=== PATIENT | male | born 1955 | race Caucasian/White ===

== ENCOUNTER 2022-03-13 14:56 | Outpatient (CLI) | payer OTHER, SELFPAY ==
[2022-03-13 19:38] LABS: Hematocrit 42.6 % (42.0-52.0); Hemoglobin 14.5 g/dL (14.0-18.0); Mean Corpuscular Hemoglobin 30.3 pg (26-34); Mean Corpuscular Volume 88.9 fl (80-100); Mean Platelet Volume 9.3 fl (7.4-10.4); Platelet Count Result 281 k/mm3 (150-375); Red Blood Count 4.79 M/mm3 (4.6-6.20); Red Cell Distribution Width 13.8 % (11.5-14.5); White Blood Count 11.8 K/mm3 (4.5-10.0)
[2022-03-13 20:07] LABS: Creatinine Urine 74.6 mg/dL
[2022-03-13 20:09] LABS: Alanine Aminotransferase 18 U/L (6-50); Albumin Level 4.7 g/dL (3.5-5.1); Alkaline Phosphatase 91 U/L (38-126); Anion Gap 12 mmol/L (8-16); Aspartate Amino Transferase 25 U/L (17-59); Bilirubin,Total 1.3 mg/dL (0.2-1.3); Blood Urea Nitrogen 19 mg/dL (9-20); Calcium 9.4 mg/dL (8.4-10.2); Carbon Dioxide 22 mmol/L (22-30); Chloride 103 mmol/L (98-107); Cholesterol 118 mg/dL (0-200); Estimated Glomerular Filt Rate > 60; Glucose 101 mg/dL (65-110); HDL Direct 38 mg/dL; Potassium 4.3 mmol/L (3.4-5.0); Sodium 137 mmol/L (137-145); Triglycerides 209 mg/dL (<150)
[2022-03-13 20:12] LABS: MALB Creatinine Ratio 195.6 mg/g (0-30); Microalbumin Urine Random 145.9 mg/L (0-16.7)
[2022-03-13 20:17] LABS: Hemoglobin A1C 7.1 % (<5.7)
[2022-03-13 20:20] LABS: LDL Cholesterol Direct 39 mg/dL
[2022-03-13 20:40] LABS: Prostate Specific Antigen 1.5 ng/mL (< OR = 4.0)
== END 2022-03-13 14:57 | disposition home or self-care (01) ==
PROVIDERS: PCP Family Medicine; Visit Provider Family Medicine
DX: Z12.5 Encounter for screening for malignant neoplasm of prostate (principal); E11.9 Type 2 diabetes mellitus without complications; I25.10 Atherosclerotic heart disease of native coronary artery without angina pectoris; E03.9 Hypothyroidism, unspecified; Z00.00 Encounter for general adult medical examination without abnormal findings
CPT/HCPCS: 36415; 80053; 80061; 82043; 83036; 84153; 84439; 84443; 85027; G0103

== ENCOUNTER 2022-04-22 12:21 | Outpatient (CLI) | payer OTHER, SELFPAY ==
[2022-04-22 20:30] LABS: Thyroid Stimulating Hormone 0.347 uIU/mL (0.465-4.680)
== END 2022-04-22 12:22 | disposition home or self-care (01) ==
PROVIDERS: PCP Family Medicine; Visit Provider Family Medicine
DX: E03.9 Hypothyroidism, unspecified (principal)
CPT/HCPCS: 36415; 84439; 84443; 84481

== ENCOUNTER 2022-05-07 12:32 | Outpatient (CLI) | payer OTHER, SELFPAY ==
[2022-05-07 20:20] LABS: Thyroid Stimulating Hormone 0.409 uIU/mL (0.465-4.680)
[2022-05-07 21:38] LABS: Free T4 Free Thyroxine 2.04 ng/mL (0.78-2.19)
[2022-05-11 05:13] LABS: Triiodothyronine T3 Free 2.9 pg/mL (2.3-4.2)
== END 2022-05-07 12:33 | disposition home or self-care (01) ==
PROVIDERS: PCP Family Medicine; Visit Provider Family Medicine
DX: E03.9 Hypothyroidism, unspecified (principal)
CPT/HCPCS: 36415; 84439; 84443; 84481

== ENCOUNTER 2022-06-25 12:36 | Outpatient (CLI) | payer OTHER, SELFPAY ==
[2022-06-25 19:04] LABS: Thyroid Stimulating Hormone 0.454 uIU/mL (0.465-4.680)
== END 2022-06-25 12:37 | disposition home or self-care (01) ==
PROVIDERS: PCP Family Medicine; Visit Provider Family Medicine
DX: E03.9 Hypothyroidism, unspecified (principal)
CPT/HCPCS: 36415; 84443

== ENCOUNTER 2022-06-26 14:39 | Outpatient (CLI) | payer OTHER, SELFPAY ==
[2022-06-26 19:29] LABS: Alanine Aminotransferase 26 U/L (6-50); Albumin Level 4.6 g/dL (3.5-5.1); Alkaline Phosphatase 87 U/L (38-126); Anion Gap 12 mmol/L (8-16); Aspartate Amino Transferase 90 U/L (17-59); Bilirubin,Total 1.2 mg/dL (0.2-1.3); Blood Urea Nitrogen 13 mg/dL (9-20); Calcium 9.5 mg/dL (8.4-10.2); Carbon Dioxide 25 mmol/L (22-30); Chloride 102 mmol/L (98-107); Estimated Glomerular Filt Rate > 60; Glucose 134 mg/dL (65-110); Magnesium 2.2 mg/dL (1.6-2.3); Potassium 4.4 mmol/L (3.4-5.0); Sodium 139 mmol/L (137-145)
[2022-06-26 19:31] LABS: Hemoglobin A1C 6.9 % (<5.7)
[2022-06-26 19:55] LABS: Hemoglobin 14.4 g/dL (14.0-18.0); Mean Corpuscular HGB Conc 33.5 g/dl (32-36); Mean Corpuscular Hemoglobin 29.9 pg (26-34); Mean Corpuscular Volume 89.4 fl (80-100); Mean Platelet Volume 9.6 fl (7.4-10.4); Platelet Count Result 262 k/mm3 (150-375); Red Blood Count 4.81 M/mm3 (4.6-6.20); White Blood Count 10.7 K/mm3 (4.5-10.0)
[2022-06-26 20:04] LABS: Iron 60 ug/dL (49-181)
[2022-06-26 20:20] LABS: Percent Iron Saturation 18 % (20-50)
[2022-06-26 20:37] LABS: Creatinine Urine 47.1 mg/dL
[2022-06-26 20:44] LABS: MALB Creatinine Ratio 29.7 mg/g (0-30)
== END 2022-06-26 14:40 | disposition home or self-care (01) ==
PROVIDERS: PCP Family Medicine; Visit Provider Family Medicine
DX: R25.2 Cramp and spasm (principal); I25.10 Atherosclerotic heart disease of native coronary artery without angina pectoris; F41.9 Anxiety disorder, unspecified; E03.9 Hypothyroidism, unspecified; G25.81 Restless legs syndrome; E11.9 Type 2 diabetes mellitus without complications
CPT/HCPCS: 36415; 80053; 82043; 83036; 83540; 83550; 83735; 85027

== ENCOUNTER 2022-08-27 16:10 | Outpatient (CLI) | payer OTHER, SELFPAY ==
--- NOTE | ~2022-08-27 | XR_ITS ---
XR lumbar spine 2-3V DATE: 08/27/2022 16:21 INDICATION: Chronic low back pain TECHNIQUE: AP, lateral, coned lateral lumbosacral views COMPARISON: None FINDINGS: There is minimal dextroscoliosis of the lumbar spine. There is grade 1 anterolisthesis at L5-S1. Prominent degenerative changes are noted at the apophyseal joints. There is severe degenerative disc disease throughout the lumbar and lumbosacral spine. Included lower thoracic and lumbar pedicles are intact. No fracture or bone destruction is detected. The sacral iliac joints are unremarkable. IMPRESSION: Minimal dextro scoliosis Severe degenerative disc disease throughout the lumbar and lumbosacral spine Grade 1 anterolisthesis at L5-S1 Reviewed, dictated and finalized at location B. UCTOR PULLMAN
== END 2022-08-27 16:11 | disposition home or self-care (01) ==
LOC: ANHBWCIMG 16:11
PROVIDERS: PCP Family Medicine; Visit Provider Family Medicine
DX: M51.36 Other intervertebral disc degeneration, lumbar region (principal)
CPT/HCPCS: 72100

== ENCOUNTER 2022-10-16 15:12 | Outpatient (CLI) | payer OTHER, SELFPAY ==
[2022-10-16 22:53] LABS: Free T4 Free Thyroxine 1.46 ng/mL (0.78-2.19)
[2022-10-20 14:24] LABS: Triiodothyronine T3 Free 2.6 pg/mL (2.3-4.2)
== END 2022-10-16 15:13 | disposition home or self-care (01) ==
LOC: ANHBWCLAB 15:13
PROVIDERS: PCP Family Medicine; Visit Provider Family Medicine
DX: E11.9 Type 2 diabetes mellitus without complications (principal); E03.9 Hypothyroidism, unspecified
CPT/HCPCS: 36415; 84439; 84443; 84481

== ENCOUNTER 2022-11-03 13:17 | Outpatient (CLI) | payer OTHER, SELFPAY ==
[2022-11-03 20:36] LABS: Alanine Aminotransferase 24 U/L (6-50); Albumin Level 4.2 g/dL (3.5-5.1); Alkaline Phosphatase 66 U/L (38-126); Anion Gap 7 mmol/L (8-16); Aspartate Amino Transferase 61 U/L (17-59); Bilirubin,Total 1.1 mg/dL (0.2-1.3); Blood Urea Nitrogen 12 mg/dL (9-20); Calcium 8.8 mg/dL (8.4-10.2); Carbon Dioxide 28 mmol/L (22-30); Chloride 106 mmol/L (98-107); Estimated Glomerular Filt Rate > 60; Glucose 145 mg/dL (65-110); Potassium 4.2 mmol/L (3.4-5.0); Sodium 141 mmol/L (137-145)
[2022-11-03 21:06] LABS: Hemoglobin A1C 6.7 % (<5.7)
[2022-11-03 21:16] LABS: Hepatitis B Surface Antigen Negative (Negative)
[2022-11-03 21:19] LABS: MALB Creatinine Ratio 41.3 mg/g (0-30); Microalbumin Urine Random 6.6 mg/L (0-16.7)
[2022-11-03 21:22] LABS: HAV RESULT Negative (Negative); Hepatitis B Core IgM Result Negative (Negative)
[2022-11-03 21:34] LABS: Hepatitis C Virus Antibody Negative (Negative)
[2022-11-06 22:16] LABS: Triiodothyronine T3 Free 2.9 pg/mL (2.3-4.2)
== END 2022-11-03 13:18 | disposition home or self-care (01) ==
PROVIDERS: PCP Family Medicine; Visit Provider Family Medicine
DX: E03.9 Hypothyroidism, unspecified (principal); R74.01 Elevation of levels of liver transaminase levels; E11.9 Type 2 diabetes mellitus without complications; I10 Essential (primary) hypertension; R25.2 Cramp and spasm
CPT/HCPCS: 36415; 80053; 80074; 82043; 82248; 83036; 84481

== ENCOUNTER 2022-11-19 09:12 | Outpatient (CLI) | payer OTHER, SELFPAY ==
--- NOTE | ~2022-11-19 | US_ITS ---
Limited Abdominal Sonogram: Real-time sonographic imaging of the right upper quadrant was performed. Clinical History: Abnormal serum enzymes Findings: The liver appears mildly heterogeneous, with no evidence of mass lesion or bile duct dilat ation. Main portal vein demonstrates normal direction of flow. The gallbladder is well distended, and appears normal with no evidence of gallstone or wall thickening. The common bile duct measures 5 mm. The visualized pancreas, aorta, and IVC are unremarkable. Impression: Possible fatty infiltration of the liver. Reviewed, dictated and finalized at location M. R BRAKEMAN Impression: Possible fatty infiltration of the liver.
== END 2022-11-19 09:13 | disposition home or self-care (01) ==
LOC: ANHIMG 09:17
PROVIDERS: PCP Family Medicine; Visit Provider Family Medicine
DX: R74.8 Abnormal levels of other serum enzymes (principal)
CPT/HCPCS: 76705

== ENCOUNTER 2022-11-24 10:09 | Outpatient (CLI) | payer OTHER, SELFPAY ==
--- NOTE | ~2022-11-24 | XR_ITS ---
AP and lateral views of the right tibia/fibula Clinical History: Osteoarthritis Findings: No acute fracture or dislocation is seen. Osseous alignment is anatomic. Joint spaces are p reserved. Osteochondroma of the proximal fibular neck noted. Soft tissues are unremarkable. Impression: Osteochondroma of the proximal fibular neck. Reviewed, dictated and finalized at location M. ENFORCEMENT OFFICER Impression: Osteochondroma of the proximal fibular neck.
--- NOTE | ~2022-11-24 | XR_ITS ---
Right Knee Technique: AP, lateral, and sunrise views were obtained. Clinical History: Osteoarthritis Findings: No fracture or dislocation is seen. Osteochondroma of the proximal fibular neck noted. Osse ous alignment is anatomic. Joint spaces are preserved. There is minimal spurring at the joint lines a nd patella. Soft tissues are unremarkable. No joint effusion is seen. Impression: Osteochondroma of the proximal fibular neck. Minimal degenerative spurring, as above. Reviewed, dictated and finalized at location M. K OUT CLERK Impression: Osteochondroma of the proximal fibular neck. Minimal degenerative spurring, as above.
== END 2022-11-24 10:10 | disposition home or self-care (01) ==
LOC: ANHBWCIMG 10:10
PROVIDERS: PCP Family Medicine; Visit Provider Family Medicine
DX: D16.21 Benign neoplasm of long bones of right lower limb (principal); M17.9 Osteoarthritis of knee, unspecified; M25.561 Pain in right knee; R60.0 Localized edema
CPT/HCPCS: 73564; 73590

== ENCOUNTER 2022-12-25 14:30 | Outpatient (CLI) | payer OTHER, SELFPAY ==
[2022-12-25 19:52] LABS: Anion Gap 5 mmol/L (8-16); Blood Urea Nitrogen 21 mg/dL (9-20); Calcium 9.4 mg/dL (8.4-10.2); Carbon Dioxide 33 mmol/L (22-30); Chloride 101 mmol/L (98-107); Estimated Glomerular Filt Rate > 60; Glucose 142 mg/dL (65-110); Potassium 4.4 mmol/L (3.4-5.0); Sodium 139 mmol/L (137-145)
== END 2022-12-25 14:31 | disposition home or self-care (01) ==
PROVIDERS: PCP Family Medicine; Visit Provider Internal Medicine Cardiovascular Disease
DX: I25.119 Atherosclerotic heart disease of native coronary artery with unspecified angina pectoris (principal)
CPT/HCPCS: 36415; 80048

== ENCOUNTER 2023-02-05 10:12 | Outpatient (CLI) | payer OTHER, SELFPAY ==
[2023-02-05 19:09] LABS: Anion Gap 6 mmol/L (8-16); Blood Urea Nitrogen 13 mg/dL (9-20); Calcium 9.7 mg/dL (8.4-10.2); Carbon Dioxide 35 mmol/L (22-30); Chloride 95 mmol/L (98-107); Estimated Glomerular Filt Rate > 60; Glucose 131 mg/dL (65-110); Potassium 3.4 mmol/L (3.4-5.0); Sodium 136 mmol/L (137-145)
[2023-02-13 14:16] LABS: Testosterone Free 8.7 pg/mL (35.0-155.0); Testosterone Total 84 ng/dL (250-1100)
== END 2023-02-05 10:13 | disposition home or self-care (01) ==
PROVIDERS: PCP Family Medicine; Visit Provider Internal Medicine Cardiovascular Disease
DX: N52.9 Male erectile dysfunction, unspecified (principal); R53.83 Other fatigue; R68.82 Decreased libido; R49.0 Dysphonia; I10 Essential (primary) hypertension
CPT/HCPCS: 36415; 80048; 84402; 84403; 84443

== ENCOUNTER 2023-04-08 10:30 | Outpatient (CLI) | payer OTHER, SELFPAY ==
[2023-04-08 19:30] LABS: Anion Gap 7 mmol/L (8-16); Blood Urea Nitrogen 9 mg/dL (9-20); Carbon Dioxide 24 mmol/L (22-30); Chloride 106 mmol/L (98-107); Estimated Glomerular Filt Rate > 60; Glucose 123 mg/dL (65-110); Magnesium 1.8 mg/dL (1.6-2.3); Potassium 4.3 mmol/L (3.4-5.0); Sodium 137 mmol/L (137-145)
[2023-04-08 19:43] LABS: Hemoglobin A1C 5.7 % (<5.7)
[2023-04-12 14:24] LABS: Testosterone Free 147.1 pg/mL (35.0-155.0); Testosterone Total 881 ng/dL (250-1100)
== END 2023-04-08 10:31 | disposition home or self-care (01) ==
LOC: ANHBWCLAB 10:31
PROVIDERS: PCP Nurse Practitioner Adult Health; Visit Provider Family Medicine
DX: E03.9 Hypothyroidism, unspecified (principal); E11.9 Type 2 diabetes mellitus without complications; E29.1 Testicular hypofunction; E66.9 Obesity, unspecified; F41.9 Anxiety disorder, unspecified; I10 Essential (primary) hypertension; I25.10 Atherosclerotic heart disease of native coronary artery without angina pectoris; N40.0 Benign prostatic hyperplasia without lower urinary tract symptoms; N52.9 Male erectile dysfunction, unspecified; R68.82 Decreased libido
CPT/HCPCS: 36415; 80048; 83036; 83735; 84402; 84403

== ENCOUNTER 2023-04-15 09:56 | Outpatient (CLI) | payer OTHER, SELFPAY ==
--- NOTE | ~2023-04-15 | XR_ITS ---
EXAMINATION: XR sinus min 3V DATE: 04/15/2023 10:14 INDICATION: Acute sinusitis, unspecified. TECHNIQUE: 5 views of the paranasal sinuses were obtained. COMPARISON: None. FINDINGS: Bone alignment is normal. No fracture. There is partial opacification of the frontal, maxil nomi, and ethmoid sinuses. The sphenoid sinuses are not well evaluated. IMPRESSION: 1. Partial opacification of the paranasal sinuses. Reviewed, dictated and finalized at location A.
== END 2023-04-15 09:57 | disposition home or self-care (01) ==
PROVIDERS: PCP Family Medicine; Visit Provider Nurse Practitioner Adult Health
DX: J01.90 Acute sinusitis, unspecified (principal)
CPT/HCPCS: 70220

== ENCOUNTER 2023-06-22 11:02 | Outpatient (CLI) | payer OTHER, SELFPAY ==
[2023-06-22 20:30] LABS: Prostate Specific Antigen 5.4 ng/mL (< OR = 4.0)
[2023-06-22 20:36] LABS: Hemoglobin 15.5 g/dL (14.0-18.0); Mean Corpuscular HGB Conc 31.6 g/dl (32-36); Mean Corpuscular Hemoglobin 29.4 pg (26-34); Mean Corpuscular Volume 92.8 fl (80-100); Mean Platelet Volume 9.8 fl (7.4-10.4); Platelet Count Result 307 k/mm3 (150-375); Red Blood Count 5.28 M/mm3 (4.6-6.20); Red Cell Distribution Width 17.1 % (11.5-14.5); White Blood Count 8.1 K/mm3 (4.5-10.0)
[2023-06-26 12:49] LABS: Testosterone Free 85.8 pg/mL (35.0-155.0); Testosterone Total 692 ng/dL (250-1100)
== END 2023-06-22 11:03 | disposition home or self-care (01) ==
PROVIDERS: PCP Family Medicine; Visit Provider Family Medicine
DX: E29.1 Testicular hypofunction (principal); I25.10 Atherosclerotic heart disease of native coronary artery without angina pectoris; E11.9 Type 2 diabetes mellitus without complications; Z12.5 Encounter for screening for malignant neoplasm of prostate
CPT/HCPCS: 36415; 84153; 84402; 84403; 85027; G0103

== ENCOUNTER 2023-06-29 13:51 | Outpatient (CLI) | payer OTHER, SELFPAY ==
--- NOTE | ~2023-06-29 | XR_ITS ---
EXAMINATION: XR hip LT min 2V DATE: 06/29/2023 14:01 INDICATION: Left hip pain. TECHNIQUE: 2 views of left hip were obtained. COMPARISON: None. FINDINGS: Bone alignment is normal. No fracture. There is mild left hip osteoarthritis. IMPRESSION: 1. Mild left hip osteoarthritis. Reviewed, dictated and finalized at location E.
== END 2023-06-29 13:52 | disposition home or self-care (01) ==
PROVIDERS: PCP Nurse Practitioner Adult Health; Visit Provider Nurse Practitioner Adult Health
DX: M16.12 Unilateral primary osteoarthritis, left hip (principal)
CPT/HCPCS: 73502

== ENCOUNTER 2023-07-09 11:43 | Outpatient (CLI) | payer OTHER, SELFPAY ==
[2023-07-09 19:15] LABS: Alanine Aminotransferase 16 U/L (6-50); Alkaline Phosphatase 49 U/L (38-126); Anion Gap 5 mmol/L (8-16); Aspartate Amino Transferase 101 U/L (17-59); Bilirubin,Total 1.1 mg/dL (0.2-1.3); Blood Urea Nitrogen 15 mg/dL (9-20); Calcium 8.6 mg/dL (8.4-10.2); Carbon Dioxide 26 mmol/L (22-30); Chloride 106 mmol/L (98-107); Cholesterol 123 mg/dL (0-200); Estimated Glomerular Filt Rate > 60; Glucose 107 mg/dL (65-110); HDL Direct 26 mg/dL; Potassium 3.8 mmol/L (3.4-5.0); Sodium 137 mmol/L (137-145); Triglycerides 155 mg/dL (<150)
[2023-07-09 19:24] LABS: NT Pro B Type Natriuretic Pept 204 pg/mL (19.9-100)
[2023-07-09 19:29] LABS: LDL Cholesterol Direct 59 mg/dL
[2023-07-09 20:23] LABS: Hemoglobin A1C 5.1 % (<5.7)
== END 2023-07-09 11:44 | disposition home or self-care (01) ==
PROVIDERS: PCP Nurse Practitioner Adult Health; Visit Provider Internal Medicine Cardiovascular Disease
DX: E78.2 Mixed hyperlipidemia (principal); I25.10 Atherosclerotic heart disease of native coronary artery without angina pectoris; E11.9 Type 2 diabetes mellitus without complications; I25.5 Ischemic cardiomyopathy; R06.2 Wheezing
CPT/HCPCS: 36415; 80048; 80061; 80076; 83036; 83880; 84443

== ENCOUNTER 2024-01-25 09:14 | Outpatient (CLI) | payer OTHER, SELFPAY ==
[2024-01-25 19:21] LABS: Prothrombin Time 13.3 Seconds (11.1-14.7)
[2024-01-25 19:22] LABS: Basophils Percent Auto 0.5 % (0.2-1.2); Eosinophils Absolute Auto 0.4 K/mm3 (0-0.3); Eosinophils Percent Auto 4.4 % (0-4.4); Hematocrit 43.8 % (42.0-52.0); Hemoglobin 14.3 g/dL (14.0-18.0); Immature Granulocyte Absolute 0.03 K/mm3 (0.00-0.031); Immature Granulocyte Percent A 0.4 % (0-0.5); Lymphocytes Absolute Auto 1.91 K/mm3 (0.9-3.2); Lymphocytes Percent Auto 22.6 % (18.3-44.2); Mean Corpuscular HGB Conc 32.6 g/dl (32-36); Mean Corpuscular Hemoglobin 30.9 pg (26-34); Mean Corpuscular Volume 94.6 fl (80-100); Mean Platelet Volume 9.7 fl (7.4-10.4); Monocytes Absolute Auto 0.9 K/mm3 (0.1-0.6); Monocytes Percent Auto 11.1 % (2.6-8.5); Neutrophils Absolute Auto 5.2 K/mm3 (1.3-6.7); Platelet Count Result 253 k/mm3 (150-375); Red Blood Count 4.63 M/mm3 (4.6-6.20); Red Cell Distribution Width 14.7 % (11.5-14.5); White Blood Count 8.5 K/mm3 (4.5-10.0)
[2024-01-25 19:51] LABS: Free T4 Free Thyroxine 1.65 ng/mL (0.78-2.19)
[2024-01-25 22:00] LABS: Alanine Aminotransferase 34 U/L (6-50); Albumin Level 4.5 g/dL (3.5-5.1); Alkaline Phosphatase 51 U/L (38-126); Anion Gap 8 mmol/L (4-12); Aspartate Amino Transferase 106 U/L (17-59); Bilirubin,Total 1.4 mg/dL (0.2-1.3); Blood Urea Nitrogen 21 mg/dL (9-20); Calcium 9.8 mg/dL (8.4-10.2); Carbon Dioxide 26 mmol/L (22-30); Chloride 106 mmol/L (98-107); Cholesterol 119 mg/dL (0-200); Estimated Glomerular Filt Rate > 60; Glucose 120 mg/dL (65-110); HDL Direct 42 mg/dL; Magnesium 2.4 mg/dL (1.6-2.3); Potassium 4.2 mmol/L (3.4-5.0); Sodium 140 mmol/L (137-145); Triglycerides 138 mg/dL (<150)
[2024-01-25 22:30] LABS: LDL Cholesterol Direct 47 mg/dL
[2024-01-25 22:31] LABS: Prostate Specific Antigen 1.5 ng/mL (< OR = 4.0)
[2024-01-25 23:06] LABS: Hemoglobin A1C 5.8 % (<5.7)
[2024-01-26 08:20] LABS: NT Pro B Type Natriuretic Pept 120 pg/mL (19.9-100)
[2024-01-29 10:13] LABS: Testosterone Free 45.9 pg/mL (35.0-155.0); Testosterone Total 499 ng/dL (250-1100)
== END 2024-01-25 09:15 | disposition home or self-care (01) ==
PROVIDERS: PCP Nurse Practitioner Adult Health; Visit Provider Internal Medicine Cardiovascular Disease
DX: Z12.5 Encounter for screening for malignant neoplasm of prostate (principal); R97.20 Elevated prostate specific antigen [PSA]; E03.9 Hypothyroidism, unspecified; I25.10 Atherosclerotic heart disease of native coronary artery without angina pectoris; I10 Essential (primary) hypertension; E11.9 Type 2 diabetes mellitus without complications; E29.1 Testicular hypofunction; Z13.9 Encounter for screening, unspecified; R60.0 Localized edema
CPT/HCPCS: 36415; 80053; 80061; 83036; 83735; 83880; 84153; 84402; 84403; 84439; 84443; 85025; 85610; G0103

== ENCOUNTER 2024-05-04 09:42 | Outpatient (CLI) | payer OTHER, SELFPAY ==
--- NOTE | ~2024-05-04 | CT_ITS ---
EXAMINATION: CT sinus wo con DATE: 05/04/2024 09:52 INDICATION: Chronic sinusitis TECHNIQUE: Computed tomography (CT) of the paranasal sinuses was performed without intravenous contra st. The dose-length product was 451.82 mGy-cm. Automated exposure control and iterative reconstructio n technique were employed. COMPARISON: None FINDINGS: There is mucosal thickening of the maxillary, ethmoid, sphenoid and frontal sinuses. There is rightward nasal septal deviation. Ostiomeatal units are occluded by soft tissue. Small mastoid eff usions. IMPRESSION: 1. Moderate pansinusitis. Reviewed, dictated and finalized at location B. IMPRESSION: 1. Moderate pansinusitis.
== END 2024-05-04 09:43 ==
LOC: GOSHIMG 09:43
PROVIDERS: PCP Nurse Practitioner Adult Health; Visit Provider Otolaryngology
DX: J32.4 Chronic pansinusitis (principal)
CPT/HCPCS: 70486

== ENCOUNTER 2024-06-16 12:09 | Outpatient (CLI) | payer OTHER, SELFPAY ==
--- NOTE | 2024-06-16 12:19 | ECG_ITS ---
Test Date: 2024-06-16 12:45:00 Measurements Intervals [place] Rate: 70 P: 44 NM: 222 QRS: 18 QRSD: 111 T: -11 QT: 381 QTc: 413 Interpretive Statements SINUS RHYTHM WITH FIRST DEGREE AV BLOCK WITH OCCASIONAL VENTRICULAR PREMATURE COMPLEXES INTRAVENTRICULAR CONDUCTION DELAY POOR R WAVE PROGRESSION BORDERLINE T WAVE ABNORMALITY- INFERIOR LEADS BASELINE ARTIFACT- I, II, III, AVR, AVL, AVF, V1-V6 BORDERLINE ECG No previous ECG available for comparison Electronically Signed On 06-16-2024 12:47:15 CDT by Raymundo Santamaria D.O.
[2024-06-16 13:20] LABS: Anion Gap 8 mmol/L (4-12); Blood Urea Nitrogen 20 mg/dL (9-20); Calcium 9.4 mg/dL (8.4-10.2); Carbon Dioxide 30 mmol/L (22-30); Chloride 98 mmol/L (98-107); Estimated Glomerular Filt Rate > 60; Glucose 111 mg/dL (65-110); Potassium 4.3 mmol/L (3.4-5.0); Sodium 136 mmol/L (137-145)
== END 2024-06-16 12:10 | disposition home or self-care (01) ==
PROVIDERS: Anesthesiology; PCP Nurse Practitioner Adult Health; Visit Provider Otolaryngology
DX: Z01.818 Encounter for other preprocedural examination (principal); E11.9 Type 2 diabetes mellitus without complications; I10 Essential (primary) hypertension
CPT/HCPCS: 36415; 80048; 93005

== ENCOUNTER 2024-06-20 00:56 | Day surgery (SDC) | payer OTHER, SELFPAY ==
[2024-06-14 09:39] VITALS: BMI 24.4
--- NOTE | 2024-06-14 11:16 | PC.NURSE ---
Report to the Outpatient Waiting Room, entrance under the green pavilion located off [facility], at time _7:30AM_ on date __. Planned Procedure Time: __9:30AM .? Time changes happen often and if your time is changed the preop area will call you the afternoon before. - You and your visitor will be asked to self-screen and do not enter if you have any COVID symptoms. Please call surgeon if you need to reschedule. - A mask is optional within the hospital at this time. Patients may have clear liquids (water, carbonated beverages, clear teas, apple juice) until 3 hours prior to surgery with a maximum of 20 ounces. - No food from midnight until time of surgery and no smoking. Take only the following medications with a SIP of water on the morning of surgery: __CARVEDILOL, LEVOTHYROXINE. MAY TAKE LORAZEPAM NEEDED. DO NOT STOP ANY OF YOUR OTHER PRESCRIPTION MEDICATIONS PRIOR TO SURGERY EXCEPT THE FOLLOWING Medications to discontinue per physician ___HOLD PLAVIX 5 DAYS PRE-OP PER DR ROLAND(PER PATIENT)- LAST DOSE-06/14/24. HOLD ALL VITAMINS/SUPPLEMENTS 3 DAYS PRE-OP PER ANESTHESIA- LAST DOSE 06/16/24__ Please no make-up, nail danish, hairspray, perfume, deodorant, or body powder the day of surgery.? No jewelry (including any body piercings) or valuables the day of surgery, leave them at home.? Please take a shower or bath the night before, or the morning of, surgery with an antibacterial soap.? Wear comfortable, loose fitting clothing.? - Jewelry must be removed prior to entering the operating room.? Rings and piercings that are not removed may be cut off. - The hospital will not accept responsibility for valuables.? - Please leave all valuables, including medications, at home the day of surgery. If you are going home after surgery, a licensed bobcat driver/labor must drive you home.? - NO public transportation without another adult if you receive anesthesia. - We recommend that an adult stay with you for 24 hours following discharge. - We also recommend that you do not drive, make important decision, drink alcoholic beverages, or take any drugs that were not prescribed by your health care provider for at least 24 hours after your discharge time. Follow any additional instructions given to you from your surgeon. Telephone instructions given to ___PATIENT'S (JIMMIE) and asked if any additional questions and then verbalized understanding. Patient advised to call surgeon office or pre surgery nurse liaison [phone] if any additional questions.
[2024-06-20] VITALS (12 sets, daily range): BP systolic 108–194; BP diastolic 65–86; PULSE 71–85; RESP 14–22; TEMP 36.1–36.2; O2SAT 99–100; BMI 25.9
--- NOTE | 2024-06-20 07:01 | WPDHPUPDATE1 ---
History and Physical Update Update Date/Time: 06/20/24 07:01 History and Physical has been reviewed, including an updated exam of the patient. There are NO changes in the patient's condition. Risks, benefits, and alternatives have been discussed and questions answered. Patient agrees to proceed with procedure.
[2024-06-20] MEDS: LACTATED RINGERS 1,000 ML 30 ML IV CONT (08:00)
[2024-06-20] MEDS: OXYMETAZOLINE HCL 0.05% NAS 15 ML BTL (*BKC) 1 SPRAY NASAL (08:20)
[2024-06-20] MEDS: ACETAMINOPHEN 500 MG TABLET 1000 MG PO (08:20)
[2024-06-20 08:23] LABS: Glucose Point of Care 113 mg/dl (65-105)
--- NOTE | 2024-06-20 08:28 | WPDANESEPPF ---
Anes - Initial Pre Proc Eval Procedure: Operation Date: 06/20/24 09:30 Proposed Procedures p Fusion Guided Bilateral Frontal Sinusotomy, Bilateral Ethmoidectomy, Bilateral Sphenoidotomy, Bilateral Maxillary Antrostomy, Bilateral Turbinate Reduction - Jose Gilbert MD s Septoplasty - Jose Gilbert MD Date/Time: 06/20/24 08:28 Surgeon: Jose Gilbert MD Pre Op Diagnosis: chronic sinusitis, deviated septum Patient Data Age: 69 Gender: M Height: 1.75 m Weight: 75 kg Allergies Allergy/AdvReac Type Severity Reaction Status Date / Time losartan Allergy swollen Verified 06/14/24 09:30 Tongue lisinopril AdvReac Unknown Confusion Verified 06/14/24 09:30 Home Medications Medication Instructions Recorded Confirmed Type clopidogrel 75 mg tablet 75 mg PO DAILY 02/24/22 06/14/24 History spironolactone 25 mg tablet 12.5 mg PO DAILY 02/24/22 06/14/24 History syringe with needle, safety 1 mL #14 ea 02/23/23 04/20/24 Rx 23 gauge x 1 mupirocin 2 % topical ointment See Rx Instructions .Route 10/19/23 06/14/24 Rx .COMPLEX #22 grams pantoprazole 20 mg tablet,delayed See Rx Instructions .Route 12/08/23 06/14/24 Rx release .COMPLEX #90 tabs metformin 1,000 mg tablet See Rx Instructions .Route 01/12/24 06/14/24 Rx .COMPLEX #180 tabs tirzepatide 12.5 mg/0.5 mL See Rx Instructions .Route 02/18/24 06/14/24 Rx subcutaneous pen injector .COMPLEX #4 mL ([place]) tamsulosin 0.4 mg capsule 0.4 mg PO DAILY #90 caps 03/09/24 06/14/24 Rx rosuvastatin 40 mg tablet 40 mg PO DAILY #90 tabs 03/16/24 06/14/24 Rx solifenacin 5 mg tablet 5 mg PO DAILY 03/31/24 06/14/24 History levothyroxine 100 mcg capsule 100 mcg PO DAILY #90 caps 04/18/24 06/14/24 Rx triamcinolone acetonide 0.1 % 1 applic topical BID #80 grams 04/20/24 06/14/24 Rx topical cream trazodone 150 mg tablet See Rx Instructions .Route 05/10/24 06/14/24 Rx .COMPLEX #90 tabs hydrocodone 7.5 mg-acetaminophen 1 tablet PO QHS PRN pain #20 tabs 06/06/24 06/14/24 Rx 325 mg tablet carvedilol 6.25 mg tablet 6.25 mg PO BID 06/14/24 06/14/24 History furosemide 20 mg tablet 20 mg PO QAM PRN Edema 06/14/24 06/14/24 History lorazepam 0.5 mg tablet 0.5 mg PO DAILY PRN anxiety #30 06/14/24 Rx tabs magnesium oxide 400 mg PO DAILY 06/14/24 06/14/24 History metolazone 2.5 mg tablet 2.5 mg PO QAM 06/14/24 06/14/24 History multivitamin 1 tablet PO DAILY 06/14/24 06/14/24 History sildenafil 100 mg tablet See Rx Instructions .Route 06/14/24 06/14/24 History .COMPLEX PRN Sexual Activity ropinirole 0.25 mg tablet See Rx Instructions .Route 06/17/24 Rx .COMPLEX #180 tabs Laboratory Tests 06/20/24 08:18 POC Capillary Glucose 113 H mg/dl (65-105) Patient hx anesthesia problems: none Family hx anesthesia problems: none Results Review: All pre-operative results and documents have been reviewed as part of the pre-operative evaluation. [facility] Family History Family History Father Cancer Mother Asthma Diabetes mellitus Depression Heart disease Grandparent Diabetes mellitus Social History Social History Smoking status: Never smoker Alcohol intake: never Substance use: never Substance use type: does not use Lack of Transportation: No Lack of Food: Never True Current Housing: I Have Housing Concerned About Future Housing: No Difficulty Paying Gas/Electric Bills: No Difficulty Paying for Meds: No Currently Unemployed: No Education: High School Diploma/GED Difficulty w/ Childcare or Family Care: No Living arrangements: with family Additional living arrangements comments: Gender identity (if verbalized by the patient): Male Spiritual care concerns: No Agree to blood products: Yes Anes - Eval Final PreProcedure Day of Procedure 06/20/24 08:28 Patient weight: normal He
--- NOTE | 2024-06-20 08:52 | W.PM.PROC2 ---
Procedure Note - Detailed Date of Procedure 06/20/24 Pre-op Diagnosis chronic sinusitis, deviated septum Post-op Diagnosis Same Procedure Performed Bilateral frontal sinusotomy, total ethmoidectomy, sphenoidotomy, maxillary antrostomy, turbinoplasty, septoplasty, image guided Surgeon Jose Gilbert MD Anesthesia General Indications Chronic sinusitis, deviated nasal septum Findings Significant septal bleeding, was not able to fully control with cautery, resolved after cantor splints placed. Bilateral nasopore placed Description of Procedure On the date of procedure the patient was met in the preoperative area and risk and benefits of the procedure reviewed with the patient as documented in the H&P and they elected to proceed with surgery. Patient was brought back to the operating room by the anesthesia team and underwent general endotracheal anesthesia. Once an adequate plane of anesthesia was obtained a timeout was performed to assure the patient identification the patient here to be performed were correct. They were.The patient was then prepped and draped in the normal fashion for endoscopic sinus surgery. The diffusion image guidance system was calibrated and used for the entire case. Afrin-soaked pledgets were placed in the nasal cavities bilaterally. The entire case was performed under endoscopic visualization. Nasal endoscopy was performed at the beginning of the case. 1% lidocaine with 1:100,000 epinephrine was then injected into the root of the middle turbinate and lateral nasal wall. The right side was narrowed due to septal deviation.? Thus, septoplasty was required.? A left hemitransfixion incision was made in the left caudal septum and a mucoperichondrial flap was elevated in the usual fashion. The flap was elevated under endoscopic visualization and the remainder of the case was performed with endoscopic assistance. Using a D-knife, an incision was made through the cartilaginous septum with care to preserve the appropriate caudal and dorsal ?L-strut? of cartilage. The cartilage was then disarticulated from the bony-cartilaginous junction and the deviated cartilage was removed. Further deviated bone and cartilage was removed from the maxillary crest and posterior bony septum with care to avoid injury to the mucoperichondrial flap using a combination of dissection and Pat forceps. Once this was completed, the hemitransfixion incision was closed using simple interrupted 4-0 chromic suture. A quilting stitch to reapproximate the mucoperichondrial flaps was then placed using 4-0 plain gut suture on a Hoang needle. There was moderate bleeding during septoplasty, seemed to calm down after suturing. Attention was then directed towards the right side. The middle turbinate was medialized and the osteomeatal complex was identified with a justice probe. Using a 90 degree backbiter, the uncinate process was reflected anteriorly and removed using a combination of sharp and powered dissection. The maxillary antrostomy was then created and widened by identifying the natural ostia and opening the sinus with straight christiano-cut forceps, backbiter, and microdebrider. Continuing with the microdebrider, the anterior ethmoid bulla was opened. Careful dissection was carried out posteriorly, through the basal lamella and posterior ethmoid cells until the sphenoid rostrum was identified. A Alma suction bluntly identified the sphenoid os and the opening was widened with microdebrider and mushroom punch to 5mm. Using an image guided curved suction as well as J-curette, the posterior most ethmoid cell was identified and the ethmoids were bluntly fractured and dissected from posterior to anterior along the base of the skull. The remaining bone fragments were removed with appropriate curved instruments and microdebrider.? Lastly, image guided frontal suction and sinus seeker were used to identify the frontal sinus and enter it.? Next, the left maxillary antrostomy, ethmoidect
[2024-06-20] MEDS: ceFAZolin 2 GM/D5W 50 ML 2 GM/50 ML BAG IVPB (09:18)
[2024-06-20] MEDS: LIDO 1%/EPINEPHRINE 1:100,000 20 ML VIAL 10 ML INFILTRATE (09:42)
[2024-06-20] MEDS: MUPIROCIN 2% OINT 22 GM TUBE 1 APPLIC TOPICAL (10:24)
[2024-06-20] MEDS: fentaNYL CITRATE INJ (*CRX) 100 MCG/2 ML VIAL 25 MCG IV PUSH ×8 (11:24→12:29)
[2024-06-20] MEDS: diazePAM INJ (*CRX) 10 MG/2 ML SYRINGE 2.5 MG IV PUSH ×2 (11:48→12:13)
[2024-06-20 12:03] LABS: Glucose Point of Care 192 mg/dl (65-105)
--- NOTE | 2024-06-20 12:08 | SUR.PHASEI ---
Colleen SPOKE WITH CÜR REP GAINES, WHO RAN A REPORT ON DOMINIK'S ICD AND SAID ALL WAS GOOD.
[2024-06-20] MEDS: oxyCODONE HCL (*CRX) 5 MG TAB IR PO (13:30)
[2024-06-20] MEDS: diphenhydrAMINE HCl INJ 50 MG/ML VIAL 25 MG IV PUSH (14:01)
== END 2024-06-20 14:54 | disposition home or self-care (01) ==
PROVIDERS: PCP Nurse Practitioner Adult Health; Visit Provider Otolaryngology
PROC: (CPT 31253; principal; 2024-06-20 09:30)
PROC: (CPT 30520; 2024-06-20 09:30)
DX: J32.9 Chronic sinusitis, unspecified (principal); J34.2 Deviated nasal septum; E11.9 Type 2 diabetes mellitus without complications; E07.9 Disorder of thyroid, unspecified; I51.9 Heart disease, unspecified; I25.2 Old myocardial infarction; Z79.891 Long term (current) use of opiate analgesic; Z79.02 Long term (current) use of antithrombotics/antiplatelets; Z79.84 Long term (current) use of oral hypoglycemic drugs; Z79.85 Long-term (current) use of injectable non-insulin antidiabetic drugs; Z98.890 Other specified postprocedural states; Z95.5 Presence of coronary angioplasty implant and graft; Z80.9 Family history of malignant neoplasm, unspecified; Z82.49 Family history of ischemic heart disease and other diseases of the circulatory system
CPT/HCPCS: 31253; 31256; 30140; 30520; 31287; 61782; 36415; 80048; 82948; 93005; A9270; J0690; J1100; J1200; J2250; J2405; J2704; J3010; J3360; J7030; J7120

== ENCOUNTER 2024-06-30 14:17 | Outpatient (CLI) | payer OTHER, SELFPAY ==
[2024-06-30 18:40] LABS: Hematocrit 40.3 % (42.0-52.0); Hemoglobin 14.2 g/dL (14.0-18.0); Mean Corpuscular HGB Conc 35.2 g/dl (32-36); Mean Platelet Volume 9.3 fl (7.4-10.4); Platelet Count Result 405 k/mm3 (150-375); Red Blood Count 4.74 M/mm3 (4.6-6.20); Red Cell Distribution Width 12.7 % (11.5-14.5); White Blood Count 18.8 K/mm3 (4.5-10.0)
[2024-06-30 19:06] LABS: Alanine Aminotransferase 25 U/L (6-50); Albumin Level 4.7 g/dL (3.5-5.1); Alkaline Phosphatase 97 U/L (38-126); Anion Gap 17 mmol/L (4-12); Aspartate Amino Transferase 94 U/L (17-59); Bilirubin,Total 1.9 mg/dL (0.2-1.3); Blood Urea Nitrogen 19 mg/dL (9-20); Calcium 9.6 mg/dL (8.4-10.2); Carbon Dioxide 30 mmol/L (22-30); Chloride 77 mmol/L (98-107); Cholesterol 93 mg/dL (0-200); Estimated Glomerular Filt Rate > 60; Glucose 123 mg/dL (65-110); HDL Direct 42 mg/dL; Potassium 3.2 mmol/L (3.4-5.0); Sodium 124 mmol/L (137-145); Triglycerides 188 mg/dL (<150)
[2024-06-30 19:39] LABS: LDL Cholesterol Direct < 30 mg/dL
[2024-06-30 20:13] LABS: Creatinine Urine 117.9 mg/dL
[2024-06-30 20:55] LABS: MALB Creatinine Ratio 186.4 mg/g (0-30); Microalbumin Urine Random 219.8 mg/L (0-16.7)
[2024-06-30 21:11] LABS: Hemoglobin A1C 6.4 % (<5.7)
== END 2024-06-30 14:18 | disposition home or self-care (01) ==
PROVIDERS: PCP Nurse Practitioner Adult Health; Visit Provider Nurse Practitioner Adult Health
DX: E11.9 Type 2 diabetes mellitus without complications (principal); I10 Essential (primary) hypertension
CPT/HCPCS: 36415; 80053; 80061; 82043; 82565; 83036; 85027

== ENCOUNTER 2024-07-05 10:24 | Outpatient (CLI) | payer OTHER, SELFPAY ==
[2024-07-05 19:47] LABS: Anion Gap 11 mmol/L (4-12); Blood Urea Nitrogen 11 mg/dL (9-20); Calcium 9.8 mg/dL (8.4-10.2); Carbon Dioxide 30 mmol/L (22-30); Chloride 91 mmol/L (98-107); Estimated Glomerular Filt Rate > 60; Glucose 201 mg/dL (65-110); Potassium 3.1 mmol/L (3.4-5.0); Sodium 132 mmol/L (137-145)
== END 2024-07-05 10:25 | disposition home or self-care (01) ==
PROVIDERS: PCP Nurse Practitioner Adult Health; Visit Provider Nurse Practitioner Adult Health
DX: E87.6 Hypokalemia (principal)
CPT/HCPCS: 36415; 80048

== ENCOUNTER 2024-07-13 12:44 | Outpatient (CLI) | payer OTHER, SELFPAY ==
[2024-07-13 19:37] LABS: Potassium 4.7 mmol/L (3.4-5.0)
== END 2024-07-13 12:45 | disposition home or self-care (01) ==
PROVIDERS: PCP Nurse Practitioner Adult Health; Visit Provider Nurse Practitioner Adult Health
DX: E87.6 Hypokalemia (principal)
CPT/HCPCS: 36415; 84132

== ENCOUNTER 2024-11-16 14:54 | Emergency (ER) | payer OTHER, SELFPAY ==
[2024-11-16 14:55] VITALS: BP 150/95; PULSE 99; RESP 24; TEMP 36.4; O2SAT 98
--- NOTE | 2024-11-16 15:04 | ED_ITS ---
HPI - Anxiety General Chief Complaint: Anxiety Stated Complaint: Anxiety Time Seen by Provider: 11/16/24 14:55 Source: patient, RN notes reviewed and old records reviewed Mode of arrival: ambulatory Limitations: no limitations History of Present Illness HPI narrative: 69-year-old male presents to [facility] accompanied by with complaints of acute anxiety reaction. states this started around 11:00 a.m. this morning and he took 2 Buspirone at 1130 and didn't feel any relief of his anxiety. They did go to physician's office and was told they were not able to be seen there today there was no appointments available. They then went to [facility] emergency room and left there because they had to wait for treatment and showed up to express care stating acute panic attack. Patient reports that his feet are sweating he feels dizzy and he feel hot all over. reports that patient has had panic attacks in the past. Patient had open heart surgery in the past has AICD and is diabetic, patient refuses to allow EKG to be done. Discussed with and patient need to go to ED for further evaluation and treatment and are agreeable to go to [facility] and want to go by ambulance. Call placed to ED at [facility] with report given and [facility] ambulance responded to clinic at 1530. They evaluated patient and placed quality assurance monitor on patient and did EKG and discussed with patient and family that even if he goes by ambulance doesn't mean he will go right in for treatment which had already been told by this provider. Patient and then declined transfer by ambulance and staff w as told they would go to ED per private car. Patient left facility with per wheelchair at 1555. complaint: anxiety and other (panic attack, acute anxiety reaction.) Onset (ago): hour(s) (at 1100) Symptoms: other (feels hot all over feels dizzy.) Severity: moderate History of similar episodes: Yes Associated symptoms: other (feels hot all over feels dizzy, anxious) Related Data Home Medications ?Medication ?Instructions ?Recorded ?Confirmed ?Last Taken ?Type clopidogrel 75 mg tablet 75 mg PO DAILY 02/24/22 10/26/24 06/14/24 History spironolactone 25 mg tablet 12.5 mg PO DAILY 02/24/22 10/26/24 Unknown History solifenacin 5 mg tablet 5 mg PO DAILY 03/31/24 10/26/24 Unknown History carvedilol 6.25 mg tablet 6.25 mg PO BID 06/14/24 10/26/24 Unknown History furosemide 20 mg tablet 20 mg PO QAM PRN Edema 06/14/24 10/26/24 Unknown History magnesium oxide 400 mg PO DAILY 06/14/24 10/26/24 06/16/24 History multivitamin 1 tablet PO DAILY 06/14/24 10/26/24 06/16/24 History finasteride 5 mg tablet 5 mg PO DAILY 06/30/24 10/26/24 Unknown History Allergies Allergy/AdvReac Type Severity Reaction Status Date / Time losartan Allergy swollen Verified 11/16/24 15:17 Tongue lisinopril AdvReac Unknown Confusion Verified 11/16/24 15:17 Review of Systems Review of Systems: CONSTITUTIONAL: Denies fever, chills, or sweats. EYES: Denies visual changes, redness, or discharge. ENT: Denies rhinorrhea, congestion, sore throat, or otalgia. CARDIOVASCULAR: Denies chest pain, palpitations, or edema. RESPIRATORY: Denies cough or dyspnea. GASTROINTESTINAL: Denies abdominal pain, nausea, vomiting, or diarrhea. GENITOURINARY: Denies dysuria or hematuria. SKIN: Denies rash or itching. MUSCULOSKELETAL: Denies back pain, joint pain, or myalgia. NEUROLOGIC: Denies headache, numbness, or weakness. PSYCHIATRIC: Reports history of anxiety and depression.past panic attacks All systems reviewed & are unremarkable except as noted in HPI and below PMFSH Past Medical History Medical History Forgetfulness Paroxysmal A-fib Myocardial infarction History of placement of internal cardiac defibrillator Elevated cholesterol CAD (coronary artery disease) Type 2 diabetes mellitus Hypothyroidism Hypertension Acute anxiety Surgical History Surgical History H/O vasectomy H/O sinus surgery Total knee replacement status History of heart artery stent History of open heart surgery Family History Family History Father Cancer Mother Asthma Diabetes mellitus Depression Heart disease Grandparent Diabetes mellitus Social History Social History Smoking status: Never smoker Alcohol intake: never Substance use: never Substance use type: does not use Lack of Transportation: No Lack of Food: Never True Current Housing: I Have Housing Concerned About Future Housing: No Difficulty Paying Gas/Electric Bills: No Difficulty Paying for Meds: No Currently Unemployed: No Education: High School Diploma/GED Difficulty w/ Childcare or Family Care: No Living arrangements: with family Additional living arrangements comments: Gender identity (if verbalized by the patient): Male Spiritual care concerns: No Agree to blood products: Yes Comments At time of signature, agree with nursing past medical, surgical, social and family history. There is no relevant family history pertinent to the presenting complaint Exam Narrative: GENERAL: Chronic illappearing, well-nourished, acute painc attack episode HEAD: Normocephalic, atraumatic. EYES: PERRLA and EOMI. ENT: Nares clear, no rhinorrhea or epistaxis. Mucous membranes moist. NECK: Supple. no lymphadenopathy CHEST: Clear to auscultation. No respiratory distress. mild tachypnea, no retractions, SAO2 98% on room air HEART: Regular rate and rhythm. No murmur heard. Normal peripheral pulses. ABDOMEN: Soft, nontender, nondistended, normal active bowel sounds. EXTREMITIES: Normal range of motion. No edema. SKIN: Warm, dry, no rash. NEURO: No focal deficits. Alert and oriented x3.admits to some forgetfulness, reports feelings of dizziness acute anxiety with feeling of being hot all over taking shirt off and socks Course Course Emergency Course: Patient is aware of diagnosis, understands and agrees to treatment plan.? Anticipatory guidance given.? Patient agrees to follow-up as directed and is aware of reasons to seek care at the emergency department and is agreeable for transfer for further evaluation. Portions of this record may have been created with voice recognition software Level of Care: Express Care Visit Vital Signs Vital signs: Vital Signs Temperature 36.4 C 11/16/24 14:55 Pulse Rate 99 11/16/24 14:55 Respiratory Rate 24 H 11/16/24 14:55 Blood Pressure 150/95 H 11/16/24 14:55 Pulse Oximetry 98 11/16/24 14:55 Oxygen Delivery Room Air 11/16/24 14:55 Temperature 36.4 C 11/16/24 14:55 Pulse Rate 99 11/16/24 14:55 Respiratory Rate 24 H 11/16/24 14:55 Blood Pressure 150/95 H 11/16/24 14:55 Pulse Oximetry 98 11/16/24 14:55 Oxygen Delivery Room Air 11/16/24 14:55 Reviewed Transfer Transfered to: [facility]: ALS (ambulance came to transport then family declined stating would go by private car) Transfer rationale: Acute anxiety attack needs further evaluation, labs for evaluation of electrolytes, anti anxiety medication. Accepting physician: Adalid Transfer comments: wanted to transfer by ambulance then refused transport after talking with ambulance staff and then stated would go by private car MDM - Anxiety MDM Narrative Medical decision making narrative: 1520 Call placed to ED at [facility] and report of patient current condition. VS, PMH reviewed with Fadumo RANODLPH with Dr Cordoba accepting for transfer. Differential Diagnosis Differential diagnosis: Likely hyperventilation, panic disorder, acute anxiety and other (medication reaction, electrolyte imbalance) Medical Records Attestation: I reviewed the patient's medical records. Lab Data Attestation: I reviewed the patient's lab results. Lab results narrative: Influenza A negative, Influenza B negative, COVID antigen negative Labs: Lab Results 11/16/24 Range/Units 15:23 POC Influenza A Ag Negative (Negative) POC Influenza B Ag Negative (Negative) POC SARS CoV-2 Ag Negative (Negative) reviewed Critical Care Time Critical Care Time Critical Care Time: No Discharge Plan Discharge Clinical Impression: Acute anxiety, Panic disorder Patient Disposition: Acute Care Hospital Condition: Stable Patient Language: Cambodian Prescriptions: No Action clopidogrel 75 mg tablet 75 mg PO DAILY spironolactone 25 mg tablet 12.5 mg PO DAILY Patient Comments: QAM naloxone [Narcan] 4 mg/actuation spray,non-aerosol 1 spray intranasal Q2-3M PRN (Reason: opioid overdose) Qty: 2 0RF Rx Instructions: spray 1 dose into ONE nostril; alternate nostrils w each dose until help arrives (DME) syringe with needle, safety 1 mL 23 gauge x 1 syringe See Rx Instructions .Route Qty: 14 0RF Rx Instructions: As directed finasteride 5 mg tablet 5 mg PO DAILY solifenacin 5 mg tablet 5 mg PO DAILY carvedilol 6.25 mg tablet 6.25 mg PO BID furosemide 20 mg tablet 20 mg PO QAM PRN (Reason: Edema) multivitamin Tablet 1 tablet PO DAILY magnesium oxide 400 mg magnesium Capsule 400 mg PO DAILY mupirocin 2 % ointment See Rx Instructions .ROUTE .COMPLEX Qty: 22 3RF Dose Instruction: APPLY 4-6 TIMES DAILY FOR TWO WEEKS, THEN 1-2 TIMES PER DAY FOREVER Patient Comments: TO NOSE Rx Instructions: APPLY 4-6 TIMES DAILY FOR TWO WEEKS, THEN 1-2 TIMES PER DAY FOREVER pantoprazole 20 mg tablet,delayed release (DR/EC) See Rx Instructions .ROUTE .COMPLEX Qty: 90 3RF Dose Instruction: TAKE 1 TABLET BY MOUTH IN THE MORNING Rx Instructions: TAKE 1 TABLET BY MOUTH IN THE MORNING metformin 1,000 mg tablet See Rx Instructions .ROUTE .COMPLEX Qty: 180 3RF Dose Instruction: Take 1 tablet by mouth twice daily Rx Instructions: Take 1 tablet by mouth twice daily rosuvastatin 40 mg tablet 40 mg PO DAILY Qty: 90 3RF levothyroxine 100 mcg capsule 100 mcg PO DAILY Qty: 90 1RF Patient Comments: QAM magnesium citrate Solution 300 ml PO DAILY PRN (Reason: constipation) Qty: 296 0RF tamsulosin 0.4 mg capsule See Rx Instructions .ROUTE .COMPLEX Qty: 90 3RF Dose Instruction: Take 1 capsule by mouth once daily Rx Instructions: Take 1 capsule by mouth once daily ropinirole 0.25 mg tablet See Rx Instructions .ROUTE .COMPLEX Qty: 180 0RF Dose Instruction: Take 1 tablet by mouth twice daily Rx Instructions: Take 1 tablet by mouth twice daily Ozempic 0.25 mg or 0.5 mg (2 mg/3 mL) pen injector 0.5 mg subcut WEEKLY Qty: 3 3RF potassium chloride 10 mEq tablet,ER particles/crystals See Rx Instructions .ROUTE .COMPLEX Qty: 30 0RF Dose Instruction: Take 1 tablet by mouth once daily Rx Instructions: Take 1 tablet by mouth once daily buspirone 10 mg tablet 10 mg PO BID Qty: 60 1RF hydrocodone-acetaminophen 7.5-325 mg tablet 1 tablet PO QHS PRN (Reason: pain) Qty: 30 0RF trazodone 150 mg tablet See Rx Instructions .ROUTE .COMPLEX Qty: 90 3RF Dose Instruction: TAKE 1 TABLET BY MOUTH AT BEDTIME NEEDED FOR SLEEP Rx Instructions: TAKE 1 TABLET BY MOUTH AT BEDTIME NEEDED FOR SLEEP Follow-up/Referrals: UNKNOWN,DOCTOR [Primary Care Provider] - Time of Disposition: 15:55 Quality [place] Coma Scale Eyes: Open Verbal: Oriented and Alert Motor: Follows Commands Raciel Coma Total Score: 15
[2024-11-16 15:25] LABS: EDCOVIDSCREEN Negative (Negative); EDINFLUASCREEN Negative (Negative); EDINFLUBSCREEN Negative (Negative)
--- NOTE | 2024-11-16 15:30 | PC.NURSE ---
[facility] HERE FOR TRANSPORT
--- OUTSIDE RECORDS SUMMARY | 2024-11-16 15:35 | XMS_ITS | Encounter Summary ---
Author Organization [facility] Address [address] [place] [address] Phone Care Team Providers Care Assembler Ping Pong Table Name Role Phone Akhil Taylor MD Primary Care Provider [phone] Reason for Visit * Reason Comments Medication Refill Encounter Details Date Type Department Care Team (Late st Contact Info) Description 09/03/2022 Refill [facility] - Primary Care - [address] [place] [address] Candie Johns APRN, ZACHARY [address] [place] [address] Medication Refill Social History Tobacco Use Types Packs/Day Years Used Date Smoking Tobacco: Never Smokeless Tobacco: Never Alcohol Use Standard Drinks/Week Comments No 0 (1 standard drink = 0.6 oz pur e alcohol) PHQ-2 Answer Date Recorded Total Score - Questions 1-9 0 05/13 Education Answer Date Recorded What is the highest level of school you have completed or the highest degree you have received? 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 Not on file Not on file Not on file documented as of this encounter Miscellaneous Notes * Telephone Encounter - Sissy García RN - 09/03/2022 10:25 AM CST metFORMIN (GLUCOPHAGE) 1000 MG Tablet 180 Tablet 0 08/28/2022 [employer] documented in this encounter Plan of Treatment Not on file documented as of this encounter Visit Diagnoses Not on filedocumented in this encounter Additional Health Concerns Assessment Noted Time PHQ-9 Depression Total Score: 0 06/07/20 21 1:00 PM CDT documented as of this encounter Care Teams Assembler Ping Pong Table Relationship Specialty Start Date End Date Akhil Taylor MD [address] [place] [address] PCP - General Family Medicine 08/28/22 documented as of this encounter
--- OUTSIDE RECORDS SUMMARY | 2024-11-16 15:35 | XMS_ITS | Encounter Summary ---
Author Organization [facility] Address [address] [place] [address] Phone Care Team Providers Care Informatica Mdm Developer Name Role Phone Candie Johns APRN, CNP Primary Care P rovider Akhil Taylor MD Primary Care Provider [phone] Reason for Visit * Reason Comments Medication Refill Encounter Details Date Type Department Care Team (Late st Contact Info) Description 11/30/2020 Refill [facility] - Primary Care - [address] [place] [address] Candie Johns APRN, CNP [address] [place] [address] Medication Refill Social History Tobacco Use Types Packs/Day Years Used Date Smoking Tobacco: Never Smokeless Tobacco: Never Alcohol Use Standard Drinks/Week Comments No 0 (1 standard drink = 0.6 oz pur e alcohol) PHQ-2 Answer Date Recorded Total Score - Questions 1-9 0 02/2020 Education Answer Date Recorded What is the [...] file Not on file Not on file COVID-19 Exposure Response Date Recorded In the last month, have you been in contact with someone who was confirmed or suspected to have Coronavirus / COVID-19? 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 documented as of this encounter Plan of Treatment Not on file documented as of this encounter Visit Diagnoses Not on filedocumented in this encounter Additional Health Concerns Assessment Noted Time PHQ-9 Depression Total Score: 0 05/16/20 20 1:00 PM CDT documented as of this encounter Care Teams Informatica Mdm Developer Relationship Specialty Start Date End Date Candie Johns APRN, PUNCH PRESS FEEDER [address] [place] [address] PCP - General Advanced Practice Nurse 05/16/2008/27 Akhil Taylor MD [address] [place] [address] PCP - General Family Medicine 08/28/22 documented as of this encounter
--- OUTSIDE RECORDS SUMMARY | 2024-11-16 15:35 | XMS_ITS | Encounter Summary ---
Author Organization [facility] Address [address] [place] [address] Phone Care Team Providers Care Enterprise Applications Manager Name Role Phone Akhil Taylor MD Primary Care Provider [phone] Reason for Visit * Reason Comments Medication Refill Encounter Details Date Type Department Care Team (Late st Contact Info) Description 10/20/2022 Refill [facility] - Primary Care - [address] [place] [address] Candie Johns APRN, ZACHARY [address] [place] [address] Medication Refill Social History Tobacco [...] encounter Miscellaneous Notes * Telephone Encounter - Anila Griffith, RN - 10/20/2022 10:46 AM CST Patient no longer under provider/office care. LBENZENE CONVERTER HELPER documented in this encounter Plan of Treatment Not on file documented as of this encounter Visit Diagnoses Diagnosis Pure hypercholesterolemia Hyperlipidemia associated with type 2 diabetes mellitus (HCC) documented in this encounter Additional Health Concerns Assessment Noted Time PHQ-9 Depression Total Score: 0 06/07/20 21 1:00 PM CDT documented as of this encounter Care Teams Enterprise Applications Manager Relationship Specialty Start Date End Date Akhil Taylor MD [address] [place] [address] PCP - General Family Medicine 08/28/22 documented as of this encounter
--- OUTSIDE RECORDS SUMMARY | 2024-11-16 15:35 | XMS_ITS | Encounter Summary ---
Author Organization [facility] Address [address] [place] [address] Phone Care Team Providers Care Solid Waste Technician Name Role Phone Akhil Taylor MD Primary Care Provider [phone] Reason for Visit * Reason Comments Medication Refill Encounter Details Date Type Department Care Team (Late st Contact Info) Description 09/03/2022 Refill [facility] - Primary Care - [address] [place] [address] Candie Johns APRN, ZACHARY [address] [place] [address] Medication Refill Social History Tobacco [...] Encounter - Sissy García RN - 09/03/2022 12:57 PM CST Pt should contact pcp first. ZINE DESIGNER documented in this encounter Plan of Treatment Not on file documented as of this encounter Visit Diagnoses Not on filedocumented in this encounter Additional Health Concerns Assessment Noted Time PHQ-9 Depression Total Score: 0 06/07/20 21 1:00 PM CDT documented as of this encounter Care Teams Solid Waste Technician Relationship Specialty Start Date End Date Akhil Taylro MD [address] [place] [address] PCP - General Family Medicine 08/28/22 documented as of this encounter
--- OUTSIDE RECORDS SUMMARY | 2024-11-16 15:35 | XMS_ITS | Encounter Summary ---
Author Organization [facility] Address [address] [place] [address] Phone Care Team Providers Care Knock Out Hand Name Role Phone Candie Johns APRN, CNP Primary Care P rovider Akhil Taylor MD Primary Care Provider [phone] Reason for Visit * Reason Comments Medication Refill Encounter Details Date Type Department Care Team (Late st Contact Info) Description 11/24/2020 Refill [facility] - Primary Care - [address] [place] [address] Candie Johns APRN, CNP [address] [place] [address] Medication Refill Social History Tobacco [...] encounter Miscellaneous Notes * Telephone Encounter - Candie Johns APN, CNP - 11/26/2020 12:11 PM CST duplicate ERING MACHINE OPERATOR * Telephone Encounter - Nasreen Mello RN - 11/26/2020 11:58 AM TEMPERING MACHINE OPERATOR Medication failed the protocol, provider to review and approve the medication order if appropriate. Requested Prescriptions Pending Prescriptions Disp Refills busPIRone (BUSPAR) 10 MG Tablet [Pharmacy Med Name: busPIRone HCl 10 MG Oral Tablet] 180 Tablet 0 Sig: Take 1 tablet by mouth twice daily Not Delegated - Psychiatry: Anxiolytics/Hypnotics Failed - 11/24/2020 9:41 AM Failed - Valid encounter within last 6 months Past Office Visits Recent Outpatient Visits 6 months ago Essential hypertension [facility] Candie Johns APN, CNP 2 years ago Anxiety [facility] Alicea MD 2 years ago Essential hypertension [facility] R[facility] Alicea MD 2 years ago Bronchitis [facility] Alice[facility] MD 2 years ago Essential hypertension [facility] Alicea MD Upcoming Appointments Future Appointments In 4 days Candie Johns APN, CNP [facility] - Recent and Past Visits Recent Visits Date Type Provider Dept 05/16/20 Office Visit Candie Johns APN, CNP [facility] Showing recent visits within past 460 days with a meds authorizing provider and meeting all other requirements Future Appointments Date Type Provider Dept 11/30/20 Appointment Candie Johns APN, CNP [facility] Showing future appointments within next 90 days with a meds authorizing provider and meeting all other requirements Failed - This refill cannot be delegated ERING MACHINE OPERATOR documented in this encounter Plan of Treatment Not on file documented as of this encounter Visit Diagnoses Not on filedocumented in this encounter Additional Health Concerns Assessment Noted Time PHQ-9 Depression Total Score: 0 05/16/20 20 1:00 PM CDT documented as of this encounter Care Teams Knock Out Hand Relationship Specialty Start Date End Date Candie Johns APRN, SOCIAL SCIENCES INSTRUCTOR [address] [place] [address] PCP - General Advanced Practice Nurse 05/16/2008/27 Akhil Taylor MD [address] [place] [address] PCP - General Family Medicine 08/28/22 documented as of this encounter
--- OUTSIDE RECORDS SUMMARY | 2024-11-16 15:35 | XMS_ITS | Encounter Summary ---
Author Organization [facility] Address [address] [place] [address] Phone Care Team Providers Care Hardware Technician Name Role Phone Akhil Taylor MD Primary Care Provider [phone] Reason for Visit * Reason Comments Medication Refill Encounter Details Date Type Department Care Team (Late st Contact Info) Description 10/25/2022 Refill [facility] - Primary Care - [address] [place] [address] Candie Johns APRN, ZACHARY [address] [place] [address] Medication Refill Social History Tobacco [...] on file documented as of this encounter Plan of Treatment Not on file documented as of this encounter Visit Diagnoses Diagnosis Pure hypercholesterolemia Hyperlipidemia associated with type 2 diabetes mellitus (HCC) documented in this encounter Additional Health Concerns Assessment Noted Time PHQ-9 Depression Total Score: 0 06/07/20 21 1:00 PM CDT documented as of this encounter Care Teams Hardware Technician Relationship Specialty Start Date End Date Akhil Taylor MD [address] [place] [address] PCP - General Family Medicine 08/28/22 documented as of this encounter
--- OUTSIDE RECORDS SUMMARY | 2024-11-16 15:35 | XMS_ITS | Continuity of Care Document ---
Author Organization [facility] Address [address] [place] [address] Phone Care Team Providers Care Cross Tie Tram Loader Name Role Phone Teodoro Kirk MD Unavailable [...] Providers Copied on Encounter [facility], [address], [facility], tel:[phone] [facility] No Information [address]. [address] [place], [id number] . tel: [phone] [facility], [address] [facility] [address] [place] [address], [facility], tel:[phone] [facility] No Information [address] Valerio. [address] [place], [place], [id number] . tel: [phone] OFFICE/OUTPA TIENT VISIT EST [facility], [address] [facility] [address] [place] [address], [facility], tel:[phone] [facility] (degenerative joint disease), lumbarLow back painAcquired spondylolisthesis [address]. [address], [place], [place], [id number] . tel: [phone] Referring Provider: Clinton Parsons, [address] [facility] [address], [place], [address] . tel:[phone] [facility], [address] [facility] [address], [place], [address], tel:[phone] [facility] Thoracic or lumbosacral neuritis or radiculitis [address] Te[address]. [address], [place], [place], [id number] . tel: [phone] Family History Family Member Type Diagnosis Age At Onset No Information Payers Payer name Insurance type Covered libertarian ID Authoriza tion(s) No Information Social History [...]
--- OUTSIDE RECORDS SUMMARY | 2024-11-16 15:35 | XMS_ITS | Encounter Summary ---
Author Organization [facility] Address [address] [place] [address] Phone Care Team Providers Care Nuclear Physician Name Role Phone Candie Johns APRN, CNP Primary Care P rovider Akhil Taylor MD Primary Care Provider [phone] Reason for Visit * Reason Comments Medication Refill Encounter Details Date Type Department Care Team (Late st Contact Info) Description 11/22/2020 Refill [facility] - Primary Care - [address] [place] [address] Candie Johns APRN, CNP [address] [place] [address] Medication Refill Social History Tobacco [...] Encounter - Candie Johns APN, CNP - 11/22/2020 3:15 PM CST duplicate MING MACHINE OPERATOR * Telephone Encounter - Nasreen Mello RN - 11/22/2020 3:01 PM STEAMING MACHINE OPERATOR Medication failed the protocol, provider to review and approve the medication order if appropriate. Requested Prescriptions Pending Prescriptions Disp Refills busPIRone (BUSPAR) 10 MG Tablet [Pharmacy Med Name: busPIRone HCl 10 MG Oral Tablet] 180 Tablet 0 Sig: Take 1 tablet by mouth twice daily Not Delegated - Psychiatry: Anxiolytics/Hypnotics Failed - 11/22/2020 2:59 PM Failed - Valid encounter within last 6 months Past Office Visits Recent Outpatient Visits 6 months ago Essential hypertension [facility] Candie Johns APN, CNP 2 years ago Anxiety [facility] - Rl Alicea MD 2 years ago Essential hypertension [facility] Rl Alicea MD 2 years ago Bronchitis [facility] - Rl Alicea MD 2 years ago Essential hypertension [facility] Rl Alicea MD Upcoming Appointments Future Appointments In 1 week Candie Johns APN, CNP [facility] - Recent and Past Visits Recent Visits Date Type Provider Dept 05/16/20 Office Visit Candie Johns APN, CNP [facility] Showing recent visits within past 460 days with a meds authorizing provider and meeting all other requirements Future Appointments Date Type Provider Dept 11/30/20 Appointment Candie Johns APN, CNP [facility] Showing future appointments within next 90 days with a meds authorizing provider and meeting all other requirements Failed - This refill cannot be delegated MING MACHINE OPERATOR documented in this encounter Plan of Treatment Not on file documented as of this encounter Visit Diagnoses Not on filedocumented in this encounter Additional Health Concerns Assessment Noted Time PHQ-9 Depression Total Score: 0 05/16/20 20 1:00 PM CDT documented as of this encounter Care Teams Nuclear Physician Relationship Specialty Start Date End Date Candie Johns APRN, GLUE BONE CRUSHER [address] [place] [address] PCP - General Advanced Practice Nurse 05/16/2008/27 Akhil Taylor MD [address] [place] [address] PCP - General Family Medicine 08/28/22 documented as of this encounter
--- OUTSIDE RECORDS SUMMARY | 2024-11-16 15:35 | XMS_ITS | Encounter Summary ---
Author Organization [facility] Address [address] [place] [address] Phone Care Team Providers Care Instrument Person Name Role Phone Akhil Taylor MD Primary Care Provider [phone] Reason for Visit * Reason Comments Medication Refill Encounter Details Date Type Department Care Team (Late st Contact Info) Description 01/01/2023 Refill [facility] - Primary Care - [address] [place] [address] Candie Johns APRN, ZACHARY [address] [place] [address] Medication Refill Social History Tobacco [...] encounter Miscellaneous Notes * Telephone Encounter - Nasreen Mello RN - 01/01/2023 10:24 AM CDT Patient no longer has a PCP in this office. documented in this encounter Plan of Treatment Not on file documented as of this encounter Visit Diagnoses Not on filedocumented in this encounter Additional Health Concerns Assessment Noted Time PHQ-9 Depression Total Score: 0 06/07/20 21 1:00 PM CDT documented as of this encounter Care Teams Instrument Person Relationship Specialty Start Date End Date Akhil Taylor MD [address] [place] [address] PCP - General Family Medicine 08/28/22 documented as of this encounter
--- OUTSIDE RECORDS SUMMARY | 2024-11-16 15:36 | XMS_ITS | Encounter Summary ---
Author Organization [facility] Address [address] [place] [address] Phone Care Team Providers Care Mens Locker Room Attendant Name Role Phone Candie Johns APRN, CNP Primary Care P rovider Akhil Taylor MD Primary Care Provider [phone] Reason for Visit * Reason Comments Medication Refill Encounter Details Date Type Department Care Team (Late st Contact Info) Description 03/31/2021 Refill [facility] - Primary Care - [address] [place] [address] Candie Johns APRN, CNP [address] [place] [address] Medication Refill Social History Tobacco [...] documented as of this encounter Care Teams Mens Locker Room Attendant Relationship Specialty Start Date End Date Candie Johns APRN, TOBACCO EDUCATOR [address] [place] [address] PCP - General Advanced Practice Nurse 05/16/2008/27 Akhil Taylor MD [address] [place] [address] PCP - General Family Medicine 08/28/22 documented as of this encounter
--- OUTSIDE RECORDS SUMMARY | 2024-11-16 15:36 | XMS_ITS | Encounter Summary ---
Author Organization [facility] Address [address] [place] [address] Phone Care Team Providers Care Municipal [address] Magistrate Name Role Phone Candie Johns APRN, CNP Primary Care P rovider Akhil Taylor MD Primary Care Provider [phone] Reason for Visit * Reason Comments Medication Refill Encounter Details Date Type Department Care Team (Late st Contact Info) Description 01/19/2021 Refill [facility] - Primary Care - [address] [place] [address] Candie Johns APRN, CNP [address] [place] [address] Medication Refill Social History Tobacco [...] Telephone Encounter - Sissy García RN - 01/21/2021 9:48 AM CDT Medication failed the protocol, provider to review and approve the medication order if appropriate. Requested Prescriptions Pending Prescriptions Disp Refills busPIRone (BUSPAR) 10 MG Tablet [Pharmacy Med Name: busPIRone HCl 10 MG Oral Tablet] 180 Tablet 0 Sig: Take 1 tablet by mouth twice daily Not Delegated - Psychiatry: Anxiolytics/Hypnotics Failed - 01/21/2021 8:54 AM Failed - This refill cannot be delegated Passed - Valid encounter within last 6 months Past Office Visits Recent Outpatient Visits 1 month ago Acquired hypothyroidism [facility] Candie Johns APN, CNP 8 months ago Essential hypertension [facility] Candie Johns APN, CNP 2 years ago Anxiety [facility] Rl Alicea MD 2 years ago Essential hypertension [facility] Rl Alicea MD 2 years ago Bronchitis [facility] Rl Shetty MD Upcoming Appointments Future Appointments In 4 months Candie Johns APN SPIRAL BINDER [facility] - Recent and Past Visits Recent Visits Date Type Provider Dept 11/30/20 Office Visit Candie Johns APN, CNP [facility] 05/16/20 Office Visit Candie Johns APN, CNP [facility] Showing recent visits within past 460 days with a meds authorizing provider and meeting all other requirements Future Appointments No visits were found meeting these conditions. Showing future appointments within next 90 days with a meds authorizing provider and meeting all other requirements documented in this encounter Plan of Treatment Not on file documented as of this encounter Visit Diagnoses Diagnosis Anxiety and depression Dysthymic disorder documented in this encounter Additional Health Concerns Assessment Noted Time PHQ-9 Depression Total Score: 0 05/16/20 20 1:00 PM CDT documented as of this encounter Care Teams [address] Magistrate Relationship Specialty Start Date End Date Candie Johns APRN, ZACHARY [address] [place] [address] PCP - General Advanced Practice Nurse 05/16/2008/27 Akhil Taylor MD [address] [place] [address] [place] [address] PCP - General Family Medicine 08/28/22 documented as of this encounter
--- OUTSIDE RECORDS SUMMARY | 2024-11-16 15:36 | XMS_ITS | Encounter Summary ---
Author Organization [facility] Address [address] [place] [address] Phone Care Team Providers Care Collision Repairer Name Role Phone Akhil Taylor MD Primary Care Provider [phone] Reason for Visit * Reason Comments Medication Refill Encounter Details Date Type Department Care Team (Late st Contact Info) Description 10/28/2024 Refill [facility] [address] [place] [id number] Mundo Agosto, SAP ARCHITECT, FIREBRICK LAYER HELPER [address] [place] [address] Medication Refill Social History Tobacco Use Types [...] documented as of this encounter Care Teams Collision Repairer Relationship Specialty Start Date End Date Akhil Taylor MD [address] [place] [address] PCP - General Family Medicine 08/28/22 documented as of this encounter
--- OUTSIDE RECORDS SUMMARY | 2024-11-16 15:36 | XMS_ITS | Encounter Summary ---
Author Organization [facility] Address [address] [place] [address] Phone Care Team Providers Care Veterans Employment Representative Name Role Phone Candie Johns APRN, CNP Primary Care P rovider Akhil Taylor MD Primary Care Provider [phone] Reason for Visit * Reason Comments Medication Refill Encounter Details Date Type Department Care Team (Late st Contact Info) Description 05/08/2021 Refill [facility] - Primary Care - [address] [place] [address] Candie Johns APRN, CNP [address] [place] [address] Medication Refill Social History Tobacco [...] as of this encounter Visit Diagnoses Diagnosis Type 2 diabetes mellitus without complication, without long-term current use of insulin (HCC) documented in this encounter Additional Health Concerns Assessment Noted Time PHQ-9 Depression Total Score: 0 05/16/20 20 1:00 PM CDT documented as of this encounter Care Teams Veterans Employment Representative Relationship Specialty Start Date End Date Candie Johns, BIOMASS PRODUCTION MANAGER, C ENGINEER [address] [place] [address] PCP - General Advanced Practice Nurse 05/16/2008/27 Akhil Taylor MD [address] [place] [address] PCP - General Family Medicine 08/28/22 documented as of this encounter
--- OUTSIDE RECORDS SUMMARY | 2024-11-16 15:36 | XMS_ITS | Encounter Summary ---
Author Organization [facility] Address [address] [place] [address] Phone Care Team Providers Care Stem Maker Name Role Phone Candie Johns APRN, CNP Primary Care P rovider Akhil Taylor MD Primary Care Provider [phone] Reason for Visit * Reason Comments Medication Refill Encounter Details Date Type Department Care Team (Late st Contact Info) Description 03/08/2022 Refill 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 [address] PCP - General Advanced Practice Nurse 05/16/2008/27 Akhil Taylor MD [address] [place] [address] PCP - General Family Medicine 08/28/22 documented as of this encounter
--- OUTSIDE RECORDS SUMMARY | 2024-11-16 15:36 | XMS_ITS | Referral Summary ---
Author Organization [facility] [address] Address [address] [place] [address] Phone Care Team Providers Care Pearl Glue Drier Name Role Phone Gil Dow MD Unavailable [phone] Kerri Zuniga NP Primary Care Provider [phone] Encounters Date Type Department Care Team Description 11/16/2024 3:32 PM COMMUNITY SERVICE OFFICER COORDINATOR - Present Emergency [facility] Emergency Department [address] [place] [id number] 10/18/2024 Telephone [place] [employer] Technical Writer at [address] [place] [address] [phone] Austin Perry MA 08/31/2024 Orders Only [address] [id number] Mich Krishnan DO 08/31/2024 9:36 AM COMMUNITY SERVICE OFFICER COORDINATOR Anesthesia Event [address] [address] Nia Milligan MD 08/31/2024 8:30 AM COMMUNITY SERVICE OFFICER COORDINATOR - 08/31/2024 9:00 AM COMMUNITY SERVICE OFFICER COORDINATOR Surgery [address] [address] Mich Krishnan, COLON REMOVAL SNARE 08/31/2024 1:15 PM COMMUNITY SERVICE OFFICER COORDINATOR Ancillary Procedure [place] [employer] [id number] [address] Cardiomyopathy, ischemic; ICD (implantable cardioverter-defibr illator) in place 08/31/2024 7:26 AM COMMUNITY SERVICE OFFICER COORDINATOR - 08/31/2024 11:37 AM COMMUNITY SERVICE OFFICER COORDINATOR Hospital Encounter [facility] [address] [place] [address] Mich Krishnan, Positive colorectal cancer screening using Cologuard test; Encounter for screening colonoscopy Discharge Disposition: Discharge to home or self care 08/30/2024 Orders Only [place] [employer] [id number] [phone] Malec, Sissy Cardiomyopathy, ischemic (Primary Dx); ICD (implantable cardioverter-defibr illator) in place; 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 (HCC) from Last 3 Months Allergies Active Allergy Reactions Criticality Noted Date Comments Losartan Swelling High 02/23/2019 Medications rosuvastatin (CRESTOR) 40 mg tablet Take 1 tablet (40 mg total) by mouth daily Active metFORMIN (GLUCOPHAGE) 1,000 mg tabletIndication s:type 2 diabetes mellitus Take 1 tablet (1,000 mg total) by mouth 2 (two) times a day 60 tablet 5 0 Active mupirocin (BACTROBAN) 2 % ointmentIndicati ons:Acute recurrent maxillary sinusitis APPLY OINTMENT TOPICALLY TO AFFECTED AREA TWICE DAILY FOR 14 DAYS 22 g 2 Active tamsulosin (FLOMAX) 0.4 mg extended release capsule TAKE 1 CAPSULE BY MOUTH EVERY DAY AT BEDTIME [address] (PROTONIX) 20 mg EC tablet Take 1 tablet (20 mg total) by mouth daily Active sildenafiL (VIAGRA) 100 mg tablet Take 1 tablet (100 mg total) by mouth daily as needed for erectile dysfunction Active rOPINIRole (REQUIP) 0.25 mg tablet Take 1 tablet (0.25 mg total) by mouth 2 (two) times a day Active furosemide (LASIX) 20 mg tablet Take 1 tablet (20 mg total) by mouth as needed Active LORazepam (ATIVAN) 0.5 mg tablet Take 1 tablet (0.5 mg total) by mouth every 6 (six) hours as needed for anxiety 2 3 Active solifenacin (VESIcare) 10 mg tablet Take 1 tablet (10 mg total) by mouth daily Active cetirizine (ZyrTEC) 10 mg tablet Take 1 tablet (10 mg total) by mouth daily Active traZODone (DESYREL) 150 mg tablet Take 1 tablet (150 mg total) by mouth nightly as needed for sleep 4 Active levothyroxine (SYNTHROID) 100 mcg tablet Take 1 tablet (100 mcg total) by mouth daily 4 Active carvediloL (COREG) 6.25 mg tablet Take 1 tablet (6.25 mg total) by mouth 2 (two) times a day with meals 60 tablet 11 4 01/11/20 25 Active clopidogreL (PLAVIX) 75 mg tabletIndication s:Coronary artery disease with angina pectoris, unspecified vessel or lesion type, unspecified whether quileute or transplanted heart (HCC) Take 1 tablet by mouth once daily 90 tablet 3 4 Active Mounjaro 12.5 mg/0.5 mL pen injector Inject 12.5 mg as directed every 2 (two) weeks As needed 4 Active spironolactone (ALDACTONE) 25 mg tablet Take 1/2 (one-half) tablet by mouth once daily 45 tablet 3 4 Active metOLazone (ZAROXOLYN) 2.5 mg tablet Take 1 tablet (2.5 mg total) by mouth every other day 60 tablet 4 Active Active Problems Problem Noted Date Diagnosed Date Positive colorectal cancer screening using Colog uard test 08/11/2024 Encounter for screening colonoscopy 08/11/2024 ICD (implantable cardioverte r-defibrillator), single, in situ 03/02/2024 Overview (03/09/2024): Status post Biotronik Acticor 7 VR-T DX single-chamber ICD on 02 Mar 2024 (RL). Assessment & Plan (03/09/2024 2:35 PM CDT): No shocks since ICD placed last week. No fever, wound drainage or significant incisional pain. He knows to follow up with Dr. Benjamin on 11 April 2024 as scheduled. Elevated prostate specific antigen (PSA) 024 Elevated PSA 10/23/2023 Coronary artery disease with angina pectoris Deviated nasal septum 12/24/2020 Assessment & Plan (04/07/2022 2:55 PM CDT): Continue nasal saline and Flonase and Astelin twice daily Cetirizine 10 mg (Zyrtec) daily Right sided septal spur per previous CT Sinus Assessment & Plan (12/25/2020 7:46 PM CDT): Septoplasty and bilateral inferior turbinate reduction possible 23 hour Observation Risks and complications include anesthesia, bleeding, infection, injury to surrounding structures including brain with csf leak, eyes with vision changes, nasal mucosa, atrophic rhinitis, septal hematoma, septal perforation, benign versus malignant pathology, no guarantee that sense of smell would be exactly the same, need for further surgery. Discussed at length that this Will not cure allergies or sleep apnea. He agreed to call Billing and discuss this further regarding out of pocket prior to scheduling this. Cellulitis of nasal tip 10/19/2020 Assessment & Plan (10/19/2020 1:38 PM COMMUNITY SERVICE OFFICER COORDINATOR): Talk to Primary Doctor regarding the Hyperthyroidism Bactroban apply pea-size amount into each nostril with a cotton tipped applicator, being carefully just to tuck it into each nostril, then massage soft portion of the outer nose to massage the ointment around inside the nose twice daily for 2 weeks May continue nasal saline Continue Astelin after nasal saline twice daily then apply Bactroban ointment Doxycycline 100 mg twice daily for 21 days Hyperthyroidism 10/19/2020 Assessment & Plan (10/19/2020 1:38 PM COMMUNITY SERVICE OFFICER COORDINATOR): Talk to Primary Doctor regarding the Hyperthyroidism Allergic rhinitis 09/18/2020 Assessment & Plan (04/07/2022 2:57 PM CDT): Continue nasal saline and Flonase and Astelin twice daily may use [place] gel or Aquaphor apply pea-size amount into each nostril with a cotton tipped applicator, being carefully just to tuck it into each nostril, then massage soft portion of the outer nose to massage the ointment around inside the nose. Cetirizine 10 mg (Zyrtec) daily Assessment & Plan (12/20/2021 1:51 PM COMMUNITY SERVICE OFFICER COORDINATOR): Nasal saline spray (Simply saline, [employer]edies, [place], [place]) 2 second sprays or 2 squeezes into each nostril while looking down over the sink, do not need to sniff in. Followed Astelin (azelastine) 2 sprays into each nostril while looking down over the sink, do not sniff in or blow nose after use for at least 30 minutes twice daily Restart Humidifier Augmentin twice daily with a meal for 10 days Assessment & Plan (12/25/2020 7:45 PM CDT): Continue Nasal saline, and Astelin Assessment & Plan (11/27/2020 8:49 PM COMMUNITY SERVICE OFFICER COORDINATOR): Continue nasal saline followed by Astelin (azelastine) 2 sprays into each nostril while looking down over the sink, do not sniff in or blow nose after use for at least 30 minutes twice daily Assessment & Plan (09/18/2020 10:44 AM COMMUNITY SERVICE OFFICER COORDINATOR): Continue nasal saline and Astelin Continue Cetirizine 10 mg daily Increase Pepcid (famotidine) to 20 mg twice daily Blood allergy testing - call with results Cardiomyopathy, ischemic 08/14/2020 Mixed hyperlipidemia 08/14/2020 Acute recurrent sinusitis 04/16/2020 Assessment & Plan (03/03/2022 11:07 AM CDT): Continue Nasal saline followed by Flonase and Astelin twice daily Start Cefdinir for 21 days twice daily with a meal Assessment & Plan (12/20/2021 1:51 PM COMMUNITY SERVICE OFFICER COORDINATOR): Nasal saline spray (Simply saline, [employer], [place], [place]) 2 second sprays or 2 squeezes into each nostril while looking down over the sink, do not need to sniff in. Followed Astelin (azelastine) 2 sprays into each nostril while looking down over the sink, do not sniff in or blow nose after use for at least 30 minutes twice daily Restart Humidifier Augmentin twice daily with a meal for 10 days Assessment & Plan (10/19/2020 1:38 PM COMMUNITY SERVICE OFFICER COORDINATOR): Bactroban apply pea-size amount into each nostril with a cotton tipped applicator, being carefully just to tuck it into each nostril, then massage soft portion of the outer nose to massage the ointment around inside the nose twice daily for 2 weeks May continue nasal saline Continue Astelin after nasal saline twice daily then apply Bactroban ointment Doxycycline 100 mg twice daily for 21 days Assessment & Plan (08/06/2020 3:56 PM CDT): Stop Flonase Start Nasal saline spray (Simply saline, [employer], [place], [place]) 2 second sprays or 2 squeezes into each nostril while looking down over the sink, do not need to sniff in followed by Astelin 2 sprays into each nostril while looking down over the sink, do not sniff in or blow nose after use for at least 30 minutes twice daily Continue increased humidity Augmentin with a meal twice daily Continue cetirizine 10 mg daily Assessment & Plan (04/16/2020 10:28 AM CDT): Nasal saline spray (Simply saline, [employer], [place], [place]) 2 second sprays or 2 squeezes into each nostril while looking down over the sink, do not need to sniff in. Followed by Flonase 2 sprays into each nostril while looking down over the sink, do not sniff in or blow nose after use for at least 30 minutes twice daily Augmentin with a meal twice daily for 21 days Call if no improvement in 3-4 weeks Slowly wean off Afrin or Neosinephrine and other decongestants Continue CPAP Acute bacterial sinusitis 10/12/2019 Assessment & Plan (11/20/2019 2:12 PM COMMUNITY SERVICE OFFICER COORDINATOR): He came down with a respiratory infection one or two months ago. He can't get over it. He has sinus congestion and drainage. He is coughing and occasionally bringing up dark yellow to green phlegm. He has not run a fever. It sounds like he has developed a bacterial sinusitis. We will put him on some Augmentin, risks of medication discussed. He should call if he is not getting better. Foreign body sensation in throat 07/13/2019 Cough 06/07/2019 Assessment & Plan (06/10/2019 4:02 PM CDT): He has had a cough for the past several days or more. There may be a low-grade fever. He is coughing up yellow phlegm. Exam is fairly unremarkable with clear lungs and normal oxygen saturation. However, in view of his underlying chronic conditions as well as some nasal/sinus symptoms, we will put him on Augmentin for possible sinusitis/bronchitis/early community-acquired pneumonia. We will give him a cough suppressant for use at night because the cough is wearing him out and keeping him from sleeping. Risks of medication discussed. Return early next week if not improving, or if getting worse, go to the emergency room for imaging and IV antibiotics. Low testosterone 05/21/2019 Overview (05/21/2019): Previously took replacement when seeing Dr. Holley. Assessment & Plan (06/10/2019 4:04 PM CDT): He had questions about testosterone replacement. We have recently communicated by phone about this issue and need to schedule some follow-up testing if he wants to consider replacement therapy. Testing is deferred until he has recovered from his acute respiratory illness. Assessment & Plan (05/30/2019 3:46 PM CDT): He has a lot of fatigue. He previously took testosterone replacement many years ago when he was seeing a former PCP. Follow-up testosterone level does show that it is low. We discussed the pros and cons of testosterone replacement. We will need additional testing before considering a trial. This will be arranged between now and his next visit in three months at which time we will again discuss testosterone replacement therapy and whether the potential benefits outweigh the risks. Gallstones 03/21/2019 Overview (03/22/2019): Noted incidentally on CT abdomen and pelvis done at [facility] for iron deficiency anemia. Gastritis 03/03/2019 Overview (11/04/2019): See EGD report, [facility]. Also had a gastric polyp. Started on Pepcid. Assessment & Plan (09/18/2020 12:53 PM COMMUNITY SERVICE OFFICER COORDINATOR): Continue nasal saline and Astelin Continue Cetirizine 10 mg daily Increase Pepcid (famotidine) to 20 mg twice daily Blood allergy testing - call with results Continue good hydration ED (erectile dysfunction) 03/02/2019 Microcytic anemia 02/17/2019 Overview (11/11/2019): Due to iron deficiency, followed by Dr. Mckenzie. Assessment & Plan (05/30/2019 3:47 PM CDT): He is being followed at [facility] by Dr. Mckenzie. He gets iron infusions. Iron profile recently shows some equivocal abnormalities for iron deficiency. He will keep his follow ups with Dr. Mckenzie. Assessment & Plan (03/02/2019 2:04 PM CDT): He was recently found to have microcytic anemia. Iron studies show significant iron deficiency. Upper and lower endoscopies are planned this week. Stool is guaiac negative on exam today. Return in two weeks to review again. Resume iron once endoscopies have been completed. We may need to look for malabsorption as a cause depending on results of endoscopy. Angioedema 02/08/2019 Overview (03/02/2019): Tongue, ER doctor recommended GI follow up. Iron deficiency anemia 02/08/2019 Assessment & Plan (11/20/2019 2:13 PM COMMUNITY SERVICE OFFICER COORDINATOR): He is no longer seeing Dr. Mckenzie or getting iron infusions because he says everything is back to normal. Last values I have show a mild anemia and elevated iron and transferrin saturation levels. We will check a follow-up CBC before his next visit. Assessment & Plan (03/26/2019 3:36 PM CDT): He is on iron replacement. He had upper and lower endoscopies which were by and large negative. He had some gastritis and a gastric polyp. A CT of the abdomen and pelvis is planned. We will check a follow-up CBC and iron profile in about one month to make sure he is absorbing and responding to iron therapy. If not, we will arrange for IV iron therapy. Leukocytosis 02/08/2019 Overactive bladder 04/11/2018 Chronic low back pain without sciatica 8 Class 1 obesity in adult 05/19/2017 Left elbow pain 05/19/2017 Stable angina 05/19/2017 Essential hypertension 04/04/2016 Assessment & Plan (11/11/2019 11:12 AM COMMUNITY SERVICE OFFICER COORDINATOR): Blood pressure is in a good range. Labs are stable. Continue current therapy and follow up in six months. Assessment & Plan (06/05/2019 4:39 PM CDT): Blood pressure is a bit too high, especially systolic. He is allergic to ARBs (angioedema) so we are also avoiding Lb inhibitors. We will put him on some amlodipine, risk of medication discussed, and see him back in three months. Assessment & Plan (03/16/2019 3:17 PM CDT): Blood pressure is in a good range. Continue current therapy and follow up in two months. Assessment & Plan (03/02/2019 2:03 PM CDT): Blood pressure is borderline to mildly elevated in the office, but he is quite nervous, pacing the room, hyperventilating. He probably has better control at home. We will have him come back in two weeks for a recheck. If still elevated, consider modification in his regimen. Hyperlipidemia associated with type 2 diabetes isaiah eileen 11/09/2015 Assessment & Plan (11/11/2019 11:12 AM COMMUNITY SERVICE OFFICER COORDINATOR): Total and LDL cholesterol are low, but HDL is also low. I recommended increased activity level to bring up his HDL. 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 Benjamin. Assessment & Plan (11/11/2019 11:14 AM COMMUNITY SERVICE OFFICER COORDINATOR): He had stents in 2013. He denies having chest pain. He is on a good medical regimen and follows up with Dr. Benjamin. Assessment & Plan (06/14/2019 6:02 PM CDT): Generally speaking, he is on a good regimen for his underlying coronary disease. On exam today, every fourth beat is dropped. EKG shows basic normal sinus rhythm with nonspecific ST T wave changes and a few unifocal premature ventricular contractions. He denies syncope or recent dizzy spells. The extra beats have been totally asymptomatic. We will consider additional workup as needed for this issue, otherwise continue current medical therapy. Assessment & Plan (05/30/2019 3:45 PM CDT): He denies chest pain. He sees Dr. Benjamin periodically. He is on a reasonable medical regimen at this time. Continue same. Assessment & Plan (03/26/2019 3:36 PM CDT): He had 3 stents in 2013. He is on a good medical regimen. He sees Dr. Benjamin regularly. Continue same. Assessment & Plan (03/02/2019 2:02 PM CDT): He had stents placed in 2013. He denies current chest pain. He sees Dr. Benjamin for follow-up and is on a reasonable medical regimen. Continue same. Type 2 diabetes mellitus wit h complication, without long-term current use of insulin 02/10/2012 Overview (03/02/2019): Coronary artery disease. Assessment & Plan (11/20/2019 2:16 PM COMMUNITY SERVICE OFFICER COORDINATOR): He does not have a glucometer so we will get him one and have him check blood sugars every morning. Recent hemoglobin A1c is 7.4% which is a little higher than we would like. There are no apparent complications at this time. Recommend he increase the glucotrol to 10 mg daily. Hopefully this will bring blood sugars daily. We will get him a glucometer and he should call if blood sugars are running consistently over 200 as additional adjustments may be needed. He is overdue for his dilated eye exam and says he will get this done. Assessment & Plan (05/30/2019 3:49 PM CDT): He does not check blood sugars at home. The most recent hemoglobin A1c from a few months ago was 6.1% indicating good control. He has not had his diabetic eye exam, so I encouraged him to get this before his next visit in three months. Assessment & Plan (03/16/2019 3:21 PM CDT): Hemoglobin A1c about one month ago was 6.1, indicating good control of diabetes with metformin only. Continue same and follow-up in two months. Assessment & Plan (03/02/2019 2:06 PM CDT): He has had diabetes for number of years now and denies any complications. Last eye exam was about three years ago, so he will get that updated. Last hemoglobin A1c was about one month ago and was 6.1. Continue current therapy. Other fatigue 05/12/2009 Overview (11/11/2019): Used to be on testosterone replacement prescribed by former PCP, Dr. Holley. Noncompliant with treatment of sleep apnea. BALDOMERO (obstructive sleep apnea) 02/09/2009 Overview (03/02/2019): Longstanding diagnosis, patient noncompliant with CPAP. Assessment & Plan (11/11/2019 11:14 AM COMMUNITY SERVICE OFFICER COORDINATOR): He is noncompliant with CPAP. Assessment & Plan (06/10/2019 4:05 PM CDT): He has a history of obstructive sleep apnea diagnosed at least 10 years ago. He did not tolerate the CPAP. Given his fatigue and cardiovascular disease, CPAP treatment would be strongly recommended. We will arrange for a follow-up evaluation with Dr. Red. Assessment & Plan (05/30/2019 3:48 PM CDT): He has a lot of fatigue which could be due to untreated sleep apnea (history of noncompliance with CPAP). He also has poor sleep throughout the night due to anxiety issues. The BuSpar does seem to be helping a little bit in this regard, see discussion elsewhere. Assessment & Plan (03/16/2019 3:18 PM CDT): He is fatigued a lot. Some of this could be due to his other conditions, but largely it is probably due to noncompliance with CPAP. I encouraged him to follow up with sleep specialist, but he declines at this time. Assessment & Plan (03/02/2019 2:04 PM CDT): He has had sleep apnea for many years, but has been noncompliant with CPAP. He says it is too much trouble, the machine is too loud, it never worked for him or made him feel better. Consider re-evaluation in the future. Persistent mood disorder 05/12/2004 Overview (03/02/2019): Mostly anxiety with hyperventilation. Started when parents , father of stomach cancer right after he retired, and mother CAD in 2004. Assessment & Plan (11/11/2019 11:15 AM COMMUNITY SERVICE OFFICER COORDINATOR): He continues to have problems with anxiety despite maximum dose of BuSpar. He has panic attacks that come out of nowhere. I recommended formal evaluation by a mental health professional, but he says he cannot afford it. We will continue current medication and supportive care. Assessment & Plan (05/30/2019 3:48 PM CDT): He is not nearly as anxious in the office today as he has been on other visits. I think the BuSpar is probably helping. He still continues to complain of anxiety and depression. Continue medication and supportive care. Assessment & Plan (03/26/2019 3:38 PM CDT): He seems to be doing a bit better, I estimate considerably improved based on his initial visit two weeks ago. He is on BuSpar 10 mg 3 times a day which he says has helped, but he would like to feel better. Two weeks is probably a fair trial of the initial dose, so we will increase the dose to 20 mg 3 times daily. Follow-up in two months. Assessment & Plan (03/15/2019 6:16 PM CDT): He has quite a bit of anxiety. He worries about bills. He has not been able to work because of his heart and his bad left knee. In the past, he has been on Xanax which I do not prescribe for chronic anxiety. He has also been on Celexa, but ran out. We will put him on some BuSpar. We will arrange for follow-up with Psychiatry due to the extreme degree of anxiety. Resolved Problems Problem Noted Date Diagnosed Date Resolved Date Bronchitis 09/24/2018 11/11/2019 Overview (11/11/2019): See office notes. Immunizations Name Administration Dates Next Due Influenza, Trivalent, Adjuvanted, Intramuscular 10/12/2006 Influenza, Trivalent, IM (MDV) 10/12/2006 Pneumococcal Polysaccharide PPV23 10/12/2005 Td, adsorbed 09/11/2010 Social History Tobacco Use Types Packs/Day Years Used Date Smoking Tobacco: Never Smokeless Tobacco: Never Tobacco Cessation:Counseling Given: Not Answered Alcohol Use Standard Drinks/Week Comments Never 0 (1 standard drink = 0.6 oz pur e alcohol) AUDIT-C Answer Date Recorded Q1: How often do you have a drink containing alcohol? Never 08/31/2024 Q2: How many drinks containi ng alcohol do you have on a typical day when you are drinking? Patient does not drink Q3: How often do you have si x or more drinks on one occasion? Never 08/31/2024 Personal Safety Answer Date Recorded Have you ever been in or are you currently in a harmful physical or emotional relationship or is someone making you feel afraid or unsafe? Denies 08/31/2024 Sex and Gender Information Value Date Recorded Sex Assigned at Not on file Legal Sex Male 12:35 AM COMMUNITY SERVICE OFFICER COORDINATOR Gender Identity Male 04/10/2020 12:52 PM CDT Sexual Orientation Straight 04/10/2020 12 :52 PM CDT Last Filed Vital Signs Vital Sign Reading Time Taken Comments Blood Pressure 139/75 11/16/2024 2:14 PM COMMUNITY SERVICE OFFICER COORDINATOR Pulse 95 11/16/2024 2:14 PM COMMUNITY SERVICE OFFICER COORDINATOR Temperature 36.2 C (97.1 F) 11/16/2024 2:14 PM COMMUNITY SERVICE OFFICER COORDINATOR Respiratory Rate 21 11/16/2024 2:14 PM COMMUNITY SERVICE OFFICER COORDINATOR Oxygen Saturation 98% 11/16/2024 2:14 PM COMMUNITY SERVICE OFFICER COORDINATOR Inhaled Oxygen Concentration - - Weight 82.1 kg (181 lb) 11/16/2024 2:14 PM COMMUNITY SERVICE OFFICER COORDINATOR Height 175.3 cm (5' 9 ) 11/16/2024 2:14 PM COMMUNITY SERVICE OFFICER COORDINATOR Body Mass Index 26.73 11/16/2024 2:14 PM COMMUNITY SERVICE OFFICER COORDINATOR Plan of Treatment Not on file Medical Devices Implanted Type Area Public Relations Specialist Device Identifier Shelf Expiration Date Model / Serial / Lot Biotronik Inc Defibrillator Cardiac Acticor 7 Vr-T Dx [id number] - [id number] - [id number] Implanted:Qty: 1 on 03/02/2024 by Vitaliy Donis MD at [facility] ICD Bi[employer]ik Inc 10/11/2024 [id number] / [id number] / Biotronik Inc Lead Defibrillator Plexa Promri L65cm L15cm Cardiac Df4 Sterile Latex Free Disposable S Dx [id number] - [id number] - [id number] Implanted:Qty: 1 on 03/02/2024 by Vitaliy Donis MD at [facility] Lead Biot[employer]ik Inc 10/11/2025 [id number] 09 / [id number] / Medtronic Inc Tyrx Absorbable Antibacterial Envelope-Large 3.3x2.9in [id number] - [id number] Implanted:Qty: 1 on 03/02/2024 by Vitaliy Donis MD at [facility] Mesh Medtronic Inc 12/10/2024 CMRM [id number] / / [id number] Ter[employer] Fiona Angio-Seal Vip 6fr Closere Device [id number] - [id number] Implanted:Qty: 1 on 02/04/2024 by Doron Benjamin MD at [facility] Other - see comments [employer] F[employer] 07/12/2024 [id number] / / [id number] Procedures * The patient is currently admitted. The information in this section might not be complete until the patient is discharged. Procedure Name Priority Date/Time Associated Diagnosis Comments SURGICAL PATHOLOGY Routine 08/31/2024 1: 00 PM COMMUNITY SERVICE OFFICER COORDINATOR COLON REMOVAL SNARE 08/31/2024 9 :26 AM COMMUNITY SERVICE OFFICER COORDINATOR Positive colorectal cancer screening using Cologuard test Encounter for screening colonoscopy POCT GLUCOSE DEVICE Routine 08/31/2024 8 :06 AM COMMUNITY SERVICE OFFICER COORDINATOR COLONOSCOPY 08/31/2024 7:30 AM COMMUNITY SERVICE OFFICER COORDINATOR DEVICE CHECK - REMOTE Routine 08/30/2024 2:21 PM COMMUNITY SERVICE OFFICER COORDINATOR Cardiomyopathy, ischemic ICD (implantable cardioverter-defibri llator) in place EGFR STAT 02/04/2024 8:32 AM CDT Ischemic heart disease due to coronary artery obstruction (CMS/HCC) (HCC) HEMOGLOBIN A1C Routine 11/02/2019 9:00 AM COMMUNITY SERVICE OFFICER COORDINATOR Hypertension associated with diabetes (CMS/HCC) Type 2 diabetes mellitus with complication, without long-term current use of insulin (CMS/HCC) LIPID PANEL Routine 11/02/2019 9:00 AM COMMUNITY SERVICE OFFICER COORDINATOR Hypertension associated with diabetes (CMS/HCC) Mixed hyperlipidemia Type 2 diabetes mellitus with complication, without long-term current use of insulin (CMS/HCC) ALBUMIN CREATININE RATIO, URINE Routine 11/02/2019 9:00 AM COMMUNITY SERVICE OFFICER COORDINATOR Hypertension associated with diabetes (CMS/HCC) Mixed hyperlipidemia Type 2 diabetes mellitus with complication, without long-term current use of insulin (CMS/HCC) PSA SCREEN Routine 03/09/2019 11:25 AM CDT Screening for prostate cancer from Last 3 Months or Most Recently Relevant to Health Maintenance Results * Surgical pathology (08/31/2024 1:00 PM COMMUNITY SERVICE OFFICER COORDINATOR) Colon, Biopsy 08/31/2024 1:0 0 PM COMMUNITY SERVICE OFFICER COORDINATOR 08/31/2024 1:00 PM COMMUNITY SERVICE OFFICER COORDINATOR Narrative 09/01/2024 11:58 AM COMMUNITY SERVICE OFFICER COORDINATOR EPIC results best viewed via link to [facility] Department of Pathology [address] [place] [id number] Note to Patients: This report may contain a detailed description of human tissue sent by a health care provider to the laboratory for pathologic evaluation. The content of this report is essential for diagnosis and may provide important critical findings. This information may be unfamiliar to patients to review without a medical professional present. It is advised that the patient review this report in the presence of a health care provider who can answer questions and explain the details. Final Report Patient Name: DOMINIK MARIE Address: [address] [place] [address]- Gender: M : 1955 (Age: 69) Service: Gastro Location: [facility] Hospital #: [id number] Patient Type: [facility] Taken: 08/31/2024 Received: 08/31/2024 Accessioned: 08/31/2024 Reported: 09/01/2024 Physician(s):Dr. Mich Krishnan DMernaO. Diagnosis: Colon, ascending, biopsy: - Tubular adenoma. - No evidence of high-grade dysplasia or malignancy. Cj Alexander MD Report Electronically Reviewed and Signed Out By Cj Alexander MD 09/01/2024 11:58:17 Specimen(s) Received: A: Ascending colon polyp x 1 Microscopic Description: Microscopic examination shows two polypoid fragments of colonic mucosa with adenomatous mucosal changes consistent with a tubular adenoma. There is no evidence of high-grade dysplasia or malignancy. Clinical History: Positive colorectal cancer screening using Cologuard test. Screening colonoscopy. Gross Description: The specimen is submitted in a single formalin filled container labeled DOMINIK MARIE and ascending colon polyp . It is 2 fragments of cheng tissue measuring 1 and 2 mm. All in one cassette. Jillian Sauceda R.N., P.A./Maryjo Hdez M.D. REPORT IMAGES AND SCANNED DOCUMENTS, IF INCLUDED, ONLY VIEWABLE IN PDF VERSION OF REPORT The performance characteristics of some immunohistochemical stains, fluorescence in-situ hybridization tests and immunophenotyping by flow cytometry cited in this report (if any) were determined by the Surgical Pathology Department at [facility] as part of an ongoing quality assurance tester program and in compliance with federally mandated regulations drawn from the Clinical Laboratory Improvement Act of 1988 (CLIA '88). Some of these tests rely on the use of analyte specific reagents and are subject to specific labeling requirements by the US Food and Drug Administration. Such diagnostic tests may only be performed in a facility that is certified by the Department of Health and Human Services as a high complexity laboratory under CLIA '88. The FDA has determined that such clearance or approval is not necessary. This test is used for clinical purposes. It should not be regarded as investigational or for research. Nevertheless, federal rules concerning the medical use of analyte specific reagents require that the following disclaimer be attached to the report: This test was developed and its performance characteristics determined by the Surgical Pathology Department [facility]. It has not been cleared or approved by the U. S. Food and Drug Administration. Note for decalcified specimens: This assay has not been validated on decalcified tissues. Results should be interpreted with caution given the possibility of false negativity on decalcified specimens Mich Krishnan DO LAB PATHOLOGY ORDERABLES Final Result * POCT glucose (08/31/2024 8:06 AM COMMUNITY SERVICE OFFICER COORDINATOR) Glucose, POC 135 70 - 199 mg/dL Blood 08/31/2024 8:06 AM COMMUNITY SERVICE OFFICER COORDINATOR 08/31/2024 8:06 AM COMMUNITY SERVICE OFFICER COORDINATOR Mich Krishnan DO LAB POCT ORDERABLES - DEVICE F inal Result Performing Organization Address City/State/[facility] Co de Phone Number [facility] 1 [facility] Department of Laboratories [place], [place] [id number] * Colonoscopy (08/31/2024 7:30 AM COMMUNITY SERVICE OFFICER COORDINATOR) Anatomical Region Laterality Modality Other Narrative Procedure Note Mich Krishnan DO - 08/31/2024 7:30 AM CST [facility] Patient Name: Dominik Marie Procedure Date: 08/31/2024 7:30 AM Date of : 1955 Admit Type: Outpatient Age: 69 Gender: Male Attending MD: Mich Krishnan D.O. Room: [facility] ENDOSCOPY ROOM 3 Note Status: Finalized Patient Profile: Refer to note in patient chart for documentation of history and physical. Procedure: Colonoscopy Indications: Last colonoscopy: February 2019, Positive Cologuardtest Referring MD: SHIRA Nelson Providers: Mich Krishnan D.O. Impression: - One 15 mm polyp in the proximal ascending colon, removed with a hot snare. Resected and retrieved. - The examination was otherwise normal on directand retroflexion views. Recommendation: - Discharge patient to home. - Resume previous diet. - Continue present medications. - Await pathology results. - Repeat colonoscopy in 2 years for surveillance. - Return to primary care physician PRN. Medicines: Monitored Anesthesia Care Complications: No immediate complications. Estimated Blood Loss: Estimated blood loss was minimal. Procedure: Pre-Anesthesia Assessment: - As per anesthesia. The benefits, risks and alternatives of theprocedure and sedation were discussed and informed consentwas obtained. All questions were answered. Please referto the signed informed consent document in the medical record. The bowel preparation used was Miralax and bisacodyl tablets via split dose instruction. The scope was passed under direct vision. The Pediatric Colonoscope PCF-H190L [id number] was introducedthrough the anus and advanced to the the cecum, identifiedby appendiceal orifice and ileocecal valve. Theileocecal valve and the appendiceal orifice werephotographed. Findings: The perianal and digital rectal examinations were normal. A 15 mm polyp was found in the proximal ascending colon. The polypwas sessile. The polyp was removed piecemeal with a hot snare. The edgesof the polypectomy site were cauterized utilizing snare tip. Resectionand retrieval were complete. The exam was otherwise without abnormality on direct and retroflexion views. Electronically signed by Mich Krishnan M.D. Mich Krishnan D.O. 08/31/2024 10:16:56 AM Number of Addenda: 0 Note Initiated On: 08/31/2024 7:30 AM Procedure Code(s): --- Professional --- 47754, Colonoscopy, flexible; with removal of tumor(s), polyp(s), or other lesion(s) by snare technique --- Technical --- 44636, Colonoscopy, flexible; with removal of tumor(s), polyp(s), or other lesion(s) by snare technique Diagnosis Code(s): --- Professional --- D12.2, Benign neoplasm of ascending colon R19.5, Other fecal abnormalities --- Technical --- D12.2, Benign neoplasm of ascending colon R19.5, Other fecal abnormalities CPT copyright 2020 [employer]. All rights reserved. The codes documented in this report are preliminary and upon gasket notcher reviewmay be revised to meet current compliance requirements. Recognized by the [place] [employer] for promoting quality in endoscopy us Mich Krishnan DO ENDOSCOPY PROCEDURES Final Res ult * DEVICE CHECK - REMOTE (08/30/2024 2:21 PM COMMUNITY SERVICE OFFICER COORDINATOR) Anatomical Region Laterality Modality Other Narrative 09/07/2024 2:05 AM COMMUNITY SERVICE OFFICER COORDINATOR Images from the original result were not included. 08/31/[address] quarterly remote device check NOTE The following shows snippets from the complete quarterly report. The complete report in its entirety is attached to this Result Text in Deployment Engineer Presenting EGM Last Rep device check 06/20/2024 Next in-office check 10/27/2024 SC ICD, implanted 03/02/2024. Device at [facility]. RVp 0% No event episodes recorded in this monitoring quarter. Alerts Mean PVC/h above limit No anomalies noted on remote Reviewed By Kaur Bernal ELECTRONIC ASSEMBLER GROUP LEADER ATTESTATION I have reviewed the device interrogation report associated with this encounter in detail. I agree with the documentation recorded/scanned into the electronic medical record. Recommendations: Continue current device follow-up. Doron Benjamin MD us Doron Benjamin MD CV CARDIAC SERVICES PROCEDURES Final Result * eGFR (02/04/2024 8:32 AM CDT) eGFR 88 >=60 mL/min/1. 73 m2 Comment: Interpretive Data Reference Interval Normal >/= 90 mL/min/1.73m2 Mildly decreased* 60 - 89 mL/min/1.73m2 Mildly to moderately decreased 45 - 59 mL/min/1.73m2 Moderately to severely decreased 30 - 44 mL/min/1.73m2 Severely decreased 15 - 29 mL/min/1.73m2 Kidney Failure < 15 mL/min/1.73m2 *Relative to young adult level Estimated glomerular filtration rate is determined by the 2020 CKD-EPI equation recommended by the National Kidney Foundation (A Unifying Approach to GFR Estimation: Recommendations of the NKF-ASK Task Force on Reassessing the Inclusion of Race in Diagnosing Kidney Disease, JASN 202). The CKD-EPI equation should not be used for patients with unstable renal function and has not been validated in children and those over 70. Current interpretive data was last reviewed 2021. Blood 02/04/2024 8:32 AM CDT 02/04/2024 8:37 AM CDT us Doron Benjamin MD LAB BLOOD ORDERABLES Final Resu lt [facility] 1 [facility] Department [place] [address] * Albumin Creatinine Ratio, Urine (11/02/2019 9:00 AM COMMUNITY SERVICE OFFICER COORDINATOR) Creatinine, ur 173 20 - 320 mg/dL [facility] Microalbumin, ur 4.5 See Note: mg/dL [facility] [place] Comment: Reference Range: Reference Range Not established Microalbumin/creat ratio 26 <30 mcg/mg creat [facility] Comment: The ADA defines abnormalities in albumin excretion as follows: Category Result (mcg/mg creatinine) Normal <30 Microalbuminuria 30-299 Clinical albuminuria > OR = 300 The ADA recommends that at least two of three specimens collected within a 3-6 month period be abnormal before considering a patient to be within a diagnostic category. Urine 11/02/2019 9:00 AM COMMUNITY SERVICE OFFICER COORDINATOR 11/02/2019 9:01 AM COMMUNITY SERVICE OFFICER COORDINATOR Narrative [facility] - 11/03/2019 11:51 AM COMMUNITY SERVICE OFFICER COORDINATOR FASTING:YES FASTING: YES Resulting Agency Comment Performing Organization Information: Site ID: [id number] Name: [facility] Address: [address] [place] [address] Director: Walker Marquez D.O., MPH us Narayan Wheeler MD LAB URINE ORDERABLES Final Re sult [facility] [employer] [place], [place] * (ABNORMAL) Hemoglobin A1c (11/02/2019 9:00 AM COMMUNITY SERVICE OFFICER COORDINATOR) Hgb A1C 7.4(H) <5.7 % of total Hgb [facility] Comment: For someone without known diabetes, a hemoglobin A1c value of 6.5% or greater indicates that they may have diabetes and this should be confirmed with a follow-up test. For someone with known diabetes, a value <7% indicates that their diabetes is well controlled and a value greater than or equal to 7% indicates suboptimal control. A1c targets should be individualized based on duration of diabetes, age, comorbid conditions, and other considerations. Currently, no consensus exists regarding use of hemoglobin A1c for diagnosis of diabetes for children. Blood specimen (specimen) 11/02/2019 9:00 AM COMMUNITY SERVICE OFFICER COORDINATOR 11/02/2019 9:01 AM COMMUNITY SERVICE OFFICER COORDINATOR Narrative [facility] - 11/03/2019 11:51 AM COMMUNITY SERVICE OFFICER COORDINATOR FASTING:YES FASTING: YES Resulting Agency Comment Performing Organization Information: Site ID: [id number] Name: Kirstin Miller Address: [address] [address] Director: Walker Marquez D.O., MPH us Narayan Wheeler MD LAB BLOOD ORDERABLES Final Re sult [facility] [place] * (ABNORMAL) Lipid panel (11/02/2019 9:00 AM COMMUNITY SERVICE OFFICER COORDINATOR) Cholesterol 91 <200 mg/dL [facility] [place] HDL 29(L) >40 mg/dL [facility] [place] Triglycerides 208(H) <150 mg/dL [facility] [place] Comment: If a non-fasting specimen was collected, consider repeat triglyceride testing on a fasting specimen if clinically indicated. Luh et al. J. of Clin. Lipidol. 2015;9:129-169. LDL 35 mg/dL (calc) [facility] [place] Comment: Reference range: <100 Desirable range <100 mg/dL for primary prevention; <70 mg/dL for patients with CHD or diabetic patients with > or = 2 CHD risk factors. LDL-C is now calculated using the Davide-Portillo calculation, which is a validated novel method providing better accuracy than the Friedewald equation in the estimation of LDL-C. Davide SS et al. JANICE. 2013;310(19): 4460-2185 (http://education.Neurologix.Fiix/faq/NNS797) Chol/HDL ratio 3.1 <5.0 (calc) [facility] [place] Non-HDL, (LDL+VLDL) 62 <130 mg/dL (calc) [facility] [place] Comment: For patients with diabetes plus 1 major ASCVD risk factor, treating to a non-HDL-C goal of <100 mg/dL (LDL-C of <70 mg/dL) is considered a therapeutic option. Blood specimen (specimen) 11/02/2019 9:00 AM COMMUNITY SERVICE OFFICER COORDINATOR 11/02/2019 9:01 AM COMMUNITY SERVICE OFFICER COORDINATOR Narrative [facility] - 11/03/2019 11:51 AM COMMUNITY SERVICE OFFICER COORDINATOR FASTING:YES FASTING: YES Resulting Agency Comment Performing Organization Information: Site ID: [id number] Name: [facility] Address: [address] [address] Director: Walker Marquez D.O., MPH Narayan Wheeler MD LAB BLOOD ORDERABLES Final Re sult Performing Organization Address [facility] Co de Phone Number [facility] [place] * PSA screen (03/09/2019 11:25 AM CDT) PSA 2.9 < OR = 4.0 ng/mL [facility] Comment: The total PSA value from this assay system is standardized against the WHO standard. The test result will be approximately 20% lower when compared to the equimolar-standardized total PSA (Letitia [place]). Comparison of serial PSA results should be interpreted with this fact in mind. This test was performed using the Siemens chemiluminescent method. Values obtained from different assay methods cannot be used interchangeably. PSA levels, regardless of value, should not be interpreted as absolute evidence of the presence or absence of disease. Blood specimen (specimen) 03/09/2019 11:25 AM CDT 03/09/2019 11:26 AM CDT Narrative Resulting Agency Comment Performing Organization Information: Site ID: [id number] Name: Kirstin Miller Address: [address] [address] Director: Walker Marquez D.O., MPH Narayan Wheeler MD LAB BLOOD ORDERABLES Final Re sult Performing Organization Address [facility] Co de Phone Number [facility] [place] from Last 3 Months or Most Recently Relevant to Health Maintenance Insurance [facility] Advance Directives For more information, please contact: [phone] * Full Code (Latest Code Status on File) Date Activated Date Inactivated Comments 08/31/2024 7:37 AM 08/31/2024 3:42 PM * Full Code Date Activated Date Inactivated Comments 08/31/2024 7:37 AM 08/31/2024 7:37 AM * Full Code Date Activated Date Inactivated Comments 02/04/2024 10:01 AM 02/05/2024 11:32 AM Care Teams Pearl Glue Drier Relationship Specialty Start Date End Date Kerri Zuniga NP [address] [place] [address] PCP - General Nurse Practitioner 08/11/24 [place] [address] [place] [id number] Consulting Physician Urology 11/30/23
--- OUTSIDE RECORDS SUMMARY | 2024-11-16 15:36 | XMS_ITS | Encounter Summary ---
Author Organization [facility] Address [address] [place] [address] Phone Care Team Providers Care Diagnostic Radiologist Name Role Phone Candie Johns APRN, CNP Primary Care P rovider Akhil Taylor MD Primary Care Provider [phone] Reason for Visit * Reason Comments Medication Refill Encounter Details Date Type Department Care Team (Late st Contact Info) Description 06/22/2021 Refill [facility] - Primary Care - [address] [place] [address] Candie Johns APRN, CNP [address] [place] [address] Medication Refill Social History Tobacco [...] have Coronavirus / COVID-19? No / Unsure 06/20/2021 9:44 AM CDT documented as of this encounter Plan of Treatment Not on file documented as of this encounter Visit Diagnoses Diagnosis Pure hypercholesterolemia Hyperlipidemia associated with type 2 diabetes mellitus (HCC) documented in this encounter Additional Health Concerns Assessment Noted Time PHQ-9 Depression Total Score: 0 06/07/20 21 1:00 PM CDT documented as of this encounter Care Teams Diagnostic Radiologist Relationship Specialty Start Date End Date Candie Johns APRN, AUTOMATION TECH [address] [place] [address] PCP - General Advanced Practice Nurse 05/16/2008/27 Akhil Taylor MD [address] [place] [address] PCP - General Family Medicine 08/28/22 documented as of this encounter
--- OUTSIDE RECORDS SUMMARY | 2024-11-16 15:36 | XMS_ITS | Encounter Summary ---
Author Organization [facility] Address [address] 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
--- OUTSIDE RECORDS SUMMARY | 2024-11-16 15:36 | XMS_ITS | Encounter Summary ---
Author Organization [facility] Address [address] [place] [address] Phone Care Team Providers Care Stoker Installer Name Role Phone Candie Johns APRN, CNP Primary Care P rovider Akhil Taylor MD Primary Care Provider [phone] Reason for Visit * Reason Onset Date Comments Medication Refill Medication Refill 06/04/2021 Encounter Details Date Type Department Care Team (Late st Contact Info) Description 06/03/2021 Refill [facility] - Primary Care - [address] [place] [address] Candie Johns APRN, CNP [address] [place] [address] Medication Refill; Medication Refill Social History Tobacco Use Types [...] Visit Diagnoses Diagnosis Acquired hypothyroidism Unspecified hypothyroidism documented in this encounter Additional Health Concerns Assessment Noted Time PHQ-9 Depression Total Score: 0 05/16/20 20 1:00 PM CDT documented as of this encounter Care Teams Stoker Installer Relationship Specialty Start Date End Date Candie Johns, VEHICLE WASHER, BUTCHER MEAT [address] [place] [address] PCP - General Advanced Practice Nurse 05/16/2008/27 Akhil Taylor MD [address] [place] [address] PCP - General Family Medicine 08/28/22 documented as of this encounter
--- OUTSIDE RECORDS SUMMARY | 2024-11-16 15:36 | XMS_ITS | Clinical Summary ---
Author Organization [facility] Address [address] [place] [address] Phone Care Team Providers Care Inventory Control Analyst Name Role Phone Akhil Taylor MD Primary Care Provider [phone] Allergies Active Allergy Reactions Criticality Noted Date Comments Losartan Swelling High 02/23/2019 Medications clopidogrel (PLAVIX) 75 MG Tablet Take 1 Tab by mouth daily. 90 Tab 1 8 Active potassium chloride CR (KLORCON) 10 MEQ Tablet Controlled Release TAKE ONE TABLET BY MOUTH ONCE DAILY 90 Tab 3 8 Active spironolactone (ALDACTONE) 25 MG Tablet Take 25 mg by mouth daily. Active carvedilol (COREG) 25 MG TabletIndications:E ssential hypertension,Villegas ry artery disease of [place] artery of [place] heart with stable angina pectoris (HCC) Take 25 mg by mouth 2 times daily. 0 Active MAGNESIUM POIndications:Essen tial hypertension Take 500 mg by mouth daily. Active furosemide (LASIX) 20 MG TabletIndications:E ssential hypertension Take 1 Tablet by mouth daily. PRN for swelling 90 Tablet 1 Active busPIRone (BUSPAR) 10 MG TabletIndications:A nxiety and depression Take 1 tablet by mouth twice daily 180 Tablet 1 2 Active famotidine (PEPCID) 20 MG TabletIndications:G astroesophageal reflux disease, unspecified whether esophagitis present Take 1 Tablet by mouth every evening. 90 Tablet 3 2 Active oxybutynin (DITROPAN) 5 MG Tablet Take 1 tablet by mouth twice daily 180 Tablet 2 Active amLODIPine (NORVASC) 5 MG TabletIndications:E ssential hypertension,Villegas ry artery disease of [place] artery of [place] heart with stable angina pectoris (HCC) Take 1 tablet by mouth once daily 90 Tablet 2 Active levothyroxine (Euthyrox) 137 MCG TabletIndications:A cquired hypothyroidism Take 1 Tablet by mouth daily. 90 Tablet 3 2 Active rosuvastatin (CRESTOR) 40 MG TabletIndications:P ure hypercholesterolemi a,Hyperlipidemia associated with type 2 diabetes mellitus (HCC) Take 1 tablet by mouth once daily 90 Tablet 2 Active glipiZIDE (GLUCOTROL XL) 10 MG TABLET SR 24 HRIndications:Type 2 diabetes mellitus without complication, without long-term current use of insulin (HCC) Take 1 tablet by mouth once daily 90 Tablet 1 2 Active metFORMIN (GLUCOPHAGE) 1000 MG Tablet Take 1 Tablet by mouth 2 times daily. 180 Tablet 2 Active Active Problems Problem Noted Date Diagnosed Date Hyperthyroidism 10/19/2020 Overview (11/30/2020): Last Assessment & Plan: Talk to Primary Doctor regarding the Hyperthyroidism Cardiomyopathy, ischemic 08/14/2020 Class 1 obesity due to exces s calories without serious comorbidity with body mass index (BMI) of 31.0 to 31.9 in adult 05/16/2020 Chronic fatigue 06/08/2019 Low testosterone 05/21/2019 Overview (05/16/2020): Previously took replacement when seeing Dr. Holley. Last Assessment & Plan: He had questions about testosterone replacement. We have recently communicated by phone about this issue and need to schedule some follow-up testing if he wants to consider replacement therapy. Testing is deferred until he has recovered from his acute respiratory illness. Microcytic anemia 02/17/2019 Overview (05/16/2020): Due to iron deficiency, followed by Dr. Mckenzie. Last Assessment & Plan: He is being followed at [facility] by Dr. Mckenzie. He gets iron infusions. Iron profile recently shows some equivocal abnormalities for iron deficiency. He will keep his follow ups with Dr. Mckenzie. Leukocytosis 02/08/2019 Iron deficiency anemia 02/08/2019 Overview (05/16/2020): Last Assessment & Plan: He is no longer seeing Dr. Mckenzie or getting iron infusions because he says everything is back to normal. Last values I have show a mild anemia and elevated iron and transferrin saturation levels. We will check a follow-up CBC before his next visit. Overactive bladder 04/11/2018 Chronic low back pain without sciatica 8 HTN (hypertension) 04/04/2016 HLD (hyperlipidemia) 11/09/2015 Hyperlipidemia associated with type 2 diabetes m ellitus 11/09/2015 Overview (05/16/2020): Last Assessment & Plan: Total and LDL cholesterol are low, but HDL is also low. I recommended increased activity level to bring up his HDL. 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 Benjamin. Last Assessment & Plan: He had stents in 2013. He denies having chest pain. He is on a good medical regimen and follows up with Dr. Benjamin. Persistent mood disorder 05/12/2004 Overview (05/16/2020): Mostly anxiety with hyperventilation. Started when parents , father of stomach cancer right after he retired, and mother CAD in 2004. Last Assessment & Plan: He continues to have problems with anxiety despite maximum dose of BuSpar. He has panic attacks that come out of nowhere. I recommended formal evaluation by a mental health professional, but he says he cannot afford it. We will continue current medication and supportive care. BALDOMERO (obstructive sleep apnea) ED (erectile dysfunction) Type 2 diabetes mellitus wit hout complication, without long-term current use of insulin Coronary artery disease of n ative artery of [place] heart with stable angina pectoris Anxiety and depression Resolved Problems Problem Noted Date Diagnosed Date Resolved Date Angioedema 02/08/2019 05/16/2020 Overview (05/16/2020): Tongue Tongue, ER doctor recommended GI follow up. Bronchitis 09/24/2018 05/16/2020 Left elbow pain 05/19/2017 05/16/2020 Encounters Date Type Department Care Team Description 10/28/2024 Refill [facility] [address] [place] [address] Mundo Agosto, GEOTHERMAL HEAT PUMP MACHINIST, GENERATION TECHNOLOGIST Medication Refill from Last 3 Months Immunizations Immunization Administration Dates Next Due Covid-19, Mrna, Lnp-s, PF, 1 00 mcg/0.5 mL Dose (Moderna) 2021,01/25/2021 Influenza Vaccine greater than 3 yrs 10/12/2006 Influenza, Seasonal, Injectable, Undefined 10/12 Pneumococcal Vaccine Adult - 23 Valent 6 Tetanus Toxoid, Unspecified Formulation 09/11/20 10 Family History Medical History Relation Name Comments Cancer Father STOMACH Congestive Heart Failure Mother Diabetes Mother Relation Name Status Comments Father Mother Social History Tobacco Use Types Packs/Day Years Used Date Smoking Tobacco: Never Smokeless Tobacco: Never Tobacco Cessation:Counseling Given: No Alcohol Use Standard Drinks/Week Comments No 0 [...] file Not on file Not on file Last Filed Vital Signs Vital Sign Reading Time Taken Comments Blood Pressure 114/84 12/24/2021 1:03 PM CDT Pulse 70 12/24/2021 1:03 PM CDT Temperature 36.6 C (97.9 F) 12/24/2021 1:03 PM CDT Respiratory Rate 20 12/24/2021 1:03 PM CDT Oxygen Saturation 96% 12/24/2021 1:03 PM CDT Inhaled Oxygen Concentration - - Weight 108 kg (238 lb) 12/24/2021 1:03 PM CDT Height 175.3 cm (5' 9 ) 12/24/2021 1:03 PM CDT Body Mass Index 35.15 12/24/2021 1:03 PM CDT Plan of Treatment Health Maintenance Due Date Last Done Comments Diabetes: Eye Exam 1957 Diabetes: Foot Exam 1955 Hepatitis C Virus (HCV) Screening 1955 TdaP Immunization 1955 Pneumococcal Immunization (50+ years) (2 of 2 - PCV) 10/12/2006 10/12/2005 Cologuard 2007 Immunochemical Fecal Occult Blood 2007 Zoster Immunization (1 of 2) 2007 Respiratory Syncytial Virus (RSV) Immunization (Adult) (1 - Risk 60-74 years 1-dose series) 2017 Colonoscopy 03/03/2020 03/03/2019, 02/10, 01/13/2011 Colorectal Cancer Screening 03/03/2020 Diabetes: Hemoglobin A1c 06/15/2022 022, 06/20/2021, 12/04/2020, Additional history exists Diabetes: Nephropathy Screening 12/13/2022 12/13/2021, 06/20/2021, 12/04/2020, Additional history exists Influenza Immunization (#1) 2024 10/12/2006 SARS-COV-2 Immunization ( season) 2024 2021, 01/25/2021 03/03/2019, 01/13/2011 Pneumococcal Immunization Combined Discontinued 10/12/2005 PSA Discussion Completed 05/25/2020, 11/09/2015 Hepatitis B Immunization Aged Out No longer eligible based on patient's age to complete this topic Meningococcal Immunization (ACWY) Aged Out No longer eligible based on patient's age to complete this topic Rotavirus Immunization Aged Out No lo nger eligible based on patient's age to complete this topic Procedures Procedure Name Priority Date/Time Associated Diagnosis Comments CMP (COMPREHENSIVE METABOLIC PANEL) Routine 12/13/2021 10:47 AM ALLERGIST Essential hypertension Acquired hypothyroidism Coronary artery disease of [place] artery of [place] heart with stable angina pectoris (HCC) Type 2 diabetes mellitus without complication, without long-term current use of insulin (HCC) Pure hypercholesterolemia 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) HEMOGLOBIN A1C W/ ESTIMATED GLUCOSE Routine 12/13/2021 10:47 AM ALLERGIST Essential hypertension Acquired hypothyroidism Coronary artery disease of [place] artery of [place] heart with stable angina pectoris (HCC) Type 2 diabetes mellitus without complication, without long-term current use of insulin (HCC) Pure hypercholesterolemia 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) PSA SCREEN Routine 05/25/2020 11:48 AM CDT Screening for prostate cancer HM COLONOSCOPY Routine 01/13/2011 from Last 3 Months or Most Recently Relevant to Health Maintenance Results * (ABNORMAL) HEMOGLOBIN A1C W/ ESTIMATED GLUCOSE (12/13/2021 10:47 AM ALLERGIST) HGB-A1C 6.8(H) 4.0 - 6.0 % 12/13/2021 3:05 PM ALLERGIST [facility] Est Average Glucose 148.5 mg/dL 12/13/2021 3:05 PM ALLERGIST [facility] Blood Venipuncture / Unknown 12/13/2021 10:47 AM ALLERGIST 12/13/2021 10:47 AM ALLERGIST Narrative [facility] - 12/13/2021 3:05 PM ALLERGIST HEMOGLOBIN A1C: DIABETIC PATIENTS: WELL-CONTROLLED: 6.2 - 7.0 INTERMEDIATE WELL-CONTROLLED: 7.0 - 9.0 POORLY-CONTROLLED: >9.0 us Candie Johns APRN, GENERATION TECHNOLOGIST CHEMISTRY ORDER CESAR Final Result [facility] [address] [place] [address] * (ABNORMAL) CMP (COMPREHENSIVE METABOLIC PANEL) (12/13/2021 10:47 AM ALLERGIST) SODIUM 141 136 - 144 mmol/L 12/13/2021 3:02 PM [facility] POTASSIUM 4.6 3.5 - 5.1 mmol/L 12/13/2021 3:02 PM [facility] CHLORIDE 104 100 - 110 mmol/L 12/13/2021 3:02 PM [facility] CO2, VENOUS 20(L) 22 - 32 mmol/L 12/13/2021 3:02 PM [facility] ANION GAP 21.6(H) 8.0 - 20.0 mmol/L 12/13/2021 3:02 PM [facility] GLUCOSE 170(H) 70 - 99 mg/dL 12/13/2021 3:02 PM [facility] BUN 21 8 - 23 mg/dL 12/13/2021 3:02 PM [facility] CREATININE, BLOOD 0.97 0.80 - 1.30 mg/dL 12/13/2021 3:02 PM [facility] BUN/CREATININE RATIO 22(H) 12 - 20 ratio 12/13/2021 3:02 PM [facility] TOTAL PROTEIN 7.2 6.0 - 8.3 g/dL 12/13/2021 3:02 PM [facility] ALBUMIN 4.6 3.5 - 5.2 g/dL 12/13/2021 3:02 PM [facility] Comment: The colormetric methods used for the determination of Albumin may lead to falsely elevated test results in patients suffering from renal failure or insufficiency due to interference with other proteins. A/G RATIO 1.8 1.0 - 2.0 12/13/2021 3:02 PM [facility] CALCIUM 9.5 8.9 - 10.3 mg/dL 12/13/2021 3:02 PM [facility] T BILI 0.9 <=1.2 mg/dL 12/13/2021 3:02 PM [facility] SGOT (AST) 22 <=40 U/L 12/13/2021 3:02 PM [facility] SGPT (ALT) 15 <=41 U/L 12/13/2021 3:02 PM ALLERGIST [facility] ALKALINE PHOSPHATASE 100 40 - 130 U/L 12/13/2021 3:02 PM ALLERGIST [facility] GFR, EST. NONAFRICAN >60 >=60 12/13/2021 3:02 PM ALLERGIST [facility] GFR, EST. >60 >=60 022 3:02 PM ALLERGIST [facility] Comment: Creatinine Clearance is the preferred criteria for selecting drug dose adjustments in renally impaired patients. The GFR is provided as additional pertinent clinical information. GFR is reported in mL/min/1.73 sq m. IS THE PATIENT REQUIRED TO BE FASTING? No 12/13/2021 3:02 PM ALLERGIST [facility] Blood Venipuncture / Unknown 12/13/2021 10:47 AM ALLERGIST 12/13/2021 10:47 AM ALLERGIST Candie Johns GEOTHERMAL HEAT PUMP MACHINIST, GENERATION TECHNOLOGIST CHEMISTRY ORDER CESAR Final Result [facility] [address] [place] [address] * PSA SCREEN (05/25/2020 11:48 AM CDT) PSA SCREEN, TOTAL 3.13 <=4.00 ng/mL 05/25/2020 4:49 PM CDT [facility] Blood Venipuncture / Unknown 05/25/2020 11:48 AM CDT 05/25/2020 11:48 AM CDT Narrative [facility] - 05/25/2020 4:49 PM CDT PSA NOTE: The PSA value should be used in conjunction with information available from clinical evaluation and other diagnostic procedures. us Candie Johns GEOTHERMAL HEAT PUMP MACHINIST, GENERATION TECHNOLOGIST CHEMISTRY ORDER CESAR Final Result [facility] [address] [place] [address] * HM COLONOSCOPY (01/13/2011) Rl Sharma MD PROCEDURE/MINOR SURGICAL ORDE RAYO Final Result from Last 3 Months or Most Recently Relevant to Health Maintenance Insurance MEDICARE C E[place] Advance Directives Documents on File Type Date Recorded Patient Clearance Cutter Expl anation Power of Packer Denture for Health Care 03/04/2019 9:37 AM POA-HC * Full Code (Latest Code Status on File) Date Activated Date Inactivated Comments 02/08/2019 3:40 PM 02/09/2019 5:10 PM CPR-Full Trini tment: FULL ARREST: Attempt Resuscitation/CPR wit intubation and mechanical ventilation. PRE-ARREST: Use entire range of life support measures to stabilize the patient. * Full Code Date Activated Date Inactivated Comments 05/19/2017 8:43 AM 05/20/2017 1:11 AM CPR-Full Treat ment: FULL ARREST: Attempt Resuscitation/CPR wit intubation and mechanical ventilation. PRE-ARREST: Use entire range of life support measures to stabilize the patient. Care Teams Inventory Control Analyst Relationship Specialty Start Date End Date Akhil Taylor MD [address] [place] [address] PCP - General Family Medicine 08/28/22
--- OUTSIDE RECORDS SUMMARY | 2024-11-16 15:36 | XMS_ITS | Encounter Summary ---
Author Organization [facility] Address [address] [place] [address] Phone Care Team Providers Care Babcock Tester Name Role Phone Candie Johns APRN, CNP Primary Care P rovider Akhil Taylor MD Primary Care Provider [phone] Reason for Visit * Reason Comments Medication Refill Encounter Details Date Type Department Care Team (Late st Contact Info) Description 01/17/2021 Refill [facility] - Primary Care - [address] [place] [address] Candie Johns APRN, CNP [address] [place] [address] Medication Refill Social History Tobacco [...] Encounter - Candie Johns APN, CNP - 01/17/2021 11:50 AM CDT Too soon * Telephone Encounter - Sissy García RN - 01/17/2021 9:12 AM CDT Medication failed the protocol, provider to review and approve the medication order if appropriate. Requested Prescriptions Pending Prescriptions Disp Refills busPIRone (BUSPAR) 10 MG Tablet [Pharmacy Med Name: busPIRone HCl 10 MG Oral Tablet] 180 Tablet 0 Sig: Take 1 tablet by mouth twice daily Not Delegated - Psychiatry: Anxiolytics/Hypnotics Failed - 01/17/2021 8:52 AM Failed - This refill cannot be delegated Passed - Valid encounter within last 6 months Past Office Visits Recent Outpatient Visits 1 month ago Acquired hypothyroidism [facility] Candie Johns APN, CNP 8 months ago Essential hypertension [facility] Candie Johns APN, CNP 2 years ago Anxiety [facility] MD 2 years ago Essential hypertension [facility] MD 2 years ago Bronchitis [facility] MD Upcoming Appointments Future Appointments In 4 months Candie Johns APN, CNP [facility] - Recent and Past Visits Recent Visits Date Type Provider Dept 11/30/20 Office Visit Candie Johns APN, CNP [facility] 05/16/20 Office Visit Candie Johns APN, CNP [facility] Showing recent visits within past 460 [...] Time PHQ-9 Depression Total Score: 0 05/16/20 1:00 PM CDT documented as of this encounter Care Teams Babcock Tester Relationship Specialty Start Date End Date Candie Johns APRN, NEW CAR DRIVER [address] [place] [address] PCP - General Advanced Practice Nurse 05/16/2008/27 Akhil Taylor MD [address] [place] [id number] PCP - General Family Medicine 08/28/22 documented as of this encounter
--- OUTSIDE RECORDS SUMMARY | 2024-11-16 15:36 | XMS_ITS | Encounter Summary ---
Author Organization [facility] Address [address] [place] [address] Phone Care Team Providers Care Gear Design Engineer Name Role Phone Candie Johns APRN, CNP Primary Care P rovider Akhil Taylor MD Primary Care Provider [phone] Reason for Visit * Reason Comments Medication Refill Encounter Details Date Type Department Care Team (Late st Contact Info) Description 03/22/2022 Refill [facility] - Primary Care - [address] [place] [address] Candie Johns APRN, CNP [address] [place] [address] Medication Refill Social History Tobacco [...] encounter Miscellaneous Notes * Telephone Encounter - Fawn Rebolledo RN - 03/24/2022 9:04 AM CDT Refill request too soon. documented in this encounter Plan of Treatment Not on file documented as of this encounter Visit Diagnoses Diagnosis Anxiety and depression Dysthymic disorder documented in this encounter Additional Health Concerns Assessment Noted Time PHQ-9 Depression Total Score: 0 06/07/20 21 1:00 PM CDT documented as of this encounter Care Teams Gear Design Engineer Relationship Specialty Start Date End Date Candie Johns APRN, JOINER APPRENTICE [address] [place] [address] PCP - General Advanced Practice Nurse 05/16/2008/27 Akhil Taylor MD [address] [place] [id number] PCP - General Family Medicine 08/28/22 documented as of this encounter
--- OUTSIDE RECORDS SUMMARY | 2024-11-16 15:36 | XMS_ITS | Encounter Summary ---
Author Organization [facility] Address [address] [place] [address] Phone Care Team Providers Care Pellet Post Inspector Name Role Phone Candie Johns APRN, CNP Primary Care P rovider Akhil Taylor MD Primary Care Provider [phone] Reason for Visit * Reason Comments Medication Refill Encounter Details Date Type Department Care Team (Late st Contact Info) Description 03/20/2022 Refill [facility] - Primary Care - [address] [place] [address] Candie Johns APRN, CNP [address] [place] [address] Medication Refill Social History Tobacco [...] Telephone Encounter - Fawn Rebolledo RN - 03/20/2022 8:45 AM CDT Refill request too soon. documented in this encounter Plan of Treatment Not on file documented as of this encounter Visit Diagnoses Diagnosis Anxiety and depression Dysthymic disorder documented in this encounter Additional Health Concerns Assessment Noted Time PHQ-9 Depression Total Score: 0 06/07/20 21 1:00 PM CDT documented as of this encounter Care Teams Pellet Post Inspector Relationship Specialty Start Date End Date Candie Johns APRN, CABLE RIGGER [address] [place] [address] PCP - General Advanced Practice Nurse 05/16/2008/27 Akhil Taylor MD [address] [place] [address] PCP - General Family Medicine 08/28/22 documented as of this encounter
--- OUTSIDE RECORDS SUMMARY | 2024-11-16 15:36 | XMS_ITS | Clinical Summary ---
Author Organization [facility] [address] Address [address] [place] [address] Phone Care Team Providers Care Palliative Medicine Physician Name Role Phone Gil Dow MD Unavailable [phone] Kerri Zuniga NP Primary Care Provider [phone] Allergies Active Allergy Reactions Criticality Noted Date [...] unspecified vessel or lesion type, unspecified whether citizen potawatomi or transplanted heart (HCC) Take 1 tablet [...] 10/19/2020 Assessment & Plan (10/19/2020 1:38 PM MACHINE CEMENTER AND FOLDER): Talk to Primary Doctor regarding the Hyperthyroidism [...] 10/19/2020 Assessment & Plan (10/19/2020 1:38 PM MACHINE CEMENTER AND FOLDER): Talk to Primary Doctor regarding the Hyperthyroidism Allergic rhinitis 09/18/2020 Assessment & Plan (04/07/2022 2:57 PM CDT): Continue nasal saline and Flonase and Astelin twice daily may use Fromberg gel or Aquaphor apply pea-size amount into each nostril with a cotton tipped applicator, being carefully just to tuck it into each nostril, then massage soft portion of the outer nose to massage the ointment around inside the nose. Cetirizine 10 mg (Zyrtec) daily Assessment & Plan (12/20/2021 1:51 PM MACHINE CEMENTER AND FOLDER): Nasal saline spray (Simply saline, Little Remedies, Renville, Fromberg) 2 second sprays or 2 squeezes into [...] Astelin Assessment & Plan (11/27/2020 8:49 PM MACHINE CEMENTER AND FOLDER): Continue nasal saline followed by Astelin (azelastine) 2 sprays into each nostril while looking down over the sink, do not sniff in or blow nose after use for at least 30 minutes twice daily Assessment & Plan (09/18/2020 10:44 AM MACHINE CEMENTER AND FOLDER): Continue nasal saline and Astelin Continue Cetirizine [...] meal Assessment & Plan (12/20/2021 1:51 PM MACHINE CEMENTER AND FOLDER): Nasal saline spray (Simply saline, Little Remedies, Renville, Fromberg) 2 second sprays or 2 squeezes into [...] days Assessment & Plan (10/19/2020 1:38 PM MACHINE CEMENTER AND FOLDER): Bactroban apply pea-size amount into each nostril [...] Nasal saline spray (Simply saline, Little Remedies, Renville, Fromberg) 2 second sprays or 2 squeezes into [...] Nasal saline spray (Simply saline, Little Remedies, Renville, Fromberg) 2 second sprays or 2 squeezes into [...] 10/12/2019 Assessment & Plan (11/20/2019 2:12 PM MACHINE CEMENTER AND FOLDER): He came down with a respiratory infection [...] Pepcid. Assessment & Plan (09/18/2020 12:53 PM MACHINE CEMENTER AND FOLDER): Continue nasal saline and Astelin Continue Cetirizine [...] 02/08/2019 Assessment & Plan (11/20/2019 2:13 PM MACHINE CEMENTER AND FOLDER): He is no longer seeing Dr. Mckenzie [...] 04/04/2016 Assessment & Plan (11/11/2019 11:12 AM MACHINE CEMENTER AND FOLDER): Blood pressure is in a good range. [...] 11/09/2015 Assessment & Plan (11/11/2019 11:12 AM MACHINE CEMENTER AND FOLDER): Total and LDL cholesterol are low, but HDL is also low. I recommended increased activity level to bring up his HDL. 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 Benjamin. Assessment & Plan (11/11/2019 11:14 AM MACHINE CEMENTER AND FOLDER): He had stents in 2013. He denies [...] disease. Assessment & Plan (11/20/2019 2:16 PM MACHINE CEMENTER AND FOLDER): He does not have a glucometer so [...] CPAP. Assessment & Plan (11/11/2019 11:14 AM MACHINE CEMENTER AND FOLDER): He is noncompliant with CPAP. Assessment & [...] 2004. Assessment & Plan (11/11/2019 11:15 AM MACHINE CEMENTER AND FOLDER): He continues to have problems with anxiety [...] 09/24/2018 11/11/2019 Overview (11/11/2019): See office notes. 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 08/31/2024 9:36 AM MACHINE CEMENTER AND FOLDER Anesthesia Event [address] [address] iNa Milligan MD 08/31/2024 8:30 AM MACHINE CEMENTER AND FOLDER - 08/31/2024 9:00 AM MACHINE CEMENTER AND FOLDER Surgery [address] [address] Mich Krishnan, COLON REMOVAL SNARE 08/31/2024 7:26 AM MACHINE CEMENTER AND FOLDER - 08/31/2024 11:37 AM MACHINE CEMENTER AND FOLDER Hospital Encounter [address] [address] Mich Krishnan, Positive colorectal cancer screening using Cologuard test; Encounter for screening colonoscopy Discharge Disposition: Discharge to home or self care 08/31/2024 Orders Only [address] [address] Mich Krishnan, 08/30/2024 Orders Only [place] [employer] [employer] [address] [place] [address] Malec, Sissy Cardiomyopathy, ischemic (Primary Dx); 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 PARTIAL KNEE ARTHROPLASTY 10/12/2006 - 10/11/[address] Moore. REVISION TOTAL KNEE ARTHROPLASTY - 10/11/[address] Esquivel [place]. CORONARY STENT PLACEMENT 10/12/2013 - 10/11/2014 Three stents in [address] Benjamin. ESOPHAGOGASTRODUODENOSCOPY 03/03/2019 Gastric polyps and gastritis, Dr. Barakat, [facility]. COLONOSCOPY 03/03/2019 Fair prep, hemorrhoids, no polyps, Dr. Barakat, [facility]. INSERT / REPLACE / REMOVE PACEMAKER CARDIAC DEFIBRILLATOR PLACEMENT 02/10/2024 - 03/11/2024 NASAL SEPTUM SURGERY 10/12/2023 - 10/11/2024 Deviated septum Medical History Medical History Date Comments CAD (coronary artery disease) 03/02/2019 BALDOMERO (obstructive sleep apnea) 03/02/2019 No ncompliant with CPAP. Bronchitis 09/24/2018 See office notes . Chicken pox 1965 Hyperthyroidism 10/19/2020 Cardiomyopathy, ischemic 08/14/2020 GERD (gastroesophageal reflux disease) Depression Anxiety DM (diabetes mellitus) ([facility]) HTN (hypertension) HLD (hyperlipidemia) Adenomatous colon polyp HFrEF (heart failure with re duced ejection fraction) (CMS/HCC) ([facility]) Family History Medical History Relation Name Comments Stomach cancer Father COD Coronary artery disease Mother COD Heart disease Mother Kidney failure Mother Relation Name Status Comments Father Mother Sister Alive Social History Tobacco Use Types Packs/Day Years [...] on file Legal Sex Male 12:35 AM MACHINE CEMENTER AND FOLDER Gender Identity Male 04/10/2020 12:52 PM CDT Sexual Orientation Straight 04/10/2020 12 :52 PM CDT Obstetrics History Last Filed Vital Signs Vital Sign Reading Time Taken Comments Blood Pressure 139/75 11/16/2024 2:14 PM MACHINE CEMENTER AND FOLDER Pulse 95 11/16/2024 2:14 PM MACHINE CEMENTER AND FOLDER Temperature 36.2 C (97.1 F) 11/16/2024 2:14 PM MACHINE CEMENTER AND FOLDER Respiratory Rate 21 11/16/2024 2:14 PM MACHINE CEMENTER AND FOLDER Oxygen Saturation 98% 11/16/2024 2:14 PM MACHINE CEMENTER AND FOLDER Inhaled Oxygen Concentration - - Weight 82.1 kg (181 lb) 11/16/2024 2:14 PM MACHINE CEMENTER AND FOLDER Height 175.3 cm (5' 9 ) 11/16/2024 2:14 PM MACHINE CEMENTER AND FOLDER Body Mass Index 26.73 11/16/2024 2:14 PM MACHINE CEMENTER AND FOLDER Plan of Treatment Health Maintenance Due Date Last Done Comments Depression Screening 1955 Hepatitis C Screening 1955 Dilated Eye Exam 1955 Hepatitis B Screening 1975 Pneumococcal vaccine 65+ (2 of 2 - PCV) 10/12/2006 10/12/2005 Zoster Vaccine (1 of 2) 2007 DTaP/Tdap/Td Vaccine (1 - Tdap) 09/12/2010 0 Hemoglobin A1C 05/02/2020 11/02/2019 Albumin Creatinine Ratio, Urine 11/02/2020 0, 03/09/2019 Foot Exam 11/11/2020 11/11/2019, 05/12, 03/02/2019 Prostate Cancer Screening-PSA 03/09/2021 03/09/2019 Well Visit 65+ 2022 03/02/2019 Lipid Panel 12/13/2022 12/13/2021, 11/13, 05/25/2020, Additional history exists Covid-19 Vaccine ( - 2023-2 5 season) 2024 2021, 01/25/2021 Influenza Vaccine (#1) 2024 10/12/2006, 2006 eGFR 02/03/2025 02/04/2024, 11/02/2019 Fall Risk Assessment 08/31/2025 08/31/2024, 10/23/19 Colon Cancer Screening-Colonoscopy 08/31/2034 08/31/2024, 03/03/2019 Colon Cancer Screening-CT Colonography Discontinued 08/31/2024, 03/03/2019 Colon Cancer Screening-DNA Stool Discontinued 08/31/20 24, 03/03/2019 Colon Cancer Screening-FIT Discontinued 08/31/2024, Colon Cancer Screening-Sigmoidoscopy Discontinued 08/31/2024, 03/03/2019 Medical Devices Implanted Type Area Maintenance Associate Device Identifier Shelf Expiration Date Model / Serial / Lot [employer] Defibrillator Cardiac Acticor 7 Vr-T Dx [id number] - [id number] - [id number] Implanted:Qty: 1 on 03/02/2024 by Vitaliy Donis MD at [facility] ICD [employer] 10/11/2024 [id number] / [id number] / [employer] Lead Defibrillator Plexa Promri L65cm L15cm Cardiac Df4 Sterile Latex Free Disposable S Dx [id number] - [id number] - [id number] Implanted:Qty: 1 on 03/02/2024 by Vitaliy Donis MD at [facility] Lead [employer] 10/11/2025 [id number] / [id number] / Medtronic Inc Tyrx Absorbable Antibacterial Envelope-Large 3.3x2.9in [id number] - [id number] Implanted:Qty: 1 on 03/02/2024 by Vitaliy Donis MD at [facility] Mesh [employer] Inc 12/10/2024 CMRM [id number] / / [id number] [employer] Angio-Seal Vip 6fr Closere Device [id number] - [id number] Implanted:Qty: 1 on 02/04/2024 by Doron Benjamin MD at [facility] Other - see comments [employer] 07/12/2024 [id number] / / [id number] Procedures * The patient is currently admitted. The information in this section might not be complete until the patient is discharged. Procedure Name Priority Date/Time Associated Diagnosis Comments SURGICAL PATHOLOGY Routine 08/31/2024 1: 00 PM MACHINE CEMENTER AND FOLDER COLON REMOVAL SNARE 08/31/2024 9 :26 AM MACHINE CEMENTER AND FOLDER Positive colorectal cancer screening using Cologuard test Encounter for screening colonoscopy POCT GLUCOSE DEVICE Routine 08/31/2024 8 :06 AM MACHINE CEMENTER AND FOLDER COLONOSCOPY 08/31/2024 7:30 AM MACHINE CEMENTER AND FOLDER DEVICE CHECK - REMOTE Routine 08/30/2024 2:21 PM MACHINE CEMENTER AND FOLDER Cardiomyopathy, ischemic ICD (implantable cardioverter-defibri llator) in place EGFR STAT 02/04/2024 8:32 AM CDT Ischemic heart disease due to coronary artery obstruction (CMS/HCC) ([facility]) HEMOGLOBIN A1C Routine 11/02/2019 9:00 AM MACHINE CEMENTER AND FOLDER Hypertension associated with diabetes (CMS/[facility]) Type 2 diabetes mellitus with complication, without long-term current use of insulin (CMS/HCC) LIPID PANEL Routine 11/02/2019 9:00 AM MACHINE CEMENTER AND FOLDER Hypertension associated with diabetes (CMS/HCC) Mixed hyperlipidemia Type 2 diabetes mellitus with complication, without long-term current use of insulin (CMS/HCC) ALBUMIN CREATININE RATIO, URINE Routine 11/02/2019 9:00 AM MACHINE CEMENTER AND FOLDER Hypertension associated with diabetes (CMS/HCC) Mixed hyperlipidemia Type 2 diabetes mellitus with complication, without long-term current use of insulin (CMS/HCC) PSA SCREEN Routine 03/09/2019 11:25 AM CDT Screening for prostate cancer from Last 3 Months or Most Recently Relevant to Health Maintenance Results * Surgical pathology (08/31/2024 1:00 PM MACHINE CEMENTER AND FOLDER) Colon, Biopsy 08/31/2024 1:0 0 PM MACHINE CEMENTER AND FOLDER 08/31/2024 1:00 PM MACHINE CEMENTER AND FOLDER Narrative 09/01/2024 11:58 AM MACHINE CEMENTER AND FOLDER EPIC results best viewed via link to PDF [facility] Department of Pathology [address] [place] [address] Note to Patients: This report may contain [...] Final Report Patient Name: DOMINIK MARIE Address: [address] [place] [address]- Gender: M : 1955 (Age: 69) Service: Gastro Location: [facility] Hospital #: [id number] Patient Type: [facility] Taken: 08/31/2024 Received: 08/31/2024 Accessioned: 08/31/2024 Reported: 09/01/2024 Physician(s):Dr. Mich Klucka, D.O. Diagnosis: Colon, ascending, biopsy: - Tubular adenoma. [...] determined by the Surgical Pathology Department at [facility] as part of an ongoing quality process engineer program and in compliance with federally mandated [...] characteristics determined by the Surgical Pathology Department [facility]. It has not been cleared or approved by the U. S. Food and Drug Administration. Note for decalcified specimens: This assay has not been validated on decalcified tissues. Results should be interpreted with caution given the possibility of false negativity on decalcified specimens Mich Krishnan DO LAB PATHOLOGY ORDERABLES Final Result * POCT glucose (08/31/2024 8:06 AM MACHINE CEMENTER AND FOLDER) Glucose, POC 135 70 - 199 mg/dL Blood 08/31/2024 8:06 AM MACHINE CEMENTER AND FOLDER 08/31/2024 8:06 AM MACHINE CEMENTER AND FOLDER Mich Krishnan DO LAB POCT ORDERABLES - DEVICE F inal Result [facility] [address] [facility] Department [place] [address] * Colonoscopy (08/31/2024 7:30 AM MACHINE CEMENTER AND FOLDER) Anatomical Region Laterality Modality Other Narrative Procedure Note Mich Krishnan DO - 08/31/2024 7:30 AM CST [facility] Patient Name: Dominik Marie Procedure Date: 08/31/2024 7:30 AM Date of : 1955 Admit Type: Outpatient Age: 69 Gender: Male Attending MD: Mich Krishnan D.O. Room: [facility] ENDOSCOPY ROOM 3 Note Status: Finalized Patient Profile: Refer to note in patient chart for documentation of history and physical. Procedure: Colonoscopy Indications: Last colonoscopy: February 2019, Positive Cologuardtest Referring MD: SHIRA Nelson Providers: Mich T. Klucka, D.O. Impression: - One 15 mm polyp [...] under direct vision. The Pediatric Colonoscope PCF-H190L [id number] was introducedthrough the anus and advanced to [...] 7:30 AM Procedure Code(s): --- Professional --- 12491, Colonoscopy, flexible; with removal of tumor(s), polyp(s), or other lesion(s) by snare technique --- Technical --- 18195, Colonoscopy, flexible; with removal of tumor(s), polyp(s), or other lesion(s) by snare technique Diagnosis Code(s): --- Professional --- D12.2, Benign neoplasm of ascending colon R19.5, Other fecal abnormalities --- Technical --- D12.2, Benign neoplasm of ascending colon R19.5, Other fecal abnormalities CPT copyright 2020 [employer]. All rights reserved. The codes documented in this report are preliminary and upon test developer reviewmay be revised to meet current compliance requirements. Recognized by the [place] [employer] for promoting quality in endoscopy us Mich Krishnan DO ENDOSCOPY PROCEDURES Final Res ult * DEVICE CHECK - REMOTE (08/30/2024 2:21 PM MACHINE CEMENTER AND FOLDER) Anatomical Region Laterality Modality Other Narrative 09/07/2024 2:05 AM MACHINE CEMENTER AND FOLDER Images from the original result were not included. 08/31/2024 [facility] quarterly remote device check NOTE The following shows snippets from the complete quarterly report. 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 Device at [facility]. RVp 0% No event episodes recorded in this monitoring quarter. Alerts Mean PVC/h above limit No anomalies noted on remote Reviewed By Kaur Bernal RN BSN ATTESTATION I have reviewed the device interrogation [...] of Race in Diagnosing Kidney Disease, JASN 2020). The CKD-EPI equation should not be used for patients with unstable renal function and has not been validated in children and those over 70. Current interpretive data was last reviewed 2021. Blood 02/04/2024 8:32 AM CDT 02/04/2024 8:37 AM CDT Doron Benjamin MD LAB BLOOD ORDERABLES Final Resu lt [facility] [address] [facility] Department [place] [address] * Albumin Creatinine Ratio, Urine (11/02/2019 9:00 AM MACHINE CEMENTER AND FOLDER) Creatinine, ur 173 20 - 320 mg/dL [facility] [place] Microalbumin, ur 4.5 See Note: mg/dL [facility] [place] Comment: Reference Range: Reference Range Not established Microalbumin/creat ratio 26 <30 mcg/mg creat [facility] [place] Comment: The ADA defines abnormalities in albumin excretion as follows: Category Result (mcg/mg creatinine) Normal <30 Microalbuminuria 30-299 Clinical albuminuria > OR = 300 The ADA recommends that at least two of three specimens collected within a 3-6 month period be abnormal before considering a patient to be within a diagnostic category. Urine 11/02/2019 9:00 AM MACHINE CEMENTER AND FOLDER 11/02/2019 9:01 AM MACHINE CEMENTER AND FOLDER Narrative [facility] - 11/03/2019 11:51 AM MACHINE CEMENTER AND FOLDER FASTING:YES FASTING: YES Resulting Agency Comment Performing Organization Information: Site ID: [place] Name: [facility] Address: [address] [facility] [place] [address] Director: Walker Marquez D.O., MPH Narayan Wheeler MD LAB URINE ORDERABLES Final Re sult Performing Organization Address [facility] de Phone Number [facility] [place] * (ABNORMAL) Hemoglobin A1c (11/02/2019 9:00 AM MACHINE CEMENTER AND FOLDER) Hgb A1C 7.4(H) <5.7 % of total Hgb [facility] Comment: For someone without known diabetes, [...] children. Blood specimen (specimen) 11/02/2019 9:00 AM MACHINE CEMENTER AND FOLDER 11/02/2019 9:01 AM MACHINE CEMENTER AND FOLDER Narrative [facility] - 11/03/2019 11:51 AM MACHINE CEMENTER AND FOLDER FASTING:YES FASTING: YES Resulting Agency Comment Performing Organization Information: Site ID: [place] Name: [facility]in Miller Address: [address] [place] [address] [place] [address] Director: Walker Marquez D.O. MPH Narayan Wheeler MD LAB BLOOD ORDERABLES Final Re sult Performing Organization Address [facility] Co de Phone Number [facility] [place] * (ABNORMAL) Lipid panel (11/02/2019 9:00 AM MACHINE CEMENTER AND FOLDER) Cholesterol 91 <200 mg/dL [facility] [place] HDL 29(L) >40 mg/dL [facility] [place] Triglycerides 208(H) <150 mg/dL [facility] Comment: If a non-fasting specimen was collected, consider repeat triglyceride testing on a fasting specimen if clinically indicated. Luh et al. J. of Clin. Lipidol. 2015;9:129-169. LDL 35 mg/dL (calc) [facility] Comment: Reference range: <100 Desirable range <100 mg/dL for primary prevention; <70 mg/dL for patients with CHD or diabetic patients with > or = 2 CHD risk factors. LDL-C is now calculated using the Kristin calculation, which is a validated novel method providing better accuracy than the Friedewald equation in the estimation of LDL-C. Davide SS et al. JANICE. 2013;310(19): 8571-6616 (http://education.27 bards/faq/NMO100) Chol/HDL ratio 3.1 <5.0 (calc) [facility] Non-HDL, (LDL+VLDL) 62 <130 mg/dL (calc) [facility] Comment: For patients with diabetes plus 1 major ASCVD risk factor, treating to a non-HDL-C goal of <100 mg/dL (LDL-C of <70 mg/dL) is considered a therapeutic option. Blood specimen (specimen) 11/02/2019 9:00 AM MACHINE CEMENTER AND FOLDER 11/02/2019 9:01 AM MACHINE CEMENTER AND FOLDER Narrative [facility] - 11/03/2019 11:51 AM MACHINE CEMENTER AND FOLDER FASTING:YES FASTING: YES Resulting Agency Comment Performing Organization Information: Site ID: [place] Name: [facility] Address: [address] [facility] [place] [address] Director: Walker Marquez D.O., MPH Narayan Wheeler MD LAB BLOOD ORDERABLES Final Re sult [facility] [place] * PSA screen (03/09/2019 11:25 AM CDT) PSA 2.9 < OR = 4.0 ng/mL [facility] Comment: The total PSA value from this assay system is standardized against the WHO standard. The test result will be approximately 20% lower when compared to the equimolar-standardized total PSA (Letitia Debra). Comparison of serial PSA results should be [...] Organization Information: Site ID: [id number] Name: [facility] Address: [address] [address] Director: Walker Marquez D.O., MPH Narayan Wheeler MD LAB BLOOD ORDERABLES Final Re sult [facility] [place] from Last 3 Months or Most Recently Relevant to Health Maintenance Insurance [facility] Advance Directives For more information, please contact: [phone] * Full Code (Latest Code Status on File) Date Activated Date Inactivated Comments 08/31/2024 7:37 AM 08/31/2024 3:42 PM * Full Code Date Activated Date Inactivated Comments 08/31/2024 7:37 AM 08/31/2024 7:37 AM * Full Code Date Activated Date Inactivated Comments 02/04/2024 10:01 AM 02/05/2024 11:32 AM Care Teams Palliative Medicine Physician Relationship Specialty Start Date End Date Kerri Zuniga NP [address] [place] [address] PCP - General Nurse Practitioner 08/11/24 [place] [address] [place] [address] Consulting Physician Urology 11/30/23
--- OUTSIDE RECORDS SUMMARY | 2024-11-16 15:36 | XMS_ITS | Encounter Summary ---
Author Organization [facility] Healthcare Address [address] [place] [id number] Care Team Providers Care Mva Reactor Operator Name Role Phone Gil Dow MD Unavailable [phone] Kerri Zuniga NP Primary Care Provider [phone] Reason for Visit * Reason Comments Anxiety Encounter Details Date Type Department Care Team (Late st Contact Info) Description 11/16/2024 3:32 PM ACADEMIC INTERN - Present Emergency [facility] Emergency Department [address] [place] [id number] Social History Tobacco Use Types Packs/Day Years Used Date Smoking Tobacco: Never Smokeless Tobacco: Never Alcohol Use Standard Drinks/Week Comments Never 0 [...] on file Legal Sex Male 12:35 AM ACADEMIC INTERN Gender Identity Male 04/10/2020 12:52 PM CDT Sexual Orientation Straight 04/10/2020 12 :52 PM CDT documented as of this encounter Last Filed Vital Signs Vital Sign Reading Time Taken Comments Blood Pressure 139/75 11/16/2024 2:14 PM ACADEMIC INTERN Pulse 95 11/16/2024 2:14 PM ACADEMIC INTERN Temperature 36.2 C (97.1 F) 11/16/2024 2:14 PM ACADEMIC INTERN Respiratory Rate 21 11/16/2024 2:14 PM ACADEMIC INTERN Oxygen Saturation 98% 11/16/2024 2:14 PM ACADEMIC INTERN Inhaled Oxygen Concentration - - Weight 82.1 kg (181 lb) 11/16/2024 2:14 PM ACADEMIC INTERN Height 175.3 cm (5' 9 ) 11/16/2024 2:14 PM ACADEMIC INTERN Body Mass Index 26.73 11/16/2024 2:14 PM ACADEMIC INTERN documented in this encounter ED Notes * Lizeth Morel RN - 11/16/2024 2:13 PM CST Pt ambulatory to triage for anxiety. Pt states for 2 hours he has been sweaty, fidgety, and sweats.Pt states Hx of anxiety. EMIC INTERN documented in this encounter Plan of Treatment Not on file documented as of this encounter Visit Diagnoses Not on filedocumented in this encounter Care Teams Mva Reactor Operator Relationship Specialty Start Date End Date Kerri Zuniga NP [address] [place] [id number] PCP - General Nurse Practitioner 08/11/24 [place] [address] [place] [address] Consulting Physician Urology 11/30/23 documented as of this encounter
--- OUTSIDE RECORDS SUMMARY | 2024-11-16 15:38 | XMS_ITS | Continuity of Care Document ---
Author Organization [facility] Address [address] [place] [address] Phone Care Team Providers Care Account Strategist Name Role Phone Teodoro Kirk MD Unavailable [...] Providers Copied on Encounter [facility], [address], [facility], tel:[phone] [facility] No Information [address]. [address] [place], [id number] . tel: [phone] [facility], [address] [place] [address], [facility], tel:[phone] [facility] No Information 5 Reagan Valerio. [address] [place], [place], [id number] . tel: [phone] OFFICE/OUTPA TIENT VISIT EST [facility], [address] [place] [address], [facility], tel:[phone] [facility] DJD (degenerative joint disease), lumbarLow back painAcquired spondylolisthesis 3 Reagan Teodoro. [address], [place], [place], [id number] . tel: [phone] Referring Provider: Clinton Parsons, [address] [facility] [address], [place], [address] . tel:[phone] [facility], [address] [facility] [address], [place], [address], tel:[phone] [facility] Thoracic or lumbosacral neuritis or radiculitis 3 [address] Teodoro. [address], [place], [place], [id number] . tel: [phone] Family History Family Member Type Diagnosis Age At Onset No Information Payers Payer name Insurance type Covered republican ID Authoriza tion(s) No Information Social History [...]
== END 2024-11-16 15:55 | disposition short-term general hospital (02) ==
PROVIDERS: Emergency Provider Registered Nurse
DX: F41.9 Anxiety disorder, unspecified (principal); F41.0 Panic disorder [episodic paroxysmal anxiety]; Z20.822 Contact with and (suspected) exposure to COVID-19; I25.10 Atherosclerotic heart disease of native coronary artery without angina pectoris; I10 Essential (primary) hypertension; E11.9 Type 2 diabetes mellitus without complications; Z79.84 Long term (current) use of oral hypoglycemic drugs; Z79.85 Long-term (current) use of injectable non-insulin antidiabetic drugs; I48.0 Paroxysmal atrial fibrillation; I25.2 Old myocardial infarction; E78.00 Pure hypercholesterolemia, unspecified; Z95.810 Presence of automatic (implantable) cardiac defibrillator; Z95.5 Presence of coronary angioplasty implant and graft; Z98.52 Vasectomy status
CPT/HCPCS: 87426; 87804; 99213; G0463

== ENCOUNTER 2024-12-19 11:09 | Outpatient (CLI) | payer OTHER, SELFPAY ==
--- NOTE | ~2024-12-19 | XR_ITS ---
XR sacrum coccyx min 2V Ordering provider: Kerri Zuniga APRN History: . Pain in lower back after fall . Comparison: None. FINDINGS: BONES: Fracture of the first coccygeal segment. Degenerative spine. JOINTS: The sacroiliac joint spaces shows bilateral sacroiliitis. SOFT TISSUES: Normal. IMPRESSION: Fracture of the first coccygeal segment. Reviewed, dictated and finalized at location A.
--- NOTE | ~2024-12-19 | XR_ITS ---
3 VIEWS LUMBAR SPINE Ordering provider: Kerri Zuniga APRN History: . W19.XXXA - Unspecified fall, initial encounter . Comparison: August 27, 2022 FINDINGS: VERTEBRAL BODIES:Fracture of the first coccygeal segment. No visible subluxation. Degenerative prasad es of the spine. Chronic loss of volume of T11 is noted. DISK SPACES: Narrowing of all the disc spaces. Multilevel facet degenerative disease. SOFT TISSUES: Normal. IMPRESSION: Fracture of the first coccygeal segment.. Multilevel degenerative disc disease. Multilevel facet joint disease. Reviewed, dictated and finalized at location A.
--- OUTSIDE RECORDS SUMMARY | 2024-12-19 13:25 | XMS_ITS | Clinical Summary ---
Author Organization [facility] [place] [address] Address [address] [place] [address] Phone Care Team Providers Care Firebrick And Refractory Tile Repairer Name Role Phone Gil Dow MD Unavailable [phone] Kerri Zuniga NP Primary Care Provider Allergies Active Allergy Reactions Criticality Noted Date Comments Losartan Swelling High 02/23/2019 Medications rosuvastatin (CRESTOR) 40 mg tablet Take 1 tablet (40 mg total) by mouth daily Active metFORMIN (GLUCOPHAGE) 1,000 mg tabletIndicatio ns:type 2 diabetes mellitus Take 1 tablet (1,000 mg total) by mouth 2 (two) times a day 60 tablet 5 020 Active mupirocin (BACTROBAN) 2 % ointmentIndicat ions:Acute recurrent maxillary sinusitis APPLY OINTMENT TOPICALLY TO AFFECTED AREA TWICE DAILY FOR 14 DAYS 22 g 022 Active tamsulosin (FLOMAX) 0.4 mg extended release capsule TAKE 1 CAPSULE BY MOUTH EVERY DAY AT BEDTIME [address] (PROTONIX) 20 mg EC [...] mg total) by mouth as needed Active solifenacin (VESIcare) 10 mg tablet Take 1 tablet (10 mg total) by mouth daily Active cetirizine (ZyrTEC) 10 mg tablet Take 1 tablet (10 mg total) by mouth daily Active traZODone (DESYREL) 150 mg tablet Take 1 tablet (150 mg total) by mouth nightly as needed for sleep Active levothyroxine (SYNTHROID) 100 mcg tablet Take 1 tablet (100 mcg total) by mouth daily Active carvediloL (COREG) 6.25 mg tablet Take 1 tablet (6.25 mg total) by mouth 2 (two) times a day with meals 60 tablet 11 2024 Active clopidogreL (PLAVIX) 75 mg tabletIndicatio ns:Coronary artery disease with angina pectoris, unspecified vessel or lesion type, unspecified whether stillaguamish or transplanted heart Take 1 tablet by mouth once daily 90 tablet 3 Active Mounjaro 12.5 mg/0.5 mL pen injector Inject 12.5 mg as directed every 2 (two) weeks As needed Active metOLazone (ZAROXOLYN) 2.5 mg tablet Take 1 tablet (2.5 mg total) by mouth every other day 60 tablet Active LORazepam (ATIVAN) 0.5 mg tabletIndicatio ns:Anxiety disorder, unspecified type Take 0.5 tablets (0.25 mg total) by mouth every 8 (eight) hours as needed for anxiety Collaborating physician Damian Valdez MD 8 tablet Active ALPRAZolam (XANAX) 0.5 mg tablet Active finasteride (PROSCAR) 5 mg tablet Take 1 tablet (5 mg total) by mouth daily Active HYDROcodone-lb taminophen (NORCO) 7.5-325 mg per tablet TAKE 1 TABLET BY MOUTH EVERY DAY AT BEDTIME NEEDED FOR PAIN Active potassium chloride ER 10 mEq CR tablet Take 1 tablet/capsule (10 mEq total) by mouth daily Active semaglutide (Ozempic) 0.25 mg or 0.5 mg(2 mg/1.5 mL) pen injector injection 025 Active sertraline (ZOLOFT) 50 mg tablet 025 Active spironolactone (ALDACTONE) 25 mg tablet Take 1 tablet (25 mg total) by mouth daily 90 tablet 3 025 Active spironolactone (ALDACTONE) 25 mg tablet Take 1/2 (one-half) tablet by mouth once daily 45 tablet 3 024 2024 Discontinued Active Problems Problem Noted Date Diagnosed Date Complaint of panic attack 11/16/2024 Anxiety disorder 11/16/2024 Positive colorectal cancer screening using Colog uard [...] 10/19/2020 Assessment & Plan (10/19/2020 1:38 PM SENIOR POLICY ASSOCIATE): Talk to Primary Doctor regarding the Hyperthyroidism [...] 10/19/2020 Assessment & Plan (10/19/2020 1:38 PM SENIOR POLICY ASSOCIATE): Talk to Primary Doctor regarding the Hyperthyroidism Allergic rhinitis 09/18/2020 Assessment & Plan (04/07/2022 2:57 PM CDT): Continue nasal saline and Flonase and Astelin twice daily may use Jackson gel or Aquaphor apply pea-size amount into each nostril with a cotton tipped applicator, being carefully just to tuck it into each nostril, then massage soft portion of the outer nose to massage the ointment around inside the nose. Cetirizine 10 mg (Zyrtec) daily Assessment & Plan (12/20/2021 1:51 PM SENIOR POLICY ASSOCIATE): Nasal saline spray (Simply saline, Little Remedies, Terrell, Jackson) 2 second sprays or 2 squeezes into [...] Astelin Assessment & Plan (11/27/2020 8:49 PM SENIOR POLICY ASSOCIATE): Continue nasal saline followed by Astelin (azelastine) 2 sprays into each nostril while looking down over the sink, do not sniff in or blow nose after use for at least 30 minutes twice daily Assessment & Plan (09/18/2020 10:44 AM SENIOR POLICY ASSOCIATE): Continue nasal saline and Astelin Continue Cetirizine [...] meal Assessment & Plan (12/20/2021 1:51 PM SENIOR POLICY ASSOCIATE): Nasal saline spray (Simply saline, Little Remedies, Terrell, Jackson) 2 second sprays or 2 squeezes into [...] days Assessment & Plan (10/19/2020 1:38 PM SENIOR POLICY ASSOCIATE): Bactroban apply pea-size amount into each nostril [...] Nasal saline spray (Simply saline, Little Remedies, Terrell, Jackson) 2 second sprays or 2 squeezes into [...] Nasal saline spray (Simply saline, Little Remedies, Terrell, Jackson) 2 second sprays or 2 squeezes into [...] 10/12/2019 Assessment & Plan (11/20/2019 2:12 PM SENIOR POLICY ASSOCIATE): He came down with a respiratory infection [...] Pepcid. Assessment & Plan (09/18/2020 12:53 PM SENIOR POLICY ASSOCIATE): Continue nasal saline and Astelin Continue Cetirizine [...] 02/08/2019 Assessment & Plan (11/20/2019 2:13 PM SENIOR POLICY ASSOCIATE): He is no longer seeing Dr. Mckenzie [...] 04/04/2016 Assessment & Plan (11/11/2019 11:12 AM SENIOR POLICY ASSOCIATE): Blood pressure is in a good range. [...] Hyperlipidemia associated with type 2 diabetes isaiah arellano 11/09/2015 Assessment & Plan (11/11/2019 11:12 AM SENIOR POLICY ASSOCIATE): Total and LDL cholesterol are low, but HDL is also low. I recommended increased activity level to bring up his HDL. 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 Benjamin. Assessment & Plan (11/11/2019 11:14 AM SENIOR POLICY ASSOCIATE): He had stents in 2013. He denies [...] disease. Assessment & Plan (11/20/2019 2:16 PM SENIOR POLICY ASSOCIATE): He does not have a glucometer so [...] CPAP. Assessment & Plan (11/11/2019 11:14 AM SENIOR POLICY ASSOCIATE): He is noncompliant with CPAP. Assessment & [...] 2004. Assessment & Plan (11/11/2019 11:15 AM SENIOR POLICY ASSOCIATE): He continues to have problems with anxiety [...] Encounters Date Type Department Care Team Description 11/30/2024 10:45 AM SENIOR POLICY ASSOCIATE Ancillary Procedure [facility] [address] [phone] ICD (implantable cardioverter-defibril lator) in place; Cardiomyopathy, ischemic; Coronary artery disease involving stillaguamish coronary artery of stillaguamish heart with angina pectoris 11/21/2024 2:15 PM SENIOR POLICY ASSOCIATE Ancillary Procedure [facility] at [address] [phone] Implantable defibrillator reprogramming/check (Primary Dx); ICD (implantable cardioverter-defibril lator) in place; Cardiomyopathy, ischemic; Coronary artery disease involving stillaguamish coronary artery of stillaguamish heart with angina pectoris 11/21/2024 2:15 PM SENIOR POLICY ASSOCIATE Office Visit 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, bilateral legs 11/16/2024 6:29 PM SENIOR POLICY ASSOCIATE - 11/16/2024 7:29 PM SENIOR POLICY ASSOCIATE Emergency [facility] Emergency Department [address] [place] [address] Complaint of panic attack (Primary Dx); Anxiety disorder, unspecified type Discharge Disposition: Discharge to home or self care 11/16/2024 3:32 PM SENIOR POLICY ASSOCIATE - 11/16/2024 4:12 PM SENIOR POLICY ASSOCIATE Emergency [facility] Emergency Department [address] [place] [address] Discharge Disposition: Left without being seen 11/16/2024 3:23 PM SENIOR POLICY ASSOCIATE - 11/16/2024 11:59 PM SENIOR POLICY ASSOCIATE Hospital Encounter [facility] Emergency, Room R Discharge Disposition: Discharge to home or self care 10/18/[address] [facility] at [address] [phone] Austin Perry MA from Last 3 Months Immunizations Immunization Administration Dates Next Due Influenza, Trivalent, Adjuvanted, Intramuscular 10/12/2006 Influenza, Trivalent, IM (MDV) 10/12/2006 Pneumococcal Polysaccharide PPV23 10/12/2005 Td, adsorbed 09/11/2010 Surgical History Surgery Date Site/Laterality Comments COLONOSCOPY 10/12/2006 - 10/11/2007 Date approximate, polyps removed, details lacking. PARTIAL KNEE ARTHROPLASTY 10/12/2006 - 10/11/[address] Moore. REVISION TOTAL KNEE ARTHROPLASTY - 10/11/[address] Esquivel [place]. CORONARY STENT PLACEMENT 10/12/2013 - 10/11/2014 Three [...] reflux disease) Depression Anxiety DM (diabetes mellitus) ([facility]) HTN (hypertension) HLD (hyperlipidemia) Adenomatous colon polyp HFrEF (heart failure with re duced ejection fraction) ([facility]) Family History Medical History Relation Name Comments [...] making you feel afraid or unsafe? Denies 11/16/2024 Sex and Gender Information Value Date Recorded Sex Assigned at Not on file Legal Sex Male 12:35 AM SENIOR POLICY ASSOCIATE Gender Identity Male 04/10/2020 12:52 PM CDT Sexual Orientation Straight 04/10/2020 12 :52 PM CDT Obstetrics History Last Filed Vital Signs Vital Sign Reading Time Taken Comments Blood Pressure 122/81 11/21/2024 2:29 PM SENIOR POLICY ASSOCIATE Pulse 77 11/21/2024 2:29 PM SENIOR POLICY ASSOCIATE Temperature 36.3 C (97.4 F) 11/16/2024 5:53 PM SENIOR POLICY ASSOCIATE Respiratory Rate 18 11/21/2024 2:29 PM SENIOR POLICY ASSOCIATE Oxygen Saturation 98% 11/16/2024 7:28 PM SENIOR POLICY ASSOCIATE Inhaled Oxygen Concentration - - Weight 80.3 kg (177 lb) 11/21/2024 2:29 PM SENIOR POLICY ASSOCIATE Height 175.3 cm (5' 9 ) 11/21/2024 2:29 PM SENIOR POLICY ASSOCIATE Body Mass Index 26.14 11/21/2024 2:29 PM SENIOR POLICY ASSOCIATE Plan of Treatment Health Maintenance Due Date [...] 11/13, 05/25/2020, Additional history exists Covid-19 Vaccine (2023-2 5 season) 2024 2021, 01/25/2021 Influenza Vaccine (#1) 2024 10/12/2006, 2006 eGFR 02/03/2025 02/04/2024, 11/02/2019 Fall Risk Assessment 08/31/2025 08/31/2024, 10/23/19 Colon Cancer Screening-Colonoscopy 08/31/2034 08/31/2024, 03/03/2019 Colon Cancer Screening-CT Colonography Discontinued 08/31/2024, 03/03/2019 Colon Cancer Screening-DNA Stool Discontinued 08/31/20, 03/03/2019 Colon Cancer Screening-FIT Discontinued 08/31/2024, Colon Cancer Screening-Sigmoidoscopy Discontinued 08/31/2024, 03/03/2019 Medical Devices Implanted Type Area Director Of Elementary Education Device Identifier Shelf Expiration Date Model / Serial / Lot [employer] Defibrillator Cardiac Acticor 7 Vr-T Dx 527347 - [id number] - [id number] Implanted:Qty: 1 on 03/02/2024 by Vitaliy Donis MD at [facility] ICD [employer] 10/11/2024 [id number] / [id number] / [employer] Lead Defibrillator Plexa Promri L65cm L15cm Cardiac Df4 Sterile Latex Free Disposable S Dx [id number] - [id number] - [id number] Implanted:Qty: 1 on 03/02/2024 by Vitaliy Donis MD at [facility] Lead [employer] 10/11/2025 [id number] / [id number] / Medtronic Inc Tyrx Absorbable Antibacterial Envelope-Large 3.3x2.9in [id number] - [id number] Implanted:Qty: 1 on 03/02/2024 by Vitaliy Donis MD at [facility] Mesh Med[employer]onic Inc 12/10/2024 CMRM [id number] / / [id number] [facility] Fiona Angio-Seal Vip 6fr Closere Device [id number] - [id number] Implanted:Qty: 1 on 02/04/2024 by Doron Benjamin MD at [facility] Other - see comments [employer] 07/12/2024 [id number] / / [id number] Procedures Procedure Name Priority Date/Time Associated Diagnosis Comments DEVICE CHECK - REMOTE Routine 11/29/2024 3:45 PM SENIOR POLICY ASSOCIATE ICD (implantable cardioverter-defibri llator) in place Cardiomyopathy, ischemic Coronary artery disease involving stillaguamish coronary artery of stillaguamish heart with angina pectoris DEVICE CHECK - IN OFFICE Routine 11/21/2024 2:02 PM SENIOR POLICY ASSOCIATE ICD (implantable cardioverter-defibri llator) in place Cardiomyopathy, ischemic Coronary artery disease involving stillaguamish coronary artery of stillaguamish heart with angina pectoris COLONOSCOPY 08/31/2024 7:30 AM SENIOR POLICY ASSOCIATE EGFR STAT 02/04/2024 8:32 AM CDT 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) HEMOGLOBIN A1C Routine 11/02/2019 9:00 AM SENIOR POLICY ASSOCIATE Hypertension associated with diabetes (HCC) Type 2 diabetes mellitus with complication, without long-term current use of insulin (HCC) LIPID PANEL Routine 11/02/2019 9:00 AM SENIOR POLICY ASSOCIATE Hypertension associated with diabetes (HCC) Mixed hyperlipidemia Type 2 diabetes mellitus with complication, without long-term current use of insulin (HCC) ALBUMIN CREATININE RATIO, URINE Routine 11/02/2019 9:00 AM SENIOR POLICY ASSOCIATE Hypertension associated with diabetes (HCC) Mixed hyperlipidemia Type 2 diabetes mellitus with complication, without long-term current use of insulin (HCC) PSA SCREEN Routine 03/09/2019 11:25 AM CDT Screening for prostate cancer from Last 3 Months or Most Recently Relevant to Health Maintenance Results * DEVICE CHECK - REMOTE (11/29/2024 3:45 PM SENIOR POLICY ASSOCIATE) Anatomical Region Laterality Modality Other Narrative 12/02/2024 5:00 PM SENIOR POLICY ASSOCIATE Images from the original result were not included. 11/30/2024 [employer] quarterly remote device check NOTE The following shows snippets from the complete quarterly report. The complete report in its entirety is attached to this Result Text in Forming Roll Operator Heavy Duty Presenting EGM Last in-office check 11/21/2024 6 month f/u office visit 05/22/2025 SC ICD, implanted 03/02/2024 with 100% est remaining longevity RVp 0% No event episodes recorded since last in-office check on 11/21/2024 Alert Mean PVC/h above limit (> 100 PVC/h) Above limit since Nov 29, 2024, 1:33:02 AM - Last value 226 PVC/h measured on Nov 30, 2024. Reviewed By aKur Bernal RN BSN ATTESTATION I have reviewed the device interrogation report associated with this encounter in detail. I agree with the documentation recorded/scanned into the electronic medical record. Recommendations: Continue current device follow-up. Doron Benjamin MD Doron Benjamin MD [facility] PROCEDURES Final Result * DEVICE CHECK - IN OFFICE (11/21/2024 2:02 PM SENIOR POLICY ASSOCIATE) Anatomical Region Laterality Modality Other Narrative 11/21/2024 3:30 PM SENIOR POLICY ASSOCIATE Images from the original result were not included. 11/21/2024 [employer] in-office device check The complete report is attached to this Result Text in Forming Roll Operator Heavy Duty Doron Benjamin MD [facility] PROCEDURES Final Result * Colonoscopy (08/31/2024 7:30 AM SENIOR POLICY ASSOCIATE) Anatomical Region Laterality Modality Other Narrative Procedure Note Mich Krishnan, - 08/31/2024 7:30 AM CST [facility] Patient Name: Mervin Marie Procedure Date: 08/31/2024 7:30 AM Date of : 1955 Admit Type: Outpatient Age: 69 Gender: Male Attending MD: Mich Krishnan D.O. Room: [facility] RO[facility] 3 Note Status: Finalized [...] under direct vision. The Pediatric Colonoscope PCF-H190L [id number] was introducedthrough the anus and advanced to [...] 7:30 AM Procedure Code(s): --- Professional --- 23992, Colonoscopy, flexible; with removal of tumor(s), polyp(s), or other lesion(s) by snare technique --- Technical --- 91404, Colonoscopy, flexible; with removal of tumor(s), polyp(s), or other lesion(s) by snare technique Diagnosis Code(s): --- Professional --- D12.2, Benign neoplasm of ascending colon R19.5, Other fecal abnormalities --- Technical --- D12.2, Benign neoplasm of ascending colon R19.5, Other fecal abnormalities CPT copyright 2020 [employer]. All rights reserved. The codes documented in this report are preliminary and upon inpatient coder reviewmay be revised to meet current compliance requirements. Recognized by the [place] [employer] for promoting quality in endoscopy Mich Krishnan DO ENDOSCOPY PROCEDURES Final Res ult * eGFR (02/04/2024 8:32 AM CDT) eGFR [...] LAB BLOOD ORDERABLES Final Resu lt [facility]) [address] [facility] [place] [address] * Albumin Creatinine Ratio, Urine (11/02/2019 9:00 AM SENIOR POLICY ASSOCIATE) Creatinine, ur 173 20 - 320 mg/dL [facility] [place] Microalbumin, ur 4.5 See [...] a diagnostic category. Urine 11/02/2019 9:00 AM SENIOR POLICY ASSOCIATE 11/02/2019 9:01 AM SENIOR POLICY ASSOCIATE Narrative [facility] - 11/03/2019 11:51 AM SENIOR POLICY ASSOCIATE FASTING:YES FASTING: YES Resulting Agency Comment Performing Organization Information: Site ID: [place] Name: [facility] Address: [address] [address] Director: Walker Marquez D.O., MPH Narayan Wheeler MD LAB URINE ORDERABLES Final Re sult Performing Organization Address [facility] Co de Phone Number [facility] [place] * (ABNORMAL) Hemoglobin A1c (11/02/2019 9:00 AM SENIOR POLICY ASSOCIATE) Hgb A1C 7.4(H) <5.7 % of total Hgb [facility] [place] Comment: For someone without known diabetes, a [...] children. Blood specimen (specimen) 11/02/2019 9:00 AM SENIOR POLICY ASSOCIATE 11/02/2019 9:01 AM SENIOR POLICY ASSOCIATE Narrative [facility] - 11/03/2019 11:51 AM SENIOR POLICY ASSOCIATE FASTING:YES FASTING: YES Resulting Agency Comment Performing Organization Information: Site ID: [place] Name: [facility] Address: [address] [address] Director: Walker Marquez D.O., MPH Narayan Wheeler MD LAB BLOOD ORDERABLES Final Re sult Performing Organization Address [facility] Co de Phone Number [facility] [place] * (ABNORMAL) Lipid panel (11/02/2019 9:00 AM SENIOR POLICY ASSOCIATE) Cholesterol 91 <200 mg/dL [facility] [place] HDL 29(L) >40 mg/dL [facility] Triglycerides 208(H) <150 mg/dL [facility] [place] Comment: If a non-fasting specimen was collected, consider repeat triglyceride testing on a fasting specimen if clinically indicated. Luh et al. J. of Clin. Lipidol. 2015;9:129-169. LDL 35 mg/dL (calc) [facility] [place] Comment: Reference range: <100 Desirable range <100 mg/dL for primary prevention; <70 mg/dL for patients with CHD or diabetic patients with > or = 2 CHD risk factors. LDL-C is now calculated using the Kristin calculation, which is a validated novel method providing better accuracy than the Friedewald equation in the estimation of LDL-C. Davide GRULLON et al. JANICE. 2013;310(19): 1356-4825 (http://education.[employer]/faq/QWK494) Chol/HDL ratio 3.1 <5.0 (calc) [facility] Non-HDL, (LDL+VLDL) 62 <130 mg/dL (calc) [facility] Comment: For patients with diabetes plus 1 major ASCVD risk factor, treating to a non-HDL-C goal of <100 mg/dL (LDL-C of <70 mg/dL) is considered a therapeutic option. Blood specimen (specimen) 11/02/2019 9:00 AM SENIOR POLICY ASSOCIATE 11/02/2019 9:01 AM SENIOR POLICY ASSOCIATE Narrative [facility] - 11/03/2019 11:51 AM SENIOR POLICY ASSOCIATE FASTING:YES FASTING: YES Resulting Agency Comment Performing Organization Information: Site ID: [place] [facility] Address: [address] [facility] [place] [address] Director: Walker Marquez D.O., MPH Narayan Wheeler MD LAB BLOOD ORDERABLES Final Re sult [facility] [place], [place] * PSA screen (03/09/2019 11:25 AM CDT) PSA 2.9 < OR = 4.0 ng/mL [facility] Comment: The total PSA value from this [...] Site ID: [id number] Name: [facility] Address: [address] [address] Director: Walker Marquez D.O., MPH us Narayan Wheeler MD LAB BLOOD ORDERABLES Final Re sult [facility] from Last 3 Months or Most Recently Relevant to Health Maintenance Insurance [facility] [place] [address] [facility] [place] [address] Advance Directives For more information, please contact: [phone] * Full Code (Latest Code Status on File) Date Activated Date Inactivated Comments 08/31/2024 7:37 AM 08/31/2024 3:42 PM * Full Code Date Activated Date Inactivated Comments 08/31/2024 7:37 AM 08/31/2024 7:37 AM * Full Code Date Activated Date Inactivated Comments 02/04/2024 10:01 AM 02/05/2024 11:32 AM Care Teams Firebrick And Refractory Tile Repairer Relationship Specialty Start Date End Date Kerri Zuniga NP [address] [place] [address] [place] [address] PCP - General Nurse Practitioner 08/11/24 [place] [address] [place] [address] Consulting Physician Urology 11/30/23
--- OUTSIDE RECORDS SUMMARY | 2024-12-19 13:25 | XMS_ITS | Encounter Summary ---
Author Organization [facility] Address [address] [place] [address] Phone Care Team Providers Care Forestry Technician Name Role Phone Candie Johns APRN, CNP Primary Care P rovider Akhil Taylor MD Primary Care Provider [phone] Reason for Visit * Reason Comments Medication Refill Encounter Details Date Type Department Care Team (Late st Contact Info) Description 11/30/[address] [facility] - Primary Care - [address] [place] [address] Candie Johns APRN, CNP [address] [place] [address] Medication Refill Social History Tobacco [...] COVID-19? No / Unsure 11/30/2020 12:44 PM ACCOUNTING MANAGER ASSISTANT CONTROLLER documented as of this encounter Plan of Treatment Not on file documented as of this encounter Visit Diagnoses Not on filedocumented in this encounter Additional Health Concerns Assessment Noted Time PHQ-9 Depression Total Score: 0 05/16/20 20 1:00 PM CDT documented as of this encounter Care Teams Forestry Technician Relationship Specialty Start Date End Date Candie Johns APRN, FOOD BAGGING MACHINE OPERATOR [address] [place] [address] PCP - General Advanced Practice Nurse 05/16/2008/27 Akhil Taylor MD [address] [place] [address] PCP - General Family Medicine 08/28/22 documented as of this encounter
--- OUTSIDE RECORDS SUMMARY | 2024-12-19 13:25 | XMS_ITS | Encounter Summary ---
Author Organization [facility] Address [address] [place] [address] Phone Care Team Providers Care Helicopter Specialist Name Role Phone Candie Johns APRN, CNP Primary Care P rovider Akhil Taylor MD Primary Care Provider [phone] Reason for Visit * Reason Comments Medication Refill Encounter Details Date Type Department Care Team (Late st Contact Info) Description 11/24/2020 Refill [facility] - Primary Care - [address] [place] [address] Candie Johns APRN, CNP [address] [place] [address] Medication Refill Social History Tobacco [...] CNP - 11/26/2020 12:11 PM CST duplicate ISION LAYOUT WORKER * Telephone Encounter - Nasreen Mello RN - 11/26/2020 11:58 AM PRECISION LAYOUT WORKER Medication failed the protocol, provider to review [...] Outpatient Visits 6 months [address] [facility] Candie Johns APN, CNP 2 years ago Anxiety [facility] - Rl Alicea MD 2 years ago Essential hypertension [facility] Rl Alicea MD 2 years ago Bronchitis [facility] - Rl Alicea MD 2 years ago Essential hypertension [facility] Rl Alicea MD Upcoming Appointments Future Appointments In 4 days Candie Johns APN, CNP [facility] - Recent and Past Visits Recent Visits Date Type Provider Dept 05/16/20 Office Visit Candie Johns APN, CNP [facility] Showing recent visits within past 460 days with a meds authorizing provider and meeting all other requirements Future Appointments Date Type Provider Dept 11/30/20 Appointment Candie Johns APN, CNP [facility] Showing future appointments within next 90 days with a meds authorizing provider and meeting all other requirements Failed - This refill cannot be delegated ISION LAYOUT WORKER documented in this encounter Plan of Treatment Not on file documented as of this encounter Visit Diagnoses Not on filedocumented in this encounter Additional Health Concerns Assessment Noted Time PHQ-9 Depression Total Score: 0 05/16/20 20 1:00 PM CDT documented as of this encounter Care Teams Helicopter Specialist Relationship Specialty Start Date End Date Candie Johns APRN, SERVICE OR WORK DISPATCHER [address] [place] [address] PCP - General Advanced Practice Nurse 05/16/2008/27 Akhil Taylor MD [address] [place] [address] PCP - General Family Medicine 08/28/22 documented as of this encounter
--- OUTSIDE RECORDS SUMMARY | 2024-12-19 13:25 | XMS_ITS | Encounter Summary ---
Author Organization [facility] Address [address] [place] [address] Phone Care Team Providers Care Solar Process Engineer Name Role Phone Candie Johns APRN, CNP Primary Care P rovider Akhil Taylor MD Primary Care Provider [phone] Reason for Visit * Reason Comments Medication Refill Encounter Details Date Type Department Care Team (Late st Contact Info) Description 05/08/2021 Refill [facility] - Primary Care - [address] [place] [address] Candie Johns APRN, CNP [address] [place] [address] Medication Refill Social History Tobacco [...] documented as of this encounter Care Teams Solar Process Engineer Relationship Specialty Start Date End Date Candie Johns, SLAG EXPANDER, DIRECTOR OF SUSTAINABLE DESIGN [address] [place] [address] PCP - General Advanced Practice Nurse 05/16/2008/27 Akhil Taylor MD [address] [place] [address] PCP - General Family Medicine 08/28/22 documented as of this encounter
--- OUTSIDE RECORDS SUMMARY | 2024-12-19 13:25 | XMS_ITS | Encounter Summary ---
Author Organization [facility] Address [address] [place] [address] Phone Care Team Providers Care Modern Dancer Name Role Phone Akhil Taylor MD Primary Care Provider [phone] Reason for Visit * Reason Comments Medication Refill Encounter Details Date Type Department Care Team (Late st Contact Info) Description 10/25/2022 Refill [facility] - Primary Care - [address] [place] [address] Candie Johns APRN, ZACHARY [address] [place] [address] Medication Refill Social History Tobacco [...] documented as of this encounter Care Teams Modern Dancer Relationship Specialty Start Date End Date Akhil Taylor MD [address] [place] [address] PCP - General Family Medicine 08/28/22 documented as of this encounter
--- OUTSIDE RECORDS SUMMARY | 2024-12-19 13:25 | XMS_ITS | Encounter Summary ---
Author Organization [facility] Address [address] [place] [address] Phone Care Team Providers Care Clinical Cytogeneticist Name Role Phone Candie Johns APRN, CNP Primary Care P rovider Akhil Taylor MD Primary Care Provider [phone] Reason for Visit * Reason Comments Medication Refill Encounter Details Date Type Department Care Team (Late st Contact Info) Description 01/19/2021 Refill [facility] - Primary Care - [address] [place] [address] Candie Johns APRN, CNP [address] [place] [address] Medication Refill Social History Tobacco [...] Outpatient Visits 1 month ago Acquired hypothyroidism [facility] Candie Johns APN, CNP 8 months ago Essential hypertension [facility] Candie Johns APN, CNP 2 years ago Anxiety [facility] Rl Alicea MD 2 years ago Essential hypertension [facility] Rl Alicea MD 2 years ago Bronchitis [facility] Rl Shetty MD Upcoming Appointments Future Appointments In 4 months Candie Johns APN DIRECTOR PATIENT ACCOUNTING [facility] - Recent and Past Visits Recent Visits Date Type Provider Dept 11/30/20 Office Visit Candie Johns APN, CNP [facility] 05/16/20 Office Visit Candie Johns APN, CNP [facility] Showing recent visits within past [...] documented as of this encounter Care Teams Clinical Cytogeneticist Relationship Specialty Start Date End Date Candie Johns APRN, ZACHARY [address] [place] [address] PCP - General Advanced Practice Nurse 05/16/2008/27 Akhil Taylor MD [address] [place] [address] [place] [address] PCP - General Family Medicine 08/28/22 documented as of this encounter
--- OUTSIDE RECORDS SUMMARY | 2024-12-19 13:25 | XMS_ITS | Encounter Summary ---
Author Organization [facility] Address [address] [place] [address] Phone Care Team Providers Care Wheel Presser Name Role Phone Candie Johns APRN, CNP Primary Care P rovider Akhil Taylor MD Primary Care Provider [phone] Reason for Visit * Reason Comments Medication Refill Encounter Details Date Type Department Care Team (Late st Contact Info) Description 11/27/2021 Refill [facility] - Primary Care - [address] [place] [address] Candie Johns APRN, CNP [address] [place] [address] Medication Refill Social History Tobacco [...] Unspecified essential hypertension Coronary artery disease of [place] artery of [place] heart with stable angina pectoris (HCC) documented in this encounter Additional Health Concerns Assessment Noted Time PHQ-9 Depression Total Score: 0 06/07/20 21 1:00 PM CDT documented as of this encounter Care Teams Wheel Presser Relationship Specialty Start Date End Date Candie Johns APRN, MANAGER BACKGROUND [address] [facility] [place] [place] [address] PCP - General Advanced Practice Nurse 05/16/2008/27 Akhil Taylor MD [address] [place] [address] PCP - General Family Medicine 08/28/22 documented as of this encounter
--- OUTSIDE RECORDS SUMMARY | 2024-12-19 13:25 | XMS_ITS | Encounter Summary ---
Author Organization [facility] Address [address] [place] [address] Phone Care Team Providers Care Traveling Buyer Name Role Phone Candie Johns APRN, CNP Primary Care P rovider Akhil Taylor MD Primary Care Provider [phone] Reason for Visit * Reason Comments Medication Refill Encounter Details Date Type Department Care Team (Late st Contact Info) Description 03/20/2022 Refill [facility] - Primary Care - [address] [place] [address] Candie Johns APRN, CNP [address] [place] [address] Medication Refill Social History Tobacco [...] documented as of this encounter Care Teams Traveling Buyer Relationship Specialty Start Date End Date Candie Johns APRN, PILLOWCASE SEWER [address] [place] [address] PCP - General Advanced Practice Nurse 05/16/2008/27 Akhil Taylor MD [address] [place] [address] PCP - General Family Medicine 08/28/22 documented as of this encounter
--- OUTSIDE RECORDS SUMMARY | 2024-12-19 13:25 | XMS_ITS | Encounter Summary ---
Author Organization [facility] Address [address] [place] [address] Phone Care Team Providers Care Compressor Operator Name Role Phone Akhil Taylor MD Primary Care Provider [phone] Reason for Visit * Reason Comments Medication Refill Encounter Details Date Type Department Care Team (Late st Contact Info) Description 09/03/2022 Refill [facility] - Primary Care - [address] [place] [address] Candie Johns APRN, ZACHARY [address] [place] [address] Medication Refill [...] PM CST Pt should contact pcp first. GER OUTPATIENT documented in this encounter Plan of Treatment Not on file documented as of this encounter Visit Diagnoses Not on filedocumented in this encounter Additional Health Concerns Assessment Noted Time PHQ-9 Depression Total Score: 0 06/07/20 21 1:00 PM CDT documented as of this encounter Care Teams Compressor Operator Relationship Specialty Start Date End Date Akhil Taylor MD [address] [place] [address] PCP - General Family Medicine 08/28/22 documented as of this encounter
--- OUTSIDE RECORDS SUMMARY | 2024-12-19 13:25 | XMS_ITS | Encounter Summary ---
Author Organization [facility] Address [address] [place] [address] Phone Care Team Providers Care Deck Worker Name Role Phone Candie Johsn APRN, CNP Primary Care P rovider Akhil Taylor MD Primary Care Provider [phone] Reason for Visit * Reason Comments Medication Refill Encounter Details Date Type Department Care Team (Late st Contact Info) Description 03/31/2021 Refill [facility] - Primary Care - [address] [place] [address] Candie Johns APRN, CNP [address] [place] [address] Medication Refill Social History Tobacco [...] documented as of this encounter Care Teams Deck Worker Relationship Specialty Start Date End Date Candie Johns APRN, DIRECTOR OF VENDOR MANAGEMENT [address] [place] [address] PCP - General Advanced Practice Nurse 05/16/2008/27 Akhil Taylor MD [address] [place] [address] PCP - General Family Medicine 08/28/22 documented as of this encounter
--- OUTSIDE RECORDS SUMMARY | 2024-12-19 13:25 | XMS_ITS | Encounter Summary ---
Author Organization [facility] Address [address] [place] [address] Phone Care Team Providers Care Remittance Clerk Name Role Phone Candie Johns APRN, CNP Primary Care P rovider Akhil Taylor MD Primary Care Provider [phone] Reason for Visit * Reason Comments Medication Refill Encounter Details Date Type Department Care Team (Late st Contact Info) Description 01/17/2021 Refill [facility] - Primary Care - [address] [place] [address] Candie Johns APRN, CNP [address] [place] [address] Medication Refill Social History Tobacco [...] Outpatient Visits 1 month ago Acquired hypothyroidism [facility] Candie Johns APN, CNP 8 months ago Essential hypertension [facility] Candie Johns APN, CNP 2 years ago Anxiety [facility] Rl Alicea MD 2 years ago Essential hypertension [facility] Rl Alicea MD 2 years ago Bronchitis [facility] Rl Alicea MD Upcoming Appointments Future Appointments In 4 months Candie Johns APN, CNP [facility] - Recent and Past Visits Recent Visits Date Type Provider Dept 11/30/20 Office Visit Candie Johns APN, CNP [facility] 05/16/20 Office Visit Candie Johns APN, CNP [facility] Showing recent visits within past 460 days [...] documented as of this encounter Care Teams Remittance Clerk Relationship Specialty Start Date End Date Candie Johns APRN, DATA MODELING SPECIALIST [address] [place] [address] PCP - General Advanced Practice Nurse 05/16/2008/27 Akhil Taylor MD [address] [place] [address] PCP - General Family Medicine 08/28/22 documented as of this encounter
--- OUTSIDE RECORDS SUMMARY | 2024-12-19 13:25 | XMS_ITS | Encounter Summary ---
Author Organization [facility] Address [address] [place] [address] Phone Care Team Providers Care Spearer Name Role Phone Candie Johns APRN, CNP Primary Care P rovider Akhil Taylor MD Primary Care Provider [phone] Reason for Visit * Reason Comments Medication Refill Encounter Details Date Type Department Care Team (Late st Contact Info) Description 03/08/2022 Refill [facility] - Primary Care - [address] [place] [address] Candie Johns APRN, CNP [address] [place] [address] Medication Refill Social History Tobacco [...] Unspecified essential hypertension Coronary artery disease of [place] artery of [place] heart with stable angina pectoris (HCC) documented in this encounter Additional Health Concerns Assessment Noted Time PHQ-9 Depression Total Score: 0 06/07/20 21 1:00 PM CDT documented as of this encounter Care Teams Spearer Relationship Specialty Start Date End Date Candie Johns APRN, LEAD GENERATION SPECIALIST [address] [place] [address] PCP - General Advanced Practice Nurse 05/16/2008/27 kAhil Taylor MD [address] [place] [address] PCP - General Family Medicine 08/28/22 documented as of this encounter
--- OUTSIDE RECORDS SUMMARY | 2024-12-19 13:25 | XMS_ITS | Encounter Summary ---
Author Organization [facility] Address [address] [place] [address] Phone Care Team Providers Care Patient Services Specialist Name Role Phone Candie Johns APRN, CNP Primary Care P rovider Akhil Taylor MD Primary Care Provider [phone] Reason for Visit * Reason Comments Medication Refill Encounter Details Date Type Department Care Team (Late st Contact Info) Description 06/22/2021 Refill [facility] - Primary Care - [address] [place] [address] Candie Johns APRN, CNP [address] [place] [address] Medication Refill Social History [...] documented as of this encounter Care Teams Patient Services Specialist Relationship Specialty Start Date End Date Candie Johns APRN, FOOD PREPARATION KITCHEN AIDE [address] [place] [address] PCP - General Advanced Practice Nurse 05/16/2008/27 Akhil Taylor MD [address] [place] [address] PCP - General Family Medicine 08/28/22 documented as of this encounter
--- OUTSIDE RECORDS SUMMARY | 2024-12-19 13:25 | XMS_ITS | Continuity of Care Document ---
Author Organization [facility] Address [address] [place] [address] Phone Care Team Providers Care Slab Worker Name Role Phone Teodoro Kirk MD Unavailable [...] Providers Copied on Encounter [facility], [address], Critical access hospital, tel:[phone] [facility] No Information [address] [place], [id number] . tel: [phone] [facility], [address] [facility] [address] [place] [address], Critical access hospital, tel:[phone] [facility] No Information [address] [place], [place], [id number] . tel: [phone] OFFICE/OUTPA TIENT VISIT EST [facility], [address] [facility] [address] [place] [address], Critical access hospital, tel:[phone] [facility] DJD (degenerative joint disease), lumbarLow back painAcquired spondylolisthesis [address], [place], [place], [id number] . tel: [phone] Referring Provider: Clinton Parsons, [address] [facility] [address], [place], [address] . tel:[phone] [facility], [address] [facility] [address], [place], [address], tel:[phone] [facility] Thoracic or lumbosacral neuritis or radiculitis [address], [place], [place], [id number] . tel: [phone] Family History Family Member Type Diagnosis Age [...]
--- OUTSIDE RECORDS SUMMARY | 2024-12-19 13:25 | XMS_ITS | Encounter Summary ---
Author Organization [facility] Address [address] [place] [address] Phone Care Team Providers Care Refrigeration Lead Name Role Phone Candie Johns APRN, CNP Primary Care P rovider Akhil Taylor MD Primary Care Provider [phone] Reason for Visit * Reason Onset Date Comments Medication Refill Medication Refill 06/04/2021 Encounter Details Date Type Department Care Team (Late st Contact Info) Description 06/03/2021 Refill [facility] - Primary Care - [address] [place] [address] Candie Johns APRN, CNP [address] [place] [address] Medication Refill; Medication Refill Social [...] documented as of this encounter Care Teams Refrigeration Lead Relationship Specialty Start Date End Date Candie Johns, MANAGER RESPIRATORY CARE, TRAPPER BIRD [address] [address] PCP - General Advanced Practice Nurse 05/16/2008/27 Akhil Taylor MD [address] [place] [address] PCP - General Family Medicine 08/28/22 documented as of this encounter
--- OUTSIDE RECORDS SUMMARY | 2024-12-19 13:25 | XMS_ITS | Encounter Summary ---
Author Organization [facility] Address [address] [place] [address] Phone Care Team Providers Care Communications Billing Analyst Name Role Phone Candie Johns APRN, CNP Primary Care P rovider Akhil Taylor MD Primary Care Provider [phone] Reason for Visit * Reason Comments Medication Refill Encounter Details Date Type Department Care Team (Late st Contact Info) Description 11/22/2020 Refill [facility] - Primary Care - [address] [place] [address] Candie Johns APRN, CNP [address] [place] [address] Medication Refill Social History Tobacco [...] CNP - 11/22/2020 3:15 PM CST duplicate TEACHER * Telephone Encounter - Nasreen Mello RN - 11/22/2020 3:01 PM EHS TEACHER Medication failed the protocol, provider to review [...] Outpatient Visits 6 months ago Essential hypertension [facility] Candie Johns APN, CNP 2 years ago Anxiety [facility] - Rl Alicea MD 2 years ago Essential hypertension [facility] Rl Alicea MD 2 years ago Bronchitis [facility] - Rl Alicea MD 2 years ago Essential hypertension [facility] Rl Alicea MD Upcoming Appointments Future Appointments In 1 week Candie Johns APN, CNP [facility] - Recent and Past Visits Recent Visits Date Type Provider Dept 05/16/20 Office Visit Candie Johns APN, CNP [facility] Showing recent visits within past 460 days with a meds authorizing provider and meeting all other requirements Future Appointments Date Type Provider Dept 11/30/20 Appointment Candie Johns APN, CNP [facility] Showing future appointments within next 90 days with a meds authorizing provider and meeting all other requirements Failed - This refill cannot be delegated TEACHER documented in this encounter Plan of Treatment Not on file documented as of this encounter Visit Diagnoses Not on filedocumented in this encounter Additional Health Concerns Assessment Noted Time PHQ-9 Depression Total Score: 0 05/16/20 20 1:00 PM CDT documented as of this encounter Care Teams Communications Billing Analyst Relationship Specialty Start Date End Date Candie Johns APRN, MANAGER AUDIT [address] [place] [address] PCP - General Advanced Practice Nurse 05/16/2008/27 Akhil Taylor MD [address] [place] [address] PCP - General Family Medicine 08/28/22 documented as of this encounter
--- OUTSIDE RECORDS SUMMARY | 2024-12-19 13:25 | XMS_ITS | Encounter Summary ---
Author Organization [facility] Address [address] [place] [address] Phone Care Team Providers Care Wiper Blender Name Role Phone Candie Johns APRN, CNP Primary Care P rovider Akhil Taylor MD Primary Care Provider [phone] Reason for Visit * Reason Comments Medication Refill Encounter Details Date Type Department Care Team (Late st Contact Info) Description 03/22/2022 Refill [facility] - Primary Care - [address] [place] [address] Candie Johns APRN, CNP [address] [place] [address] Medication Refill Social History Tobacco [...] documented as of this encounter Care Teams Wiper Blender Relationship Specialty Start Date End Date Candie Johns APRN, RIVET HOLE PUNCHER [address] [place] [address] PCP - General Advanced Practice Nurse 05/16/2008/27 Akhil Taylor MD [address] [place] [address] PCP - General Family Medicine 08/28/22 documented as of this encounter
--- OUTSIDE RECORDS SUMMARY | 2024-12-19 13:25 | XMS_ITS | Referral Summary ---
Author Organization [facility] [address] Address [address] [place] [address] Phone Care Team Providers Care Operating Room Technician Name Role Phone Gil Dow MD Unavailable [phone] Kerri Zuniga NP Primary Care Provider [phone] Encounters Date Type Department Care Team Description 11/30/2024 10:45 AM HOUSEKEEPING CLEANER Ancillary Procedure [place] [employer] [id number] [address] ICD (implantable cardioverter-defibril lator) in place; Cardiomyopathy, ischemic; 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 11/21/2024 2:15 PM HOUSEKEEPING CLEANER Ancillary Procedure [place] [employer] Technician at [address] [place] [phone] Implantable defibrillator reprogramming/check (Primary Dx); ICD (implantable cardioverter-defibril lator) in place; Cardiomyopathy, ischemic; 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 11/21/2024 2:15 PM HOUSEKEEPING CLEANER Office Visit [place] [employer] [facility] at [address] [place] [phone] Ebony Lewis NP Cardiomyopathy, ischemic (Primary Dx); Coronary artery disease with angina pectoris, unspecified vessel or lesion type, unspecified whether atka or transplanted heart; Essential hypertension; Mixed hyperlipidemia; Implantable defibrillator reprogramming/check; Atherosclerosis of atka arteries of extremities with intermittent claudication, bilateral legs 11/16/2024 3:23 PM HOUSEKEEPING CLEANER - 11/16/2024 11:59 PM HOUSEKEEPING CLEANER Hospital Encounter [facility] Emergency, Room R Discharge Disposition: Discharge to home or self care 11/16/2024 6:29 PM HOUSEKEEPING CLEANER - 11/16/2024 7:29 PM HOUSEKEEPING CLEANER Emergency [facility] Emergency Department [address] [place] [address] Complaint of panic attack (Primary Dx); Anxiety disorder, unspecified type Discharge Disposition: Discharge to home or self care 11/16/2024 3:32 PM HOUSEKEEPING CLEANER - 11/16/2024 4:12 PM HOUSEKEEPING CLEANER Emergency [facility] Emergency Department [address] [place] [address] Discharge Disposition: Left without being seen 10/18/2024 Telephone [place] [employer] at [address] [place] [phone] Austin Perry MA from Last 3 Months Allergies Active Allergy [...] unspecified vessel or lesion type, unspecified whether atka or transplanted heart Take 1 tablet by [...] 10/19/2020 Assessment & Plan (10/19/2020 1:38 PM HOUSEKEEPING CLEANER): Talk to Primary Doctor regarding the Hyperthyroidism [...] 10/19/2020 Assessment & Plan (10/19/2020 1:38 PM HOUSEKEEPING CLEANER): Talk to Primary Doctor regarding the Hyperthyroidism Allergic rhinitis 09/18/2020 Assessment & Plan (04/07/2022 2:57 PM CDT): Continue nasal saline and Flonase and Astelin twice daily may use Hampton gel or Aquaphor apply pea-size amount into each nostril with a cotton tipped applicator, being carefully just to tuck it into each nostril, then massage soft portion of the outer nose to massage the ointment around inside the nose. Cetirizine 10 mg (Zyrtec) daily Assessment & Plan (12/20/2021 1:51 PM HOUSEKEEPING CLEANER): Nasal saline spray (Simply saline, Little Remedies, Merrick, Hampton) 2 second sprays or 2 squeezes into [...] Astelin Assessment & Plan (11/27/2020 8:49 PM HOUSEKEEPING CLEANER): Continue nasal saline followed by Astelin (azelastine) 2 sprays into each nostril while looking down over the sink, do not sniff in or blow nose after use for at least 30 minutes twice daily Assessment & Plan (09/18/2020 10:44 AM HOUSEKEEPING CLEANER): Continue nasal saline and Astelin Continue Cetirizine [...] meal Assessment & Plan (12/20/2021 1:51 PM HOUSEKEEPING CLEANER): Nasal saline spray (Simply saline, Little Remedies, Merrick, Hampton) 2 second sprays or 2 squeezes into [...] days Assessment & Plan (10/19/2020 1:38 PM HOUSEKEEPING CLEANER): Bactroban apply pea-size amount into each nostril [...] Nasal saline spray (Simply saline, Little Remedies, Merrick, Hampton) 2 second sprays or 2 squeezes into [...] Nasal saline spray (Simply saline, Little Remedies, Merrick, Hampton) 2 second sprays or 2 squeezes into [...] 10/12/2019 Assessment & Plan (11/20/2019 2:12 PM HOUSEKEEPING CLEANER): He came down with a respiratory infection [...] Pepcid. Assessment & Plan (09/18/2020 12:53 PM HOUSEKEEPING CLEANER): Continue nasal saline and Astelin Continue Cetirizine [...] 02/08/2019 Assessment & Plan (11/20/2019 2:13 PM HOUSEKEEPING CLEANER): He is no longer seeing Dr. Mckenzie [...] 04/04/2016 Assessment & Plan (11/11/2019 11:12 AM HOUSEKEEPING CLEANER): Blood pressure is in a good range. [...] 11/09/2015 Assessment & Plan (11/11/2019 11:12 AM HOUSEKEEPING CLEANER): Total and LDL cholesterol are low, but HDL is also low. I recommended increased activity level to bring up his HDL. 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 Benjamin. Assessment & Plan (11/11/2019 11:14 AM HOUSEKEEPING CLEANER): He had stents in 2013. He denies [...] disease. Assessment & Plan (11/20/2019 2:16 PM HOUSEKEEPING CLEANER): He does not have a glucometer so [...] CPAP. Assessment & Plan (11/11/2019 11:14 AM HOUSEKEEPING CLEANER): He is noncompliant with CPAP. Assessment & [...] 2004. Assessment & Plan (11/11/2019 11:15 AM HOUSEKEEPING CLEANER): He continues to have problems with anxiety [...] 11/11/2019 Overview (11/11/2019): See office notes. Immunizations Immunization Administration Dates Next Due Influenza, [...] on file Legal Sex Male 12:35 AM HOUSEKEEPING CLEANER Gender Identity Male 04/10/2020 12:52 PM CDT Sexual Orientation Straight 04/10/2020 12 :52 PM CDT Last Filed Vital Signs Vital Sign Reading Time Taken Comments Blood Pressure 122/81 11/21/2024 2:29 PM HOUSEKEEPING CLEANER Pulse 77 11/21/2024 2:29 PM HOUSEKEEPING CLEANER Temperature 36.3 C (97.4 F) 11/16/2024 5:53 PM HOUSEKEEPING CLEANER Respiratory Rate 18 11/21/2024 2:29 PM HOUSEKEEPING CLEANER Oxygen Saturation 98% 11/16/2024 7:28 PM HOUSEKEEPING CLEANER Inhaled Oxygen Concentration - - Weight 80.3 kg (177 lb) 11/21/2024 2:29 PM HOUSEKEEPING CLEANER Height 175.3 cm (5' 9 ) 11/21/2024 2:29 PM HOUSEKEEPING CLEANER Body Mass Index 26.14 11/21/2024 2:29 PM HOUSEKEEPING CLEANER Plan of Treatment Not on file Medical Devices Implanted Type Area Copyright Manager Device Identifier Shelf Expiration Date Model / Serial / Lot daysoftronik Inc Defibrillator Cardiac Acticor 7 Vr-T Dx [id number] - [id number] - [id number] Implanted:Qty: 1 on 03/02/2024 by Vitaliy Donis MD at [facility] ICD Biotronik Inc 10/11/2024 [id number] / [id number] / Biotronik Inc Lead Defibrillator Plexa Promri L65cm L15cm Cardiac Df4 Sterile Latex Free Disposable S Dx [id number] - [id number] - [id number] Implanted:Qty: 1 on 03/02/2024 by Vitaliy Donis MD at [facility] Lead Biotronik Inc 10/11/2025 [id number] / [id number] / Medtronic Inc Tyrx Absorbable Antibacterial Envelope-Large 3.3x2.9in [id number] - [id number] Implanted:Qty: 1 on 03/02/2024 by Vitaliy Donis MD at [facility] Mesh Medtronic Inc 12/10/2024 CMRM [id number] / / [id number] Terum[employer] Fiona Angio-Seal Vip 6fr Closere Device [id number] - [id number] Implanted:Qty: 1 on 02/04/2024 by Doron Benjamin MD at [facility] Other - see comments [employer] Fiona 07/12/2024 [id number] / / [id number] Procedures Procedure Name Priority Date/Time Associated Diagnosis Comments DEVICE CHECK - REMOTE Routine 11/29/2024 3:45 PM HOUSEKEEPING CLEANER ICD (implantable cardioverter-defibri llator) in place Cardiomyopathy, ischemic 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 DEVICE CHECK - IN OFFICE Routine 11/21/2024 2:02 PM HOUSEKEEPING CLEANER ICD (implantable cardioverter-defibri llator) in place Cardiomyopathy, ischemic 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 COLONOSCOPY 08/31/2024 7:30 AM HOUSEKEEPING CLEANER EGFR STAT 02/04/2024 8:32 AM CDT 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) HEMOGLOBIN A1C Routine 11/02/2019 9:00 AM HOUSEKEEPING CLEANER Hypertension associated with diabetes (HCC) Type 2 diabetes mellitus with complication, without long-term current use of insulin (HCC) LIPID PANEL Routine 11/02/2019 9:00 AM HOUSEKEEPING CLEANER Hypertension associated with diabetes (HCC) Mixed hyperlipidemia Type 2 diabetes mellitus with complication, without long-term current use of insulin (HCC) ALBUMIN CREATININE RATIO, URINE Routine 11/02/2019 9:00 AM HOUSEKEEPING CLEANER Hypertension associated with diabetes (HCC) Mixed hyperlipidemia Type 2 diabetes mellitus with complication, without long-term current use of insulin (HCC) PSA SCREEN Routine 03/09/2019 11:25 AM CDT Screening for prostate cancer from Last 3 Months or Most Recently Relevant to Health Maintenance Results * DEVICE CHECK - REMOTE (11/29/2024 3:45 PM HOUSEKEEPING CLEANER) Anatomical Region Laterality Modality Other Narrative 12/02/2024 5:00 PM HOUSEKEEPING CLEANER Images from the original result were not included. 11/30/2024 ZeroMail quarterly remote device check NOTE The following shows snippets from the complete quarterly report. The complete report in its entirety is attached to this Result Text in Beater Out Presenting EGM Last in-office check 11/21/2024 6 month f/u office visit 05/22/2025 SC ICD, implanted 03/02/2024 with 100% est remaining longevity RVp 0% No event episodes recorded since last in-office check on 11/21/2024 Alert Mean PVC/h above limit (> 100 PVC/h) Above limit since Nov 29, 2024, 1:33:02 AM - Last value 226 PVC/h measured on Nov 30, 2024. Reviewed By Kaur Bernal RN BSN ATTESTATION I have reviewed the device interrogation report associated with this encounter in detail. I agree with the documentation recorded/scanned into the electronic medical record. Recommendations: Continue current device follow-up. Doron Benjamin MD us Doron Benjamin MD CV CARDIAC SERVICES PROCEDURES Final Result * DEVICE CHECK - IN OFFICE (11/21/2024 2:02 PM HOUSEKEEPING CLEANER) Anatomical Region Laterality Modality Other Narrative 11/21/2024 3:30 PM HOUSEKEEPING CLEANER Images from the original result were not included. 11/21/2024 ZeroMail in-office device check The complete report is attached to this Result Text in Beater Out Doron Benjamin MD CARDIAC SERVICES PROCEDURES Final Result * Colonoscopy (08/31/2024 7:30 AM HOUSEKEEPING CLEANER) Anatomical Region Laterality Modality Other Narrative Procedure Note Mich Krishnan DO - 08/31/2024 7:30 AM CST [facility] [place] Patient Name: Mervin Marie Procedure Date: 08/31/2024 7:30 AM Date of : 1955 Admit Type: Outpatient Age: 69 Gender: Male Attending MD: Mich Krishnan D.O. Room: [facility] 3 Note Status: Finalized Patient [...] under direct vision. The Pediatric Colonoscope [id number]-[id number] was introducedthrough the anus and advanced to [...] 7:30 AM Procedure Code(s): --- Professional --- 39778, Colonoscopy, flexible; with removal of tumor(s), polyp(s), or other lesion(s) by snare technique --- Technical --- 94498, Colonoscopy, flexible; with removal of tumor(s), polyp(s), or other lesion(s) by snare technique Diagnosis Code(s): --- Professional --- D12.2, Benign neoplasm of ascending colon R19.5, Other fecal abnormalities --- Technical --- D12.2, Benign neoplasm of ascending colon R19.5, Other fecal abnormalities CPT copyright 2020 [employer]. All rights reserved. The codes documented in this report are preliminary and upon icd 9 coder reviewmay be revised to meet current compliance requirements. Recognized by the [place] [employer] for promoting quality [...] MD LAB BLOOD ORDERABLES Final Resu lt [facility] [place] [facility] [place] [address] * Albumin Creatinine Ratio, Urine (11/02/2019 9:00 AM HOUSEKEEPING CLEANER) Creatinine, ur 173 20 - 320 mg/dL [facility] Microalbumin, ur 4.5 See Note: mg/dL [facility] [place] Comment: Reference Range: Reference Range Not established Microalbumin/creat ratio 26 <30 mcg/mg creat [facility] [place] Comment: The ADA defines abnormalities in albumin excretion as follows: Category Result (mcg/mg creatinine) Normal <30 Microalbuminuria 30-299 Clinical albuminuria > OR = 300 The ADA recommends that at least two of three specimens collected within a 3-6 month period be abnormal before considering a patient to be within a diagnostic category. Urine 11/02/2019 9:00 AM HOUSEKEEPING CLEANER 11/02/2019 9:01 AM HOUSEKEEPING CLEANER Narrative [facility] - 11/03/2019 11:51 AM HOUSEKEEPING CLEANER FASTING:YES FASTING: YES Resulting Agency Comment Performing Organization Information: Site ID: [id number] Name: [email or web address] Address: [address] [place] [address] [place] [address] Director: Walker Marquez D.O., MPH us Narayan Wheeler MD LAB URINE ORDERABLES Final Re sult KIRSTIN Dot [place], [place] * (ABNORMAL) Hemoglobin A1c (11/02/2019 9:00 AM HOUSEKEEPING CLEANER) Hgb A1C 7.4(H) <5.7 % of total Hgb [facility] Comment: For someone without known diabetes, [...] children. Blood specimen (specimen) 11/02/2019 9:00 AM HOUSEKEEPING CLEANER 11/02/2019 9:01 AM HOUSEKEEPING CLEANER Narrative [facility] - 11/03/2019 11:51 AM HOUSEKEEPING CLEANER FASTING:YES FASTING: YES Resulting Agency Comment Performing Organization Information: Site ID: [id number] Name: [facility] Address: [address] [address] Director: Walker Marquez D.O., MPH us Narayan Wheeler MD LAB BLOOD ORDERABLES Final Re sult KIRSTIN [facility] - [facility] [place] * (ABNORMAL) Lipid panel (11/02/2019 9:00 AM HOUSEKEEPING CLEANER) Cholesterol 91 <200 mg/dL [facility] [place] HDL 29(L) >40 mg/dL [facility] [place] Triglycerides 208(H) <150 mg/dL [facility] [place] Comment: If a non-fasting specimen was collected, consider repeat triglyceride testing on a fasting specimen if clinically indicated. Luh et al. J. of Clin. Lipidol. 2015;9:129-169. LDL 35 mg/dL (calc) [facility] [place] Comment: Reference range: <100 Desirable range <100 mg/dL for primary prevention; <70 mg/dL for patients with CHD or diabetic patients with > or = 2 CHD risk factors. LDL-C is now calculated using the Davide-Portillo calculation, which is a validated novel method providing better accuracy than the Friedewald equation in the estimation of LDL-C. Davide SS et al. JANICE. 2013;310(19): 9538-0760 (http://education.Blacksumac.Harbor [employer]/faq/UHN720) Chol/HDL ratio 3.1 <5.0 (calc) [facility] [place] Non-HDL, (LDL+VLDL) 62 <130 mg/dL (calc) [facility] [place] Comment: For patients with diabetes plus 1 major ASCVD risk factor, treating to a non-HDL-C goal of <100 mg/dL (LDL-C of <70 mg/dL) is considered a therapeutic option. Blood specimen (specimen) 11/02/2019 9:00 AM HOUSEKEEPING CLEANER 11/02/2019 9:01 AM HOUSEKEEPING CLEANER Narrative [facility] - 11/03/2019 11:51 AM HOUSEKEEPING CLEANER FASTING:YES FASTING: YES Resulting Agency Comment Performing Organization Information: Site ID: [email or web address] Name: [facility] Address: [address] [facility] [place] [address] Director: Walker Marquez D.O., MPH Narayan Wheeler MD LAB BLOOD ORDERABLES Final Re sult Performing Organization Address [facility] Co de Phone Number [facility] [place] * PSA screen (03/09/2019 11:25 AM CDT) PSA 2.9 < OR = 4.0 ng/mL [facility] Comment: The total PSA value from this assay system is standardized against the WHO standard. The test result will be approximately 20% lower when compared to the equimolar-standardized total PSA (Letitia [place]). Comparison of serial PSA results should be [...] Site ID: [email or web address] Name: [facility] Address: [address] [facility] [address] Director: Walker Marquez D.O., MPH Narayan Wheeler MD LAB BLOOD ORDERABLES Final Re sult Performing Organization Address [facility] Co de Phone Number [facility] [place] from Last 3 Months or Most Recently Relevant to Health Maintenance Insurance [employer] Advance Directives For more information, please contact: [phone] * Full Code (Latest Code Status on File) Date Activated Date Inactivated Comments 08/31/2024 7:37 AM 08/31/2024 3:42 PM * Full Code Date Activated Date Inactivated Comments 08/31/2024 7:37 AM 08/31/2024 7:37 AM * Full Code Date Activated Date Inactivated Comments 02/04/2024 10:01 AM 02/05/2024 11:32 AM Care Teams Operating Room Technician Relationship Specialty Start Date End Date Kerri Zuniga NP [address] [place] [address] PCP - General Nurse Practitioner 08/11/24 [place] [address] [place] [address] Consulting Physician Urology 11/30/23
--- OUTSIDE RECORDS SUMMARY | 2024-12-19 13:25 | XMS_ITS | Encounter Summary ---
Author Organization [facility] Address [address] [place] [address] Phone Care Team Providers Care Ingredient Specialist Name Role Phone Akhil Taylor MD Primary Care Provider [phone] Reason for Visit * Reason Comments Medication Refill Encounter Details Date Type Department Care Team (Late st Contact Info) Description 10/20/2022 Refill [facility] - Primary Care - [address] [place] [address] Candie Johns APRN, ZACHARY [address] [place] [address] Medication Refill Social History Tobacco [...] CST Patient no longer under provider/office care. 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
--- OUTSIDE RECORDS SUMMARY | 2024-12-19 13:25 | XMS_ITS | Encounter Summary ---
Author Organization [facility] Address [address] 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
--- OUTSIDE RECORDS SUMMARY | 2024-12-19 13:25 | XMS_ITS | Encounter Summary ---
Author Organization [facility] Address [address] [place] [address] Phone Care Team Providers Care Oracle Bpm Consultant Name Role Phone Akhil Taylor MD Primary Care Provider [phone] Reason for Visit * Reason Comments Medication Refill Encounter Details Date Type Department Care Team (Late st Contact Info) Description 01/01/2023 Refill [facility] - Primary Care - [address] [place] [address] Candie Johns APRN, ZACHARY [address] [place] [address] Medication Refill Social History Tobacco [...] documented as of this encounter Care Teams Oracle Bpm Consultant Relationship Specialty Start Date End Date Akhil Taylor MD [address] [place] [address] PCP - General Family Medicine 08/28/22 documented as of this encounter
--- OUTSIDE RECORDS SUMMARY | 2024-12-19 13:25 | XMS_ITS | Clinical Summary ---
Author Organization [facility] Address [address] [place] [address] Phone Care Team Providers Care Fly Maker Name Role Phone Akhil Taylor MD Primary Care Provider [phone] Allergies Active Allergy Reactions Criticality Noted Date [...] TabletIndications:E ssential hypertension,Villegas ry artery disease of [place] artery [place] heart with stable angina pectoris (HCC) Take [...] TabletIndications:E ssential hypertension,[place]il[place] ry artery disease of [place] artery of [place] heart with stable angina pectoris (HCC) Take [...] will keep his follow ups with Dr. Mceknzie. Leukocytosis 02/08/2019 Iron deficiency anemia 02/08/2019 Overview [...] artery disease of n ative artery of [place] heart with stable angina pectoris Anxiety and depression Resolved Problems Problem Noted Date Diagnosed Date Resolved Date Angioedema 02/08/2019 05/16/2020 Overview (05/16/2020): Tongue Tongue, ER doctor recommended GI follow up. 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) Type 2 diabetes mellitus without complication, without long-term current use of insulin (HCC) Pure hypercholesterolemia 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) HEMOGLOBIN A1C W/ ESTIMATED GLUCOSE Routine 12/13/2021 10:47 AM GENERATOR REBUILDER Essential hypertension Acquired hypothyroidism Coronary artery disease of [place] artery of [place] heart with stable angina pectoris (HCC) Type [...] A1C W/ ESTIMATED GLUCOSE (12/13/2021 10:47 AM GENERATOR REBUILDER) HGB-A1C 6.8(H) 4.0 - 6.0 % 12/13/2021 3:05 PM GENERATOR REBUILDER [facility] Est Average Glucose 148.5 mg/dL 12/13/2021 3:05 PM GENERATOR REBUILDER [facility] Blood Venipuncture / Unknown 12/13/2021 10:47 AM GENERATOR REBUILDER 12/13/2021 10:47 AM GENERATOR REBUILDER Narrative [facility] - 12/13/2021 3:05 PM GENERATOR REBUILDER HEMOGLOBIN A1C: DIABETIC PATIENTS: WELL-CONTROLLED: 6.2 - 7.0 INTERMEDIATE WELL-CONTROLLED: 7.0 - 9.0 POORLY-CONTROLLED: >9.0 us Candie Johns APRN, COKE WHEELER CHEMISTRY ORDER CESAR Final Result [facility] [address] [place] [address] * (ABNORMAL) CMP (COMPREHENSIVE METABOLIC PANEL) (12/13/2021 10:47 AM GENERATOR REBUILDER) SODIUM 141 136 - 144 mmol/L 12/13/2021 3:02 PM [facility] POTASSIUM 4.6 3.5 - 5.1 mmol/L 12/13/2021 3:02 PM [facility] CHLORIDE 104 100 - 110 mmol/L 12/13/2021 3:02 PM [facility] CO2, VENOUS 20(L) 22 - 32 mmol/L 12/13/2021 3:02 PM [facility] ANION GAP 21.6(H) 8.0 - 20.0 mmol/L 12/13/2021 3:02 PM [facility] GLUCOSE 170(H) 70 - 99 mg/dL 12/13/2021 3:02 PM [facility] BUN 21 8 - 23 mg/dL 12/13/2021 3:02 PM [facility] CREATININE, BLOOD 0.97 0.80 - 1.30 mg/dL 12/13/2021 3:02 PM [facility] BUN/CREATININE RATIO 22(H) 12 - 20 ratio 12/13/2021 3:02 PM [facility] TOTAL PROTEIN 7.2 6.0 - 8.3 g/dL 12/13/2021 3:02 PM [facility] ALBUMIN 4.6 3.5 - 5.2 g/dL 12/13/2021 3:02 PM [facility] Comment: The colormetric methods used for the determination of Albumin may lead to falsely elevated test results in patients suffering from renal failure or insufficiency due to interference with other proteins. A/G RATIO 1.8 1.0 - 2.0 12/13/2021 3:02 PM [facility] CALCIUM 9.5 8.9 - 10.3 mg/dL 12/13/2021 3:02 PM [facility] T BILI 0.9 <=1.2 mg/dL 12/13/2021 3:02 PM [facility] SGOT (AST) 22 <=40 U/L 12/13/2021 3:02 PM [facility] SGPT (ALT) 15 <=41 U/L 12/13/2021 3:02 PM GENERATOR REBUILDER [facility] ALKALINE PHOSPHATASE 100 40 - 130 U/L 12/13/2021 3:02 PM GENERATOR REBUILDER [facility] GFR, EST. NONAFRICAN >60 >=60 12/13/2021 3:02 PM GENERATOR REBUILDER [facility] GFR, EST. >60 >=60 022 3:02 PM GENERATOR REBUILDER [facility] Comment: Creatinine Clearance is the preferred criteria for selecting drug dose adjustments in renally impaired patients. The GFR is provided as additional pertinent clinical information. GFR is reported in mL/min/1.73 sq m. IS THE PATIENT REQUIRED TO BE FASTING? No 12/13/2021 3:02 PM GENERATOR REBUILDER [facility] Blood Venipuncture / Unknown 12/13/2021 10:47 AM GENERATOR REBUILDER 12/13/2021 10:47 AM GENERATOR REBUILDER Candie Johns ROLL SCALE MAN, COKE WHEELER CHEMISTRY ORDER CESAR Final Result [facility] [address] [place] [address] * PSA SCREEN (05/25/2020 11:48 AM CDT) PSA SCREEN, TOTAL 3.13 <=4.00 ng/mL 05/25/2020 4:49 PM CDT [facility] Blood Venipuncture / Unknown 05/25/2020 11:48 AM CDT 05/25/2020 11:48 AM CDT Narrative [facility] - 05/25/2020 4:49 PM CDT PSA NOTE: The PSA value should be used in conjunction with information available from clinical evaluation and other diagnostic procedures. us Candie Johns ROLL SCALE MAN, COKE WHEELER CHEMISTRY ORDER CESAR Final Result [facility] [address] [place] [address] * HM COLONOSCOPY (01/13/2011) Rl Sharma MD PROCEDURE/MINOR SURGICAL ORDE RAYO Final Result from Last 3 Months or Most Recently Relevant to Health Maintenance Insurance MEDICARE C [employer] Advance Directives Documents on File Type Date Recorded Patient Centrifugal Operator Expl anation Power of Music Professionals for Health Care 03/04/2019 9:37 AM POA-HC [...] 05/19/2017 8:43 AM 05/20/2017 1:11 AM CPR-Full Trini tment: FULL ARREST: Attempt Resuscitation/CPR wit intubation and mechanical ventilation. PRE-ARREST: Use entire range of life support measures to stabilize the patient. Care Teams Fly Maker Relationship Specialty Start Date End Date Akhil Taylor MD [address] [place] [id number] PCP - General Family Medicine 08/28/22
--- OUTSIDE RECORDS SUMMARY | 2024-12-19 13:25 | XMS_ITS | Encounter Summary ---
Author Organization [facility] Address [address] [place] [address] Phone Care Team Providers Care Registered Nurse Hh Case Manager Name Role Phone Akhil Taylor MD Primary Care Provider Reason for Visit * Reason Comments Medication Refill Encounter Details Date Type Department Care Team (Late st Contact Info) Description 10/28/2024 Refill [facility] [address] [place] [id number] Mundo Agosto, ADJUNCT PHYSICAL EDUCATION INSTRUCTOR, ANNEALER HELPER [address] [place] [address] Medication Refill Social History Tobacco Use Types [...] documented as of this encounter Care Teams Registered Nurse Hh Case Manager Relationship Specialty Start Date End Date Akhil Taylor MD [address] [place] [address] PCP - General Family Medicine 08/28/22 documented as of this encounter
[2024-12-19 18:44] LABS: Hematocrit 35.3 % (42.0-52.0); Hemoglobin 11.5 g/dL (14.0-18.0); Mean Corpuscular HGB Conc 32.6 g/dl (32-36); Mean Corpuscular Hemoglobin 29.7 pg (26-34); Mean Corpuscular Volume 91.2 fl (80-100); Mean Platelet Volume 8.8 fl (7.4-10.4); Platelet Count Result 524 k/mm3 (150-375); Red Blood Count 3.87 M/mm3 (4.6-6.20); Red Cell Distribution Width 15.3 % (11.5-14.5); White Blood Count 10.2 K/mm3 (4.5-10.0)
[2024-12-19 18:52] LABS: Alanine Aminotransferase 22 U/L (6-50); Albumin Level 4.4 g/dL (3.5-5.1); Alkaline Phosphatase 79 U/L (38-126); Anion Gap 12 mmol/L (4-12); Aspartate Amino Transferase 165 U/L (17-59); Bilirubin,Total 2.3 mg/dL (0.2-1.3); Blood Urea Nitrogen 20 mg/dL (9-20); Calcium 9.7 mg/dL (8.4-10.2); Carbon Dioxide 25 mmol/L (22-30); Chloride 98 mmol/L (98-107); Estimated Glomerular Filt Rate > 60; Glucose 122 mg/dL (65-110); Potassium 4.2 mmol/L (3.4-5.0); Sodium 135 mmol/L (137-145)
== END 2024-12-19 11:10 | disposition home or self-care (01) ==
LOC: ANHBWCLAB 11:11
PROVIDERS: PCP Nurse Practitioner Adult Health; Visit Provider Nurse Practitioner Adult Health
DX: S32.2XXA Fracture of coccyx, initial encounter for closed fracture (principal); M51.379 Other intervertebral disc degeneration, lumbosacral region without mention of lumbar back pain or lower extremity pain; M47.897 Other spondylosis, lumbosacral region; R17 Unspecified jaundice; I10 Essential (primary) hypertension; W19.XXXA Unspecified fall, initial encounter
CPT/HCPCS: 36415; 72100; 72220; 80048; 80076; 85027

== ENCOUNTER 2024-12-20 09:34 | Outpatient (CLI) | payer OTHER, SELFPAY ==
--- NOTE | ~2024-12-20 | CT_ITS ---
CT abdomen pelvis wo con Ordering provider: Kerri Zuniga APRN History: 69 years Male with . R17 - Unspecified jaundice . Comparison: None. Technique: CT abdomen and pelvis without IV and without oral contrast. Automated exposure control and iterative reconstruction technique were employed. The dose-length product was 768.96 mGy-cm. Findings: VISUALIZED LOWER CHEST: Focal atelectatic changes in the left lung base. Possible nodule in the right lung base measuring 7 mm. 6 months follow-up CT advised. UPPER ABDOMINAL ORGANS: Liver: Normal. Gallbladder: Cholelithiasis. Spleen: Normal. Stomach/duodenum: Normal. Pancreas: Calcification in the area of the head of the pancreas which may be a stone. Adrenals: Normal. Kidneys: Tiny stone in the right kidney mid pole.. PELVIC ORGANS: The bladder is underfilled. BOWEL AND MESENTERY: Colon: No evidence of diverticulitis. Fecal material is loaded in the colon. Normal appendix. Small Bowel: Normal. No obstruction. Peritoneum/mesentery: No free air or free fluid. No mesenteric lymphadenopathy. RETROPERITONEUM: Mild atheromatous disease of the abdominal aorta. No retroperitoneal lymphadenopat hy. Small para-aortic lymph nodes. MUSCULOSKELETAL: Superficial soft tissues: Hematoma is seen in the left buttock measuring 6.6 x 4.4 cm. Follow-up advi sed. Bilateral fat containing inguinal hernias. Otherwise, The superficial soft tissues are normal. Bones: Minimal anterolisthesis at the level of L5-S1. Age appropriate degenerative changes of the spi ne. Bilateral sacroiliacs. IMPRESSION: 1. Stone seen in the pancreatic area which may be a stone in the distal end of the CBD. The CBD was not well demonstrated on this study. Ultrasound versus ERCP may be helpful for further evaluation. 2. Cholelithiasis. 3. Tiny stone in the right kidney midpole. 4. Constipation. 5. Hematoma in the left buttock. Follow-up advised 6. Bilateral fat containing inguinal hernias. Reviewed, dictated and finalized at location A. IMPRESSION: 1. Stone seen in the pancreatic area which may be a stone in the distal end of the CBD. The CBD was not well demonstrated on this study. Ultrasound versus ER CP may be helpful for further evaluation. 2. Cholelithiasis. 3. Tiny stone in the right kidney midpole. 4. Constipation. 5. Hematoma in the left buttock. Follow-up advised 6. Bilateral fat containing inguinal hernias.
--- OUTSIDE RECORDS SUMMARY | 2024-12-20 10:34 | XMS_ITS | Encounter Summary ---
Author Organization [facility] Address [address] [place] [address] Phone Care Team Providers Care Rotary Drier Feeder Name Role Phone Akhil Taylor MD Primary Care Provider [phone] Reason for Visit * Reason Comments Medication Refill Encounter Details Date Type Department Care Team (Late st Contact Info) Description 01/01/2023 Refill [facility] - Primary Care - [address] [place] [address] Candie Johns APRN, ZACHARY [address] [place] [address] Medication Refill Social History Tobacco [...] documented as of this encounter Care Teams Rotary Drier Feeder Relationship Specialty Start Date End Date Akhil Taylor MD [address] [place] [address] PCP - General Family Medicine 08/28/22 documented as of this encounter
--- OUTSIDE RECORDS SUMMARY | 2024-12-20 10:34 | XMS_ITS | Encounter Summary ---
Author Organization [facility] Address [address] [place] [address] Phone Care Team Providers Care Mastic Sprayer Name Role Phone Candie Johns APRN, CNP Primary Care P rovider Akhil Taylor MD Primary Care Provider [phone] Reason for Visit * Reason Comments Medication Refill Encounter Details Date Type Department Care Team (Late st Contact Info) Description 11/24/2020 Refill [facility] Care - [address] [place] [address] Candie Johns APRN, CNP [address] [place] [address] Medication Refill Social History Tobacco [...] CNP - 11/26/2020 12:11 PM CST duplicate RAL II FARMWORKER * Telephone Encounter - Nasreen Mello RN - 11/26/2020 11:58 AM GENERAL II FARMWORKER Medication failed the protocol, provider to review [...] Outpatient Visits 6 months ago Essential hypertension [facility] Candie Johns APN, CNP 2 years ago Anxiety [facility] [place] MD 2 years ago Essential hypertension [facility] Rl [place] MD 2 years ago Bronchitis [facility] [place] MD 2 years ago Essential hypertension [facility] Rl [place] MD Upcoming Appointments Future Appointments In 4 days Candie Johns APN, CNP [facility] - Recent and Past Visits Recent Visits Date Type Provider Dept 05/16/20 Office Visit Candie Johns APN, CNP [facility] Showing recent visits within past 460 days with a meds authorizing provider and meeting all other requirements Future Appointments Date Type Provider Dept 11/30/20 Appointment Candie Johns APN, CNP [facility] Showing future appointments within next 90 days with a meds authorizing provider and meeting all other requirements Failed - This refill cannot be delegated RAL II FARMWORKER documented in this encounter Plan of Treatment Not on file documented as of this encounter Visit Diagnoses Not on filedocumented in this encounter Additional Health Concerns Assessment Noted Time PHQ-9 Depression Total Score: 0 05/16/20 20 1:00 PM CDT documented as of this encounter Care Teams Mastic Sprayer Relationship Specialty Start Date End Date Candie Johns APRN, PHYSICIAN COMPENSATION ANALYST [address] [place] [address] PCP - General Advanced Practice Nurse 05/16/2008/27 Akhil Taylor MD [address] [place] [address] PCP - General Family Medicine 08/28/22 documented as of this encounter
--- OUTSIDE RECORDS SUMMARY | 2024-12-20 10:34 | XMS_ITS | Encounter Summary ---
Author Organization [facility] Address [address] [place] [address] Phone Care Team Providers Care Dealer Compliance Representative Name Role Phone Akhil Taylor MD Primary Care Provider [phone] Reason for Visit * Reason Comments Medication Refill Encounter Details Date Type Department Care Team (Late st Contact Info) Description 10/25/2022 Refill [facility] - Primary Care - [address] [place] [address] Candie Johns APRN, ZACHARY [address] [place] [address] Medication Refill Social History Tobacco [...] documented as of this encounter Care Teams Dealer Compliance Representative Relationship Specialty Start Date End Date Akhil Taylor MD [address] [place] [address] PCP - General Family Medicine 08/28/22 documented as of this encounter
--- OUTSIDE RECORDS SUMMARY | 2024-12-20 10:34 | XMS_ITS | Clinical Summary ---
Author Organization [facility] Address [address] [place] [address] Phone Care Team Providers Care Cabin Cleaning Supervisor Name Role Phone Akhil Taylor MD Primary Care Provider [phone] Allergies Active Allergy Reactions Criticality Noted Date [...] TabletIndications:E ssential hypertension,Villegas ry artery disease of [place] artery of [place] heart with stable angina pectoris (HCC) Take [...] TabletIndications:E ssential hypertension,[place]illeg[place] ry artery disease of [place] artery of [place] heart with stable angina pectoris (HCC) Take [...] artery disease of [place] ative artery of [place] heart with stable angina pectoris Anxiety and depression Resolved Problems Problem Noted Date Diagnosed Date Resolved Date Angioedema 02/08/2019 05/16/2020 Overview (05/16/2020): Tongue Tongue, ER doctor recommended GI follow up. Bronchitis 09/24/2018 05/16/2020 Left elbow pain 05/19/2017 05/16/2020 Encounters Date Type Department Care Team Description 10/28/2024 Refill [facility] [address] [place] [address] Mundo Agosto, FINANCE EFFECTIVENESS MANAGER, AMMONIA NITRATE OPERATOR Medication Refill from Last 3 Months Immunizations [...] (COMPREHENSIVE METABOLIC PANEL) Routine 12/13/2021 10:47 AM WIRE SAWYER Essential hypertension Acquired hypothyroidism Coronary artery disease of [place] artery of [place] heart with stable angina pectoris (HCC) Type 2 diabetes mellitus without complication, without long-term current use of insulin (HCC) Pure hypercholesterolemia 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) HEMOGLOBIN A1C W/ ESTIMATED GLUCOSE Routine 12/13/2021 10:47 AM WIRE SAWYER Essential hypertension Acquired hypothyroidism Coronary artery disease of [place] artery of [place] heart with stable angina pectoris (HCC) Type [...] A1C W/ ESTIMATED GLUCOSE (12/13/2021 10:47 AM WIRE SAWYER) HGB-A1C 6.8(H) 4.0 - 6.0 % 12/13/2021 3:05 PM WIRE SAWYER [facility] Est Average Glucose 148.5 mg/dL 12/13/2021 3:05 PM WIRE SAWYER [facility] Blood Venipuncture / Unknown 12/13/2021 10:47 AM WIRE SAWYER 12/13/2021 10:47 AM WIRE SAWYER Narrative [facility] - 12/13/2021 3:05 PM WIRE SAWYER HEMOGLOBIN A1C: DIABETIC PATIENTS: WELL-CONTROLLED: 6.2 - 7.0 INTERMEDIATE WELL-CONTROLLED: 7.0 - 9.0 POORLY-CONTROLLED: >9.0 us Candie Johns APRN, AMMONIA NITRATE OPERATOR CHEMISTRY ORDER CESAR Final Result [facility] [address] [place] [address] * (ABNORMAL) CMP (COMPREHENSIVE METABOLIC PANEL) (12/13/2021 10:47 AM WIRE SAWYER) SODIUM 141 136 - 144 mmol/L 12/13/2021 3:02 PM [facility] POTASSIUM 4.6 3.5 - 5.1 mmol/L 12/13/2021 3:02 PM [facility] CHLORIDE 104 100 - 110 mmol/L 12/13/2021 3:02 PM [facility] CO2, VENOUS 20(L) 22 - 32 mmol/L 12/13/2021 3:02 PM [facility] ANION GAP 21.6(H) 8.0 - 20.0 mmol/L 12/13/2021 3:02 PM [facility] GLUCOSE 170(H) 70 - 99 mg/dL 12/13/2021 3:02 PM [facility] BUN 21 8 - 23 mg/dL 12/13/2021 3:02 PM [facility] CREATININE, BLOOD 0.97 0.80 - 1.30 mg/dL 12/13/2021 3:02 PM [facility] BUN/CREATININE RATIO 22(H) 12 - 20 ratio 12/13/2021 3:02 PM [facility] TOTAL PROTEIN 7.2 6.0 - 8.3 g/dL 12/13/2021 3:02 PM [facility] ALBUMIN 4.6 3.5 - 5.2 g/dL 12/13/2021 3:02 PM [facility] Comment: The colormetric methods used for the determination of Albumin may lead to falsely elevated test results in patients suffering from renal failure or insufficiency due to interference with other proteins. A/G RATIO 1.8 1.0 - 2.0 12/13/2021 3:02 PM [facility] CALCIUM 9.5 8.9 - 10.3 mg/dL 12/13/2021 3:02 PM [facility] T BILI 0.9 <=1.2 mg/dL 12/13/2021 3:02 PM [facility] SGOT (AST) 22 <=40 U/L 12/13/2021 3:02 PM [facility] SGPT (ALT) 15 <=41 U/L 12/13/2021 3:02 PM WIRE SAWYER [facility] ALKALINE PHOSPHATASE 100 40 - 130 U/L 12/13/2021 3:02 PM WIRE SAWYER [facility] GFR, EST. NONAFRICAN >60 >=60 12/13/2021 3:02 PM WIRE SAWYER [facility] GFR, EST. >60 >=60 022 3:02 PM WIRE SAWYER [facility] Comment: Creatinine Clearance is the preferred criteria for selecting drug dose adjustments in renally impaired patients. The GFR is provided as additional pertinent clinical information. GFR is reported in mL/min/1.73 sq m. IS THE PATIENT REQUIRED TO BE FASTING? No 12/13/2021 3:02 PM WIRE SAWYER [facility] Blood Venipuncture / Unknown 12/13/2021 10:47 AM WIRE SAWYER 12/13/2021 10:47 AM WIRE SAWYER Candie Johns FINANCE EFFECTIVENESS MANAGER, AMMONIA NITRATE OPERATOR CHEMISTRY ORDER CESAR Final Result [facility] [address] [place] [address] * PSA SCREEN (05/25/2020 11:48 AM CDT) PSA SCREEN, TOTAL 3.13 <=4.00 ng/mL 05/25/2020 4:49 PM CDT [facility] Blood Venipuncture / Unknown 05/25/2020 11:48 AM CDT 05/25/2020 11:48 AM CDT Narrative [facility] - 05/25/2020 4:49 PM CDT PSA NOTE: The PSA value should be used in conjunction with information available from clinical evaluation and other diagnostic procedures. us Candie Johns FINANCE EFFECTIVENESS MANAGER, AMMONIA NITRATE OPERATOR CHEMISTRY ORDER CESAR Final Result [facility] [address] [place] [address] * HM COLONOSCOPY (01/13/2011) Rl Sharma MD PROCEDURE/MINOR SURGICAL ORDE RAYO Final Result from Last 3 Months or Most Recently Relevant to Health Maintenance Insurance MEDICARE C [employer] Advance Directives Documents on File Type Date Recorded Patient Private Investigator Expl anation Power of Ophthalmic Technologist for Health Care 03/04/2019 9:37 AM POA-HC [...] measures to stabilize the patient. Care Teams Cabin Cleaning Supervisor Relationship Specialty Start Date End Date Akhil Taylor MD [address] [place] [id number] PCP - General Family Medicine 08/28/22
--- OUTSIDE RECORDS SUMMARY | 2024-12-20 10:34 | XMS_ITS | Encounter Summary ---
Author Organization [facility] Address [address] [place] [address] Phone Care Team Providers Care Vending Machine Servicer Name Role Phone Candie Johns APRN, CNP Primary Care P rovider Akhil Taylor MD Primary Care Provider [phone] Reason for Visit * Reason Comments Medication Refill Encounter Details Date Type Department Care Team (Late st Contact Info) Description 11/27/2021 Refill [facility] - Primary Care - [address] [place] [address] Candie Johns APRN, CNP [address] [place] [address] Medication Refill Social History Tobacco [...] Unspecified essential hypertension Coronary artery disease of [place] artery of [place] heart with stable angina pectoris (HCC) documented in this encounter Additional Health Concerns Assessment Noted Time PHQ-9 Depression Total Score: 0 06/07/20 21 1:00 PM CDT documented as of this encounter Care Teams Vending Machine Servicer Relationship Specialty Start Date End Date Candie Johns APRN, OPERATIONS MGR [address] [place] [facility] [place] [address] PCP - General Advanced Practice Nurse 05/16/2008/27 Akhil Taylor MD [address] [place] [address] PCP - General Family Medicine 08/28/22 documented as of this encounter
--- OUTSIDE RECORDS SUMMARY | 2024-12-20 10:34 | XMS_ITS | Encounter Summary ---
Author Organization [facility] Address [address] [place] [address] Phone Care Team Providers Care Quirk Sander Name Role Phone Akhil Taylor MD Primary Care Provider Reason for Visit * Reason Comments Medication Refill Encounter Details Date Type Department Care Team (Late st Contact Info) Description 09/03/2022 Refill [facility] - Primary Care - [address] [place] [address] Candie Johns APRN, ZACHARY [address] [place] [address] Medication Refill Social History Tobacco [...] 1000 MG Tablet 180 Tablet 0 08/28/2022 CUTTER documented in this encounter Plan of Treatment Not on file documented as of this encounter Visit Diagnoses Not on filedocumented in this encounter Additional Health Concerns Assessment Noted Time PHQ-9 Depression Total Score: 0 06/07/20 21 1:00 PM CDT documented as of this encounter Care Teams Quirk Sander Relationship Specialty Start Date End Date Akhil Taylor MD [address] [place] [address] PCP - General Family Medicine 08/28/22 documented as of this encounter
--- OUTSIDE RECORDS SUMMARY | 2024-12-20 10:34 | XMS_ITS | Encounter Summary ---
Author Organization [facility] Address [address] [place] [address] Phone Care Team Providers Care Knockdown Man Name Role Phone Akhil aTylor MD Primary Care Provider Reason for Visit * Reason Comments Medication Refill Encounter Details Date Type Department Care Team (Late st Contact Info) Description 10/20/2022 Refill [facility] - Primary Care - [address] [place] [address] Candie Johns APRN, ZACHARY [address] [place] [address] Medication Refill Social History Tobacco [...] CST Patient no longer under provider/office care. ENTICE LINEMAN THIRD STEP documented in this encounter Plan of Treatment Not on file documented as of this encounter Visit Diagnoses Diagnosis Pure hypercholesterolemia Hyperlipidemia associated with type 2 diabetes mellitus (HCC) documented in this encounter Additional Health Concerns Assessment Noted Time PHQ-9 Depression Total Score: 0 06/07/20 21 1:00 PM CDT documented as of this encounter Care Teams Knockdown Man Relationship Specialty Start Date End Date Akhil Taylor MD [address] [place] [address] PCP - General Family Medicine 08/28/22 documented as of this encounter
--- OUTSIDE RECORDS SUMMARY | 2024-12-20 10:34 | XMS_ITS | Encounter Summary ---
Author Organization [facility] Address [address] [place] [address] Phone Care Team Providers Care Experimental Machinist Name Role Phone Akhil Taylor MD Primary Care Provider [phone] Reason for Visit * Reason Comments Medication Refill Encounter Details Date Type Department Care Team (Late st Contact Info) Description 09/03/2022 Refill [facility] - Primary Care - [address] [place] [address] Candie Johns APRN, ZACHARY [address] [place] [address] Medication Refill Social History Tobacco [...] PM CST Pt should contact pcp first. Y REP documented in this encounter Plan of Treatment Not on file documented as of this encounter Visit Diagnoses Not on filedocumented in this encounter Additional Health Concerns Assessment Noted Time PHQ-9 Depression Total Score: 0 06/07/20 21 1:00 PM CDT documented as of this encounter Care Teams Experimental Machinist Relationship Specialty Start Date End Date Akhil Taylor MD [address] [place] [address] PCP - General Family Medicine 08/28/22 documented as of this encounter
--- OUTSIDE RECORDS SUMMARY | 2024-12-20 10:34 | XMS_ITS | Encounter Summary ---
Author Organization [facility] Address [address] [place] [address] Phone Care Team Providers Care Analysis Specialist Name Role Phone Candie Johns APRN, CNP Primary Care P rovider Akhil Taylor MD Primary Care Provider [phone] Reason for Visit * Reason Comments Medication Refill Encounter Details Date Type Department Care Team (Late st Contact Info) Description 11/30/2020 Refill [facility] - Primary Care - [address] [place] [address] Candie Johns APRN, CNP [address] [place] [address] Medication Refill Social History Tobacco [...] COVID-19? No / Unsure 11/30/2020 12:44 PM OCCUPATIONAL HEALTH SPECIALIST documented as of this encounter Plan of Treatment Not on file documented as of this encounter Visit Diagnoses Not on filedocumented in this encounter Additional Health Concerns Assessment Noted Time PHQ-9 Depression Total Score: 0 05/16/20 20 1:00 PM CDT documented as of this encounter Care Teams Analysis Specialist Relationship Specialty Start Date End Date Candie Johns APRN, LIVESTOCK AGENT [address] [place] [address] PCP - General Advanced Practice Nurse 05/16/2008/27 Akhil Taylor MD [address] [place] [address] PCP - General Family Medicine 08/28/22 documented as of this encounter
--- OUTSIDE RECORDS SUMMARY | 2024-12-20 10:34 | XMS_ITS | Encounter Summary ---
Author Organization [facility] Address [address] [place] [address] Phone Care Team Providers Care Basic Acoustic Analyst Name Role Phone Candie Johns APRN, CNP Primary Care P rovider Akhil Taylor MD Primary Care Provider [phone] Reason for Visit * Reason Comments Medication Refill Encounter Details Date Type Department Care Team (Late st Contact Info) Description 11/22/2020 Refill [facility] - Primary Care - [address] [place] [address] Candie Johns APRN, CNP [address] [place] [address] Medication Refill Social History Tobacco [...] CNP - 11/22/2020 3:15 PM CST duplicate R TREATMENT PLANT REPAIRER * Telephone Encounter - Nasreen Mello RN - 11/22/2020 3:01 PM WATER TREATMENT PLANT REPAIRER Medication failed the protocol, provider to review [...] 6 months ago Essential hypertension [facility] Candie Johns APN, CNP 2 years ago Anxiety [facility] - Rl Alicea MD 2 years ago Essential hypertension [facility] Rl Alicea MD 2 years ago Bronchitis [facility] - Rl Alicea MD 2 years ago Essential hypertension [facility] Rl Alicea MD Upcoming Appointments Future Appointments In 1 week Candie Johns APN, CNP [facility] - Recent and Past Visits Recent Visits Date Type Provider Dept 05/16/20 Office Visit Candie Johns APN, CNP [facility] Showing recent visits within past 460 days with a meds authorizing provider and meeting all other requirements Future Appointments Date Type Provider Dept 11/30/20 Appointment Candie Johns APN, CNP [facility] Showing future appointments within next 90 days with a meds authorizing provider and meeting all other requirements Failed - This refill cannot be delegated R TREATMENT PLANT REPAIRER documented in this encounter Plan of Treatment Not on file documented as of this encounter Visit Diagnoses Not on filedocumented in this encounter Additional Health Concerns Assessment Noted Time PHQ-9 Depression Total Score: 0 05/16/20 20 1:00 PM CDT documented as of this encounter Care Teams Basic Acoustic Analyst Relationship Specialty Start Date End Date Candie Johns APRN, SALES REPRESENTATIVE [employer] [address] [place] [address] PCP - General Advanced Practice Nurse 05/16/2008/27 Akhil Taylor MD [address] [place] [address] PCP - General Family Medicine 08/28/22 documented as of this encounter
--- OUTSIDE RECORDS SUMMARY | 2024-12-20 10:35 | XMS_ITS | Encounter Summary ---
Author Organization [facility] Address [address] [place] [address] Phone Care Team Providers Care Lead Developer Name Role Phone Candie Johns APRN, CNP Primary Care P rovider Akhil Taylor MD Primary Care Provider [phone] Reason for Visit * Reason Comments Medication Refill Encounter Details Date Type Department Care Team (Late st Contact Info) Description 03/22/2022 Refill [facility] - Primary Care - [address] [place] [address] Candie Johns APRN, CNP [address] [place] [address] Medication Refill Social History Tobacco [...] documented as of this encounter Care Teams Lead Developer Relationship Specialty Start Date End Date Candie Johns APRN, GEOLOGY ASSOCIATE [address] [place] [address] PCP - General Advanced Practice Nurse 05/16/2008/27 Akhil Taylor MD [address] [place] [address] PCP - General Family Medicine 08/28/22 documented as of this encounter
--- OUTSIDE RECORDS SUMMARY | 2024-12-20 10:35 | XMS_ITS | Encounter Summary ---
Author Organization [facility] Address [address] [place] [address] Phone Care Team Providers Care Television Installer Helper Name Role Phone Candie Johns APRN, CNP Primary Care P rovider Akhil Taylor MD Primary Care Provider Reason for Visit * Reason Onset Date Comments Medication Refill Medication Refill 06/04/2021 Encounter Details Date Type Department Care Team (Late st Contact Info) Description 06/03/2021 Refill [facility] - Primary Care - [address] [place] [address] Candie Johns APRN, CNP [address] [place] [address] Medication Refill; Medication Refill Social [...] documented as of this encounter Care Teams Television Installer Helper Relationship Specialty Start Date End Date Candie Johns, CLINICAL RESEARCH SCIENTIST, BOILER PLANT OPERATOR [address] [place] [address] PCP - General Advanced Practice Nurse 05/16/2008/27 Akhil Taylor MD [address] [place] [address] PCP - General Family Medicine 08/28/22 documented as of this encounter
--- OUTSIDE RECORDS SUMMARY | 2024-12-20 10:35 | XMS_ITS | Encounter Summary ---
Author Organization [facility] Address [address] [place] [address] Phone Care Team Providers Care Hand Silvering Supervisor Name Role Phone Candie Johns APRN, CNP Primary Care P rovider Akhil Taylor MD Primary Care Provider [phone] Reason for Visit * Reason Comments Medication Refill Encounter Details Date Type Department Care Team (Late st Contact Info) Description 03/20/2022 Refill [facility] - Primary Care - [address] [place] [address] Candie Johns APRN, CNP [address] [place] [address] Medication Refill Social History Tobacco [...] documented as of this encounter Care Teams Hand Silvering Supervisor Relationship Specialty Start Date End Date Candie Johns APRN, CABLE LAYER [address] [place] [address] PCP - General Advanced Practice Nurse 05/16/2008/27 Akhil Taylor MD [address] [place] [address] PCP - General Family Medicine 08/28/22 documented as of this encounter
--- OUTSIDE RECORDS SUMMARY | 2024-12-20 10:35 | XMS_ITS | Encounter Summary ---
Author Organization [facility] Address [address] [place] [address] Phone Care Team Providers Care Auto Rental Clerk Name Role Phone Candie Johns APRN, CNP Primary Care P rovider Akhil Taylor MD Primary Care Provider [phone] Reason for Visit * Reason Comments Medication Refill Encounter Details Date Type Department Care Team (Late st Contact Info) Description 05/08/2021 Refill [facility] - Primary Care - [address] [place] [address] Candie Johns APRN, CNP [address] [place] [address] Medication Refill Social History Tobacco [...] documented as of this encounter Care Teams Auto Rental Clerk Relationship Specialty Start Date End Date Candie Johns, UNIT AID, KILN MECHANIC [address] [place] [address] PCP - General Advanced Practice Nurse 05/16/2008/27 Akhil Taylor MD [address] [place] [address] PCP - General Family Medicine 08/28/22 documented as of this encounter
--- OUTSIDE RECORDS SUMMARY | 2024-12-20 10:35 | XMS_ITS | Encounter Summary ---
Author Organization [facility] Address [address] [place] [address] Phone Care Team Providers Care Book Canvasser Name Role Phone Candie Johns APRN, CNP Primary Care P rovider Akhil Taylor MD Primary Care Provider [phone] Reason for Visit * Reason Comments Medication Refill Encounter Details Date Type Department Care Team (Late st Contact Info) Description 01/19/[address] [facility] - Primary Care - [address] [place] [address] Candie Johns APRN, CNP [address] [place] [address] Medication Refill Social History Tobacco [...] Outpatient Visits 1 month ago Acquired hypothyroidism [facility] Candie Johns APN, CNP 8 months ago Essential hypertension [facility] Candie Johns APN, CNP 2 years ago Anxiety [facility] Rl Alicea MD 2 years ago Essential hypertension [facility] Rl Alicea MD 2 years ago Bronchitis [facility] Rl Shetty MD Upcoming Appointments Future Appointments In 4 months Candie Johns APN AUTOMOBILE DETAILER [facility] - Recent and Past Visits Recent Visits Date Type Provider Dept 11/30/20 Office Visit Candie Johns APN, CNP [facility] 05/16/20 Office Visit Candie Johns APN, CNP [facility] Showing recent visits within past 460 [...] documented as of this encounter Care Teams Book Canvasser Relationship Specialty Start Date End Date Candie Johns APRN, ZACHARY [address] [place] [address] PCP - General Advanced Practice Nurse 05/16/2008/27 Akhil Taylor MD [address] [place] [address] [place] [address] PCP - General Family Medicine 08/28/22 documented as of this encounter
--- OUTSIDE RECORDS SUMMARY | 2024-12-20 10:35 | XMS_ITS | Encounter Summary ---
Author Organization [facility] Address [address] [place] [address] Phone Care Team Providers Care Credit Representative Name Role Phone Candie Johns APRN, CNP Primary Care P rovider Akhil Taylor MD Primary Care Provider [phone] Reason for Visit * Reason Comments Medication Refill Encounter Details Date Type Department Care Team (Late st Contact Info) Description 01/17/2021 Refill [facility] - Primary Care - [address] [place] [address] Candie Johns APRN, CNP [address] [place] [address] Medication Refill Social History Tobacco [...] Outpatient Visits 1 month ago Acquired hypothyroidism [facility] Candie Johns APN, CNP 8 months ago Essential hypertension [facility] Candie Johns APN, CNP 2 years ago Anxiety [facility] Rl Alicea MD 2 years ago Essential hypertension [facility] Rl Alicea MD 2 years ago Bronchitis [facility] Rl Alicea MD Upcoming Appointments Future Appointments In 4 months Candie Johns APN, CNP [facility] - Recent and Past Visits Recent Visits Date Type Provider Dept 11/30/20 Office Visit Candie Johns APN, CNP [facility] 05/16/20 Office Visit Candie Johns APN, CNP [facility] Showing recent visits within past 460 [...] documented as of this encounter Care Teams Credit Representative Relationship Specialty Start Date End Date Candie Johns APRN, OPERATIONS MANAGER ASSISTANT [address] [place] [address] PCP - General Advanced Practice Nurse 05/16/2008/27 Akhil Taylor MD [address] [place] [address] PCP - General Family Medicine 08/28/22 documented as of this encounter
--- OUTSIDE RECORDS SUMMARY | 2024-12-20 10:35 | XMS_ITS | Continuity of Care Document ---
Author Organization [facility] Address [address] [place] [address] Phone Care Team Providers Care Personal Injury Litigation Paralegal Name Role Phone Teodoro Kirk MD Unavailable [...] Providers Copied on Encounter [facility], [address], [facility], tel:[phone] [facility] No Information [address]er[address]. [address] [place], [id number] . tel: [phone] [facility], [address] [facility] [address] [place] [address], [facility], tel:[phone] [facility] No Information [address] Valerio. [address] [place], [place], [id number] . tel: [phone] OFFICE/OUTPA TIENT VISIT EST [facility], [address] [facility] [address] [place] [address], [facility], tel:[phone] [facility] DJD (degenerative joint disease), lumbarLow back painAcquired spondylolisthesis [address] Te[address]. [address], [place], [place], [id number] . tel: [phone] Referring Provider: Clinton Parsons, [address] [facility] [address], [place], [address] . tel:[phone] [facility], [address] [facility] [address], [place], [address], tel:[phone] [facility] Thoracic or lumbosacral neuritis or radiculitis [address] Teodoro. [address], [place], [place], [id number] . tel: [phone] Family History Family Member Type Diagnosis Age [...]
--- OUTSIDE RECORDS SUMMARY | 2024-12-20 10:35 | XMS_ITS | Referral Summary ---
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 11/21/2024 2:15 PM SILK FOLDER Ancillary Procedure [place] [facility] at [address] [place] [id number] Implantable defibrillator reprogramming/check (Primary Dx); ICD (implantable cardioverter-defibril lator) in place; Cardiomyopathy, ischemic; 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 11/21/2024 2:15 PM SILK FOLDER Office Visit [place] at [address] [place] [phone] Ebony Lewis NP Cardiomyopathy, ischemic (Primary Dx); Coronary artery disease with angina pectoris, unspecified vessel or lesion type, unspecified whether agdaagux or transplanted heart; Essential hypertension; Mixed hyperlipidemia; Implantable defibrillator reprogramming/check; 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, bilateral legs 11/16/2024 3:23 PM SILK FOLDER - 11/16/2024 11:59 PM SILK FOLDER Hospital Encounter [facility] Emergency, Room R Discharge Disposition: Discharge to home or self care 11/16/2024 6:29 PM SILK FOLDER - 11/16/2024 7:29 PM SILK FOLDER Emergency [facility] Emergency Department [address] [place] [address] Complaint of panic attack (Primary Dx); Anxiety disorder, unspecified type Discharge Disposition: Discharge to home or self care 11/16/2024 3:32 PM SILK FOLDER - 11/16/2024 4:12 PM SILK FOLDER Emergency [facility] Emergency Department [address] [place] [address] Discharge Disposition: Left without being seen 10/18/2024 Telephone [place] [facility] at [address] [place] [phone] Austin Perry MA from Last 3 [...] unspecified vessel or lesion type, unspecified whether agdaagux or transplanted heart Take 1 tablet by [...] 10/19/2020 Assessment & Plan (10/19/2020 1:38 PM SILK FOLDER): Talk to Primary Doctor regarding the [...] 10/19/2020 Assessment & Plan (10/19/2020 1:38 PM SILK FOLDER): Talk to Primary Doctor regarding the Hyperthyroidism Allergic rhinitis 09/18/2020 Assessment & Plan (04/07/2022 2:57 PM CDT): Continue nasal saline and Flonase and Astelin twice daily may use Buda gel or Aquaphor apply pea-size amount into each nostril with a cotton tipped applicator, being carefully just to tuck it into each nostril, then massage soft portion of the outer nose to massage the ointment around inside the nose. Cetirizine 10 mg (Zyrtec) daily Assessment & Plan (12/20/2021 1:51 PM SILK FOLDER): Nasal saline spray (Simply saline, Little Remedies, Ransom, Buda) 2 second sprays or 2 squeezes into [...] Astelin Assessment & Plan (11/27/2020 8:49 PM SILK FOLDER): Continue nasal saline followed by Astelin (azelastine) 2 sprays into each nostril while looking down over the sink, do not sniff in or blow nose after use for at least 30 minutes twice daily Assessment & Plan (09/18/2020 10:44 AM SILK FOLDER): Continue nasal saline and Astelin Continue [...] meal Assessment & Plan (12/20/2021 1:51 PM SILK FOLDER): Nasal saline spray (Simply saline, Little Remedies, Ransom, Buda) 2 second sprays or 2 squeezes into [...] days Assessment & Plan (10/19/2020 1:38 PM SILK FOLDER): Bactroban apply pea-size amount into each [...] Nasal saline spray (Simply saline, Little Remedies, Ransom, Buda) 2 second sprays or 2 squeezes into [...] Nasal saline spray (Simply saline, Little Remedies, Ransom, Buda) 2 second sprays or 2 squeezes into [...] 10/12/2019 Assessment & Plan (11/20/2019 2:12 PM SILK FOLDER): He came down with a respiratory [...] Pepcid. Assessment & Plan (09/18/2020 12:53 PM SILK FOLDER): Continue nasal saline and Astelin Continue [...] 02/08/2019 Assessment & Plan (11/20/2019 2:13 PM SILK FOLDER): He is no longer seeing Dr. [...] 04/04/2016 Assessment & Plan (11/11/2019 11:12 AM SILK FOLDER): Blood pressure is in a good [...] 11/09/2015 Assessment & Plan (11/11/2019 11:12 AM SILK FOLDER): Total and LDL cholesterol are low, but HDL is also low. I recommended increased activity level to bring up his HDL. 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 Benjamin. Assessment & Plan (11/11/2019 11:14 AM SILK FOLDER): He had stents in 2013. He [...] disease. Assessment & Plan (11/20/2019 2:16 PM SILK FOLDER): He does not have a glucometer [...] CPAP. Assessment & Plan (11/11/2019 11:14 AM SILK FOLDER): He is noncompliant with CPAP. Assessment [...] 2004. Assessment & Plan (11/11/2019 11:15 AM SILK FOLDER): He continues to have problems with [...] on file Legal Sex Male 12:35 AM SILK FOLDER Gender Identity Male 04/10/2020 12:52 PM CDT Sexual Orientation Straight 04/10/2020 12 :52 PM CDT Last Filed Vital Signs Vital Sign Reading Time Taken Comments Blood Pressure 122/81 11/21/2024 2:29 PM SILK FOLDER Pulse 77 11/21/2024 2:29 PM SILK FOLDER Temperature 36.3 C (97.4 F) 11/16/2024 5:53 PM SILK FOLDER Respiratory Rate 18 11/21/2024 2:29 PM SILK FOLDER Oxygen Saturation 98% 11/16/2024 7:28 PM SILK FOLDER Inhaled Oxygen Concentration - - Weight 80.3 kg (177 lb) 11/21/2024 2:29 PM SILK FOLDER Height 175.3 cm (5' 9 ) 11/21/2024 2:29 PM SILK FOLDER Body Mass Index 26.14 11/21/2024 2:29 PM SILK FOLDER Plan of Treatment Not on file Medical Devices Implanted Type Area Salt Maker Device Identifier Shelf Expiration Date Model / Serial / Lot SUN Behavioral Hold[employer]onik Inc Defibrillator Cardiac Acticor 7 Vr-T Dx [id number] - [id number] - [id number] Implanted:Qty: 1 on 03/02/2024 by Vitaliy Donis MD at [facility] ICD Biotronik Inc 10/11/2024 [id number] / [id number] / Biotronik Inc Lead Defibrillator Plexa Promri L65cm L15cm Cardiac Df4 Sterile Latex Free Disposable S Dx [id number] - [id number] - [id number] Implanted:Qty: 1 on 03/02/2024 by Vitaliy Donis MD at [facility] Lead Biotronik Inc 10/11/2025 [id number] / [id number] / Medtronic Inc Tyrx Absorbable Antibacterial Envelope-Large 3.3x2.9in [id number] - [id number] Implanted:Qty: 1 on 03/02/2024 by Vitaliy Donis MD at [facility] Mesh Medtronic Inc 12/10/2024 CMRM [id number] / / [id number] Terum[employer] Fiona Angio-Seal Vip 6fr Closere Device [id number] - [id number] Implanted:Qty: 1 on 02/04/2024 by Doron Benjamin MD at [facility] Other - see comments [employer] Fiona 07/12/2024 [id number] / / [id number] Procedures Procedure Name Priority Date/Time Associated Diagnosis Comments DEVICE CHECK - REMOTE Routine 11/29/2024 3:45 PM SILK FOLDER ICD (implantable cardioverter-defibri llator) in place Cardiomyopathy, ischemic 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 DEVICE CHECK - IN OFFICE Routine 11/21/2024 2:02 PM SILK FOLDER ICD (implantable cardioverter-defibri llator) in place Cardiomyopathy, ischemic 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 COLONOSCOPY 08/31/2024 7:30 AM SILK FOLDER EGFR STAT 02/04/2024 8:32 AM CDT 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) HEMOGLOBIN A1C Routine 11/02/2019 9:00 AM SILK FOLDER Hypertension associated with diabetes (HCC) Type 2 diabetes mellitus with complication, without long-term current use of insulin (HCC) LIPID PANEL Routine 11/02/2019 9:00 AM SILK FOLDER Hypertension associated with diabetes (HCC) Mixed hyperlipidemia Type 2 diabetes mellitus with complication, without long-term current use of insulin (HCC) ALBUMIN CREATININE RATIO, URINE Routine 11/02/2019 9:00 AM SILK FOLDER Hypertension associated with diabetes (HCC) Mixed hyperlipidemia Type 2 diabetes mellitus with complication, without long-term current use of insulin (HCC) PSA SCREEN Routine 03/09/2019 11:25 AM CDT Screening for prostate cancer from Last 3 Months or Most Recently Relevant to Health Maintenance Results * DEVICE CHECK - REMOTE (11/29/2024 3:45 PM SILK FOLDER) Anatomical Region Laterality Modality Other Narrative 12/02/2024 5:00 PM SILK FOLDER Images from the original result were not included. 11/30/2024 [employer] quarterly remote device check NOTE The following shows snippets from the complete quarterly report. The complete report in its entirety is attached to this Result Text in [employer] Wireman Presenting EGM Last in-office check 11/21/2024 6 [...] CHECK - IN OFFICE (11/21/2024 2:02 PM SILK FOLDER) Anatomical Region Laterality Modality Other Narrative 11/21/2024 3:30 PM SILK FOLDER Images from the original result were not included. 11/21/2024 [employer] in-office device check The complete report is attached to this Result Text in [employer] Wireman Doron Benjamin MD CARDIAC SERVICES PROCEDURES Final Result * Colonoscopy (08/31/2024 7:30 AM SILK FOLDER) Anatomical Region Laterality Modality Other Narrative Procedure Note Mich Krishnan DO - 08/31/2024 7:30 AM CST [facility] Patient Name: Mervin Marie Procedure Date: 08/31/2024 7:30 AM Date of : 1955 Admit Type: Outpatient Age: 69 Gender: Male Attending MD: Mich Krishnan D.O. Room: [facility] RO[facility] 3 Note Status: Finalized Patient [...] under direct vision. The Pediatric Colonoscope [id number] was introducedthrough the anus and advanced to [...] 7:30 AM Procedure Code(s): --- Professional --- 96551, Colonoscopy, flexible; with removal of tumor(s), polyp(s), or other lesion(s) by snare technique --- Technical --- 04403, Colonoscopy, flexible; with removal of tumor(s), polyp(s), or other lesion(s) by snare technique Diagnosis Code(s): --- Professional --- D12.2, Benign neoplasm of ascending colon R19.5, Other fecal abnormalities --- Technical --- D12.2, Benign neoplasm of ascending colon R19.5, Other fecal abnormalities CPT copyright 2020 [employer]. All rights reserved. The codes documented in this report are preliminary and upon roustabout head reviewmay be revised to meet current compliance requirements. Recognized by the [employer] for promoting quality [...] MD LAB BLOOD ORDERABLES Final Resu lt [facility] Department [place] [address] * Albumin Creatinine Ratio, Urine (11/02/2019 9:00 AM SILK FOLDER) Creatinine, ur 173 20 - 320 mg/dL [facility] Microalbumin, ur 4.5 See Note: mg/dL [facility] [place] Comment: Reference Range: Reference Range Not established Microalbumin/creat ratio 26 <30 mcg/mg creat [facility] [place] Comment: The ADA defines abnormalities in albumin excretion as follows: Category Result (mcg/mg creatinine) Normal <30 Microalbuminuria 30-299 Clinical albuminuria > OR = 300 The ADA recommends that at least two of three specimens collected within a 3-6 month period be abnormal before considering a patient to be within a diagnostic category. Urine 11/02/2019 9:00 AM SILK FOLDER 11/02/2019 9:01 AM SILK FOLDER Narrative [facility] - 11/03/2019 11:51 AM SILK FOLDER FASTING:YES FASTING: YES Resulting Agency Comment Performing Organization Information: Site ID: [id number] Name: [facility] Address: [address] [place] [address] [place] [address] Director: Walker Marquez D.O., MPH us Narayan Wheeler MD LAB URINE ORDERABLES Final Re sult [facility] [employer] [place], [place] * (ABNORMAL) Hemoglobin A1c (11/02/2019 9:00 AM SILK FOLDER) Hgb A1C 7.4(H) <5.7 % of total Hgb [facility] Comment: For someone without known diabetes, [...] children. Blood specimen (specimen) 11/02/2019 9:00 AM SILK FOLDER 11/02/2019 9:01 AM SILK FOLDER Narrative [facility] - 11/03/2019 11:51 AM SILK FOLDER FASTING:YES FASTING: YES Resulting Agency Comment Performing Organization Information: Site ID: [id number] Name: [employer] [facility] Address: [address] [address] Director: Walker Marquez D.O., MPH us Narayan Wheeler MD LAB BLOOD ORDERABLES Final Re sult KIRSTIN [facility] [place] * (ABNORMAL) Lipid panel (11/02/2019 9:00 AM SILK FOLDER) Cholesterol 91 <200 mg/dL [facility] [place] HDL 29(L) >40 mg/dL [facility] [place] Triglycerides 208(H) <150 mg/dL [facility] [place] Comment: If a non-fasting specimen was collected, consider repeat triglyceride testing on a fasting specimen if clinically indicated. Luh et al. J. of Clin. Lipidol. 2015;9:129-169. LDL 35 mg/dL (calc) [facility] [place] Comment: Reference range: <100 Desirable range <100 mg/dL for primary prevention; <70 mg/dL for patients with CHD or diabetic patients with > or = 2 CHD risk factors. LDL-C is now calculated using the Davide-Portillo calculation, which is a validated novel method providing better accuracy than the Friedewald equation in the estimation of LDL-C. Davide SS et al. JANICE. 2013;310(19): 0764-1426 (http://education.[employer]/faq/TUX576) Chol/HDL ratio 3.1 <5.0 (calc) [facility] [place] Non-HDL, (LDL+VLDL) 62 <130 mg/dL (calc) [facility] [place] Comment: For patients with diabetes plus 1 major ASCVD risk factor, treating to a non-HDL-C goal of <100 mg/dL (LDL-C of <70 mg/dL) is considered a therapeutic option. Blood specimen (specimen) 11/02/2019 9:00 AM SILK FOLDER 11/02/2019 9:01 AM SILK FOLDER Narrative [facility] - 11/03/2019 11:51 AM SILK FOLDER FASTING:YES FASTING: YES Resulting Agency Comment Performing Organization Information: Site ID: [id number] Name: [facility] Address: [address] [facility] [place] [address] Director: Walker Marquez D.O., MPH Narayan Wheeler MD LAB BLOOD ORDERABLES Final Re sult Performing Organization Address [facility] Co de Phone Number [facility] [place] * PSA screen (03/09/2019 11:25 AM CDT) PSA 2.9 < OR = 4.0 ng/mL [facility] Comment: The total PSA value from this assay system is standardized against the WHO standard. The test result will be approximately 20% lower when compared to the equimolar-standardized total PSA (Letitia Tokio). Comparison of serial PSA results should be [...] Site ID: [id number] Name: [facility] Address: [address] [facility] [address] Director: Walker Marquez D.O., MPH Narayan Wheeler MD LAB BLOOD ORDERABLES Final Re sult Performing Organization Address [facility] Co de Phone Number [facility] [place] from Last 3 Months or Most Recently Relevant to Health Maintenance Insurance [facility] Advance Directives For more information, please contact: [phone] * Full Code (Latest Code Status on File) Date Activated Date Inactivated Comments 08/31/2024 7:37 AM 08/31/2024 3:42 PM * Full Code Date Activated Date Inactivated Comments 08/31/2024 7:37 AM 08/31/2024 7:37 AM * Full Code Date Activated Date Inactivated Comments 02/04/2024 10:01 AM 02/05/2024 11:32 AM Care Teams Electronic Prepress System Operator Relationship Specialty Start Date End Date Kerri Zuniga NP [address] [place] [id number] PCP - General Nurse Practitioner 08/11/24 [place] [address] [place] [address] Consulting Physician Urology 11/30/23
--- OUTSIDE RECORDS SUMMARY | 2024-12-20 10:35 | XMS_ITS | Clinical Summary ---
Author Organization [facility] [place] [address] Address [address] [place] [address] Phone Care Team Providers Care Nude Model Name Role Phone Gil Dow MD Unavailable [phone] Kerri Zuniga NP Primary Care Provider [phone] Allergies Active Allergy Reactions Criticality Noted Date [...] unspecified vessel or lesion type, unspecified whether [place] or transplanted heart Take 1 tablet by [...] 10/19/2020 Assessment & Plan (10/19/2020 1:38 PM SPRAY APPLICATOR): Talk to Primary Doctor regarding the Hyperthyroidism [...] 10/19/2020 Assessment & Plan (10/19/2020 1:38 PM SPRAY APPLICATOR): Talk to Primary Doctor regarding the Hyperthyroidism Allergic rhinitis 09/18/2020 Assessment & Plan (04/07/2022 2:57 PM CDT): Continue nasal saline and Flonase and Astelin twice daily may use Blanco gel or Aquaphor apply pea-size amount into each nostril with a cotton tipped applicator, being carefully just to tuck it into each nostril, then massage soft portion of the outer nose to massage the ointment around inside the nose. Cetirizine 10 mg (Zyrtec) daily Assessment & Plan (12/20/2021 1:51 PM SPRAY APPLICATOR): Nasal saline spray (Simply saline, Little Remedies, [place], Blanco) 2 second sprays or 2 squeezes into [...] Astelin Assessment & Plan (11/27/2020 8:49 PM SPRAY APPLICATOR): Continue nasal saline followed by Astelin (azelastine) 2 sprays into each nostril while looking down over the sink, do not sniff in or blow nose after use for at least 30 minutes twice daily Assessment & Plan (09/18/2020 10:44 AM SPRAY APPLICATOR): Continue nasal saline and Astelin Continue Cetirizine [...] meal Assessment & Plan (12/20/2021 1:51 PM SPRAY APPLICATOR): Nasal saline spray (Simply saline, Little Remedies, [place], Blanco) 2 second sprays or 2 squeezes into [...] days Assessment & Plan (10/19/2020 1:38 PM SPRAY APPLICATOR): Bactroban apply pea-size amount into each nostril [...] Nasal saline spray (Simply saline, Little Remedies, [place]ster, Blanco) 2 second sprays or 2 squeezes into [...] Nasal saline spray (Simply saline, Little Remedies, [place]ster, Blanco) 2 second sprays or 2 squeezes into [...] 10/12/2019 Assessment & Plan (11/20/2019 2:12 PM SPRAY APPLICATOR): He came down with a respiratory infection [...] Pepcid. Assessment & Plan (09/18/2020 12:53 PM SPRAY APPLICATOR): Continue nasal saline and Astelin Continue Cetirizine [...] 02/08/2019 Assessment & Plan (11/20/2019 2:13 PM SPRAY APPLICATOR): He is no longer seeing Dr. Mckenzie [...] 04/04/2016 Assessment & Plan (11/11/2019 11:12 AM SPRAY APPLICATOR): Blood pressure is in a good range. [...] 11/09/2015 Assessment & Plan (11/11/2019 11:12 AM SPRAY APPLICATOR): Total and LDL cholesterol are low, but HDL is also low. I recommended increased activity level to bring up his HDL. 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 Benjamin. Assessment & Plan (11/11/2019 11:14 AM SPRAY APPLICATOR): He had stents in 2013. He denies [...] disease. Assessment & Plan (11/20/2019 2:16 PM SPRAY APPLICATOR): He does not have a glucometer so [...] CPAP. Assessment & Plan (11/11/2019 11:14 AM SPRAY APPLICATOR): He is noncompliant with CPAP. Assessment & [...] 2004. Assessment & Plan (11/11/2019 11:15 AM SPRAY APPLICATOR): He continues to have problems with anxiety [...] Department Care Team Description 11/30/2024 10:45 AM SPRAY APPLICATOR Ancillary Procedure [facility] [employer] [address] [phone] ICD (implantable cardioverter-defibril lator) in place; Cardiomyopathy, ischemic; Coronary artery disease involving [place] coronary artery of [place] heart with angina pectoris 11/21/2024 2:15 PM SPRAY APPLICATOR Ancillary Procedure [facility] [employer] [facility] at [address] [address] Implantable defibrillator reprogramming/check (Primary Dx); ICD (implantable cardioverter-defibril lator) in place; Cardiomyopathy, ischemic; Coronary artery disease involving [place] coronary artery of [place] heart with angina pectoris 11/21/2024 2:15 PM SPRAY APPLICATOR Office Visit [facility] [employer] [facility] at [address] [address] Ebony Lewis NP Cardiomyopathy, ischemic (Primary Dx); Coronary artery disease with angina pectoris, unspecified vessel or lesion type, unspecified whether [place] or transplanted heart; Essential hypertension; Mixed hyperlipidemia; Implantable defibrillator reprogramming/check; Atherosclerosis of [place] arteries of extremities with intermittent claudication, bilateral legs 11/16/2024 6:29 PM SPRAY APPLICATOR - 11/16/2024 7:29 PM SPRAY APPLICATOR Emergency [facility] Emergency Department [address] [place] [address] Complaint of panic attack (Primary Dx); Anxiety disorder, unspecified type Discharge Disposition: Discharge to home or self care 11/16/2024 3:32 PM SPRAY APPLICATOR - 11/16/2024 4:12 PM SPRAY APPLICATOR Emergency [facility] Emergency Department [address] [place] [address] Discharge Disposition: Left without being seen 11/16/2024 3:23 PM SPRAY APPLICATOR - 11/16/2024 11:59 PM SPRAY APPLICATOR Hospital Encounter [facility] Emergency, Room R Discharge Disposition: Discharge to home or self care 10/18/[address] [facility] [employer] [facility] at [address] [phone] Austin Perry MA from Last 3 Months [...] KNEE ARTHROPLASTY - 10/11/[address] Esquivel [place]. CORONARY STENT PLACEMENT 10/12/2013 - 10/11/2014 Three stents in [address] Benjamin. ESOPHAGOGASTRODUODENOSCOPY 03/03/2019 Gastric polyps and gastritis, Dr. Barakat, [facility]. COLONOSCOPY 03/03/2019 Fair prep, hemorrhoids, no polyps, Dr. Baraakt, [facility]. INSERT / REPLACE / REMOVE PACEMAKER [...] reflux disease) Depression Anxiety DM (diabetes mellitus) ([facility]) HTN (hypertension) HLD (hyperlipidemia) Adenomatous colon polyp HFrEF (heart failure with re duced ejection fraction) ([facility]) Family History Medical History Relation Name Comments [...] on file Legal Sex Male 12:35 AM SPRAY APPLICATOR Gender Identity Male 04/10/2020 12:52 PM CDT Sexual Orientation Straight 04/10/2020 12 :52 PM CDT Obstetrics History Last Filed Vital Signs Vital Sign Reading Time Taken Comments Blood Pressure 122/81 11/21/2024 2:29 PM SPRAY APPLICATOR Pulse 77 11/21/2024 2:29 PM SPRAY APPLICATOR Temperature 36.3 C (97.4 F) 11/16/2024 5:53 PM SPRAY APPLICATOR Respiratory Rate 18 11/21/2024 2:29 PM SPRAY APPLICATOR Oxygen Saturation 98% 11/16/2024 7:28 PM SPRAY APPLICATOR Inhaled Oxygen Concentration - - Weight 80.3 kg (177 lb) 11/21/2024 2:29 PM SPRAY APPLICATOR Height 175.3 cm (5' 9 ) 11/21/2024 2:29 PM SPRAY APPLICATOR Body Mass Index 26.14 11/21/2024 2:29 PM SPRAY APPLICATOR Plan of Treatment Health Maintenance Due Date [...] 08/31/2024, 03/03/2019 Medical Devices Implanted Type Area Senior Budget Analyst Device Identifier Shelf Expiration Date Model / Serial / Lot [employer] Defibrillator Cardiac Acticor 7 Vr-T Dx [id number] - [id number] - [id number] Implanted:Qty: 1 on 03/02/2024 by Vitaliy Donis MD at [facility] ICD [employer] 10/11/2024 [id number] / [id number] / [employer] Lead Defibrillator Plexa Promri L65cm L15cm Cardiac Df4 Sterile Latex Free Disposable S Dx [id number] - [id number] - [id number] Implanted:Qty: 1 on 03/02/2024 by Vitaliy Donis MD at [facility] Lead [employer] 10/11/2025 [id number] 09 / [id number] / Medtronic Inc Tyrx Absorbable Antibacterial Envelope-Large 3.3x2.9in [id number] - [id number] Implanted:Qty: 1 on 03/02/2024 by Vitaliy Donis MD at [facility] Mesh Medtronic Inc 12/10/2024 CMRM [id number] / / [id number] [employer] Fiona Angio-Seal Vip 6fr Closere Device [id number] - [id number] Implanted:Qty: 1 on 02/04/2024 by Doron Benjamin MD at [facility] Other - see comments Roadmap 07/12/2024 [id number] / / [id number] Procedures Procedure Name Priority Date/Time Associated Diagnosis Comments DEVICE CHECK - REMOTE Routine 11/29/2024 3:45 PM SPRAY APPLICATOR ICD (implantable cardioverter-defibri llator) in place Cardiomyopathy, ischemic Coronary artery disease involving [place] coronary artery of [place] heart with angina pectoris DEVICE CHECK - IN OFFICE Routine 11/21/2024 2:02 PM SPRAY APPLICATOR ICD (implantable cardioverter-defibri llator) in place Cardiomyopathy, ischemic Coronary artery disease involving [place] coronary artery of [place] heart with angina pectoris COLONOSCOPY 08/31/2024 7:30 AM SPRAY APPLICATOR EGFR STAT 02/04/2024 8:32 AM CDT 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) HEMOGLOBIN A1C Routine 11/02/2019 9:00 AM SPRAY APPLICATOR Hypertension associated with diabetes (HCC) Type 2 diabetes mellitus with complication, without long-term current use of insulin (HCC) LIPID PANEL Routine 11/02/2019 9:00 AM SPRAY APPLICATOR Hypertension associated with diabetes (HCC) Mixed hyperlipidemia Type 2 diabetes mellitus with complication, without long-term current use of insulin (HCC) ALBUMIN CREATININE RATIO, URINE Routine 11/02/2019 9:00 AM SPRAY APPLICATOR Hypertension associated with diabetes (HCC) Mixed hyperlipidemia Type 2 diabetes mellitus with complication, without long-term current use of insulin (HCC) PSA SCREEN Routine 03/09/2019 11:25 AM CDT Screening for prostate cancer from Last 3 Months or Most Recently Relevant to Health Maintenance Results * DEVICE CHECK - REMOTE (11/29/2024 3:45 PM SPRAY APPLICATOR) Anatomical Region Laterality Modality Other Narrative 12/02/2024 5:00 PM SPRAY APPLICATOR Images from the original result were not included. 11/30/2024 [employer] quarterly remote device check NOTE The following shows snippets from the complete quarterly report. The complete report in its entirety is attached to this Result Text in Hogshead Head Matcher Presenting EGM Last in-office check 11/21/2024 6 [...] CHECK - IN OFFICE (11/21/2024 2:02 PM SPRAY APPLICATOR) Anatomical Region Laterality Modality Other Narrative 11/21/2024 3:30 PM SPRAY APPLICATOR Images from the original result were not included. 11/21/2024 Biotronik in-office device check The complete report is attached to this Result Text in Hogshead Head Matcher Doron Benjamin MD [facility] PROCEDURES Final Result * Colonoscopy (08/31/2024 7:30 AM SPRAY APPLICATOR) Anatomical Region Laterality Modality Other Narrative Procedure Note Mich Krishnan, - 08/31/2024 7:30 AM CST [facility] Patient Name: Mervin Marie Procedure Date: 08/31/2024 7:30 AM Date of : 1955 Admit Type: Outpatient Age: 69 Gender: Male Attending MD: Mich Krishnan D.O. Room: [facility] 3 Note Status: Finalized Patient [...] under direct vision. The Pediatric Colonoscope [id number]-[id number] was introducedthrough the anus and advanced to [...] 7:30 AM Procedure Code(s): --- Professional --- 75670, Colonoscopy, flexible; with removal of tumor(s), polyp(s), or other lesion(s) by snare technique --- Technical --- 97956, Colonoscopy, flexible; with removal of tumor(s), polyp(s), or other lesion(s) by snare technique Diagnosis Code(s): --- Professional --- D12.2, Benign neoplasm of ascending colon R19.5, Other fecal abnormalities --- Technical --- D12.2, Benign neoplasm of ascending colon R19.5, Other fecal abnormalities CPT copyright 2020 [employer]. All rights reserved. The codes documented in this report are preliminary and upon customer care manager reviewmay be revised to meet current compliance requirements. Recognized by the [employer] for promoting quality [...] LAB BLOOD ORDERABLES Final Resu lt [facility]) 1 [facility] Department [place] [address] * Albumin Creatinine Ratio, Urine (11/02/2019 9:00 AM SPRAY APPLICATOR) Creatinine, ur 173 20 - 320 mg/dL [...] a diagnostic category. Urine 11/02/2019 9:00 AM SPRAY APPLICATOR 11/02/2019 9:01 AM SPRAY APPLICATOR Narrative [facility] - 11/03/2019 11:51 AM SPRAY APPLICATOR FASTING:YES FASTING: YES Resulting Agency Comment Performing Organization Information: Site ID: [place] Name: [facility] Address: [address] [address] Director: Walker Marquez D.O., MPH Narayan Wheeler MD LAB URINE ORDERABLES Final Re sult Performing Organization Address [facility] Co de Phone Number [facility] [place] * (ABNORMAL) Hemoglobin A1c (11/02/2019 9:00 AM SPRAY APPLICATOR) Hgb A1C 7.4(H) <5.7 % of total Hgb [facility] [place] Comment: For someone without known diabetes, a [...] children. Blood specimen (specimen) 11/02/2019 9:00 AM SPRAY APPLICATOR 11/02/2019 9:01 AM SPRAY APPLICATOR Narrative [facility] - 11/03/2019 11:51 AM SPRAY APPLICATOR FASTING:YES FASTING: YES Resulting Agency Comment Performing Organization Information: Site ID: [place] Name: [facility] Address: [address] [address] Director: Walker Marquez D.O., MPH Narayan Wheeler MD LAB BLOOD ORDERABLES Final Re sult Performing Organization Address [facility] Co de Phone Number [facility] [place] * (ABNORMAL) Lipid panel (11/02/2019 9:00 AM SPRAY APPLICATOR) Cholesterol 91 <200 mg/dL [facility] [place] HDL 29(L) >40 mg/dL [facility] [place] Triglycerides 208(H) <150 mg/dL [facility] [place] Comment: If a non-fasting specimen was collected, consider repeat triglyceride testing on a fasting specimen if clinically indicated. Luh et al. J. of Clin. Lipidol. 2015;9:129-169. LDL 35 mg/dL (calc) [facility] [place] Comment: Reference range: <100 Desirable range <100 mg/dL for primary prevention; <70 mg/dL for patients with CHD or diabetic patients with > or = 2 CHD risk factors. LDL-C is now calculated using the Kristin calculation, which is a validated novel method providing better accuracy than the Friedewald equation in the estimation of LDL-C. Davide GRULLON et al. JANICE. 2013;310(19): 0546-5419 (http://education.[facility]/faq/CDF479) Chol/HDL ratio 3.1 <5.0 (calc) [facility] Non-HDL, (LDL+VLDL) 62 <130 mg/dL (calc) [facility] Comment: For patients with diabetes plus 1 major ASCVD risk factor, treating to a non-HDL-C goal of <100 mg/dL (LDL-C of <70 mg/dL) is considered a therapeutic option. Blood specimen (specimen) 11/02/2019 9:00 AM SPRAY APPLICATOR 11/02/2019 9:01 AM SPRAY APPLICATOR Narrative [facility] - 11/03/2019 11:51 AM SPRAY APPLICATOR FASTING:YES FASTING: YES Resulting Agency Comment Performing Organization Information: Site ID: [place] [facility] Address: [address] [facility] [place] [address] Director: Walker Marquez D.O., MPH Narayan Wheeler MD LAB BLOOD ORDERABLES Final Re sult [facility] [place], [place] * PSA screen (03/09/2019 11:25 AM CDT) PSA 2.9 < OR = 4.0 ng/mL [facility] Comment: The total PSA value from this [...] Site ID: [id number] Name: [facility]in Miller Address: [address] [address] Director: Walker Marquez D.O., MPH us Narayan Wheeler MD LAB BLOOD ORDERABLES Final Re sult [facility] from Last 3 Months or Most Recently Relevant to Health Maintenance Insurance [facility] [place] [address] [facility] [place] [address] Advance Directives For more information, please contact: [phone] * Full Code (Latest Code Status on File) Date Activated Date Inactivated Comments 08/31/2024 7:37 AM 08/31/2024 3:42 PM * Full Code Date Activated Date Inactivated Comments 08/31/2024 7:37 AM 08/31/2024 7:37 AM * Full Code Date Activated Date Inactivated Comments 02/04/2024 10:01 AM 02/05/2024 11:32 AM Care Teams Nude Model Relationship Specialty Start Date End Date Kerri Zuniga NP [address] [place] [address] [place] [address] PCP - General Nurse Practitioner 08/11/24 [place] [address] [place] [address] Consulting Physician Urology 11/30/23
--- OUTSIDE RECORDS SUMMARY | 2024-12-20 10:35 | XMS_ITS | Encounter Summary ---
Author Organization [facility] Address [address] [place] [address] Phone Care Team Providers Care Sap Technical Developer Name Role Phone Candie Johns APRN, CNP Primary Care P rovider Akhil Taylor MD Primary Care Provider [phone] Reason for Visit * Reason Comments Medication Refill Encounter Details Date Type Department Care Team (Late st Contact Info) Description 03/31/2021 Refill [facility] - Primary Care - [address] [place] [address] Candie Johns APRN, CNP [address] [place] [address] Medication Refill Social History Tobacco [...] documented as of this encounter Care Teams Sap Technical Developer Relationship Specialty Start Date End Date Candie Johns APRN, DEMAND MANAGER [address] [place] [address] PCP - General Advanced Practice Nurse 05/16/2008/27 Akhil Taylor MD [address] [place] [address] PCP - General Family Medicine 08/28/22 documented as of this encounter
--- OUTSIDE RECORDS SUMMARY | 2024-12-20 10:35 | XMS_ITS | Encounter Summary ---
Author Organization [facility] Address [address] [place] [address] Phone Care Team Providers Care Public Accountant Name Role Phone Candie Johns APRN, CNP Primary Care P rovider Akhil Taylor MD Primary Care Provider [phone] Reason for Visit * Reason Comments Medication Refill Encounter Details Date Type Department Care Team (Late st Contact Info) Description 06/22/2021 Refill [facility] - Primary Care - [address] [place] [address] Candie Johns APRN, CNP [address] [place] [address] Medication Refill Social History Tobacco [...] documented as of this encounter Care Teams Public Accountant Relationship Specialty Start Date End Date Candie Johns APRN, GLUING MACHINE OFFBEARER [address] [place] [address] PCP - General Advanced Practice Nurse 05/16/2008/27 Akhil Taylor MD [address] [place] [address] PCP - General Family Medicine 08/28/22 documented as of this encounter
--- OUTSIDE RECORDS SUMMARY | 2024-12-20 10:35 | XMS_ITS | Encounter Summary ---
Author Organization [facility] Address [address] [place] [address] Phone Care Team Providers Care Superintendent Custodian Janitor Name Role Phone Candie Johns APRN, CNP Primary Care P rovider Akhil Taylor MD Primary Care Provider [phone] Reason for Visit * Reason Comments Medication Refill Encounter Details Date Type Department Care Team (Late st Contact Info) Description 03/08/2022 Refill [facility] - Primary Care - [address] [place] [address] Candie Johns APRN, CNP [address] [place] [address] Medication Refill Social History Tobacco [...] Unspecified essential hypertension Coronary artery disease of [place] artery of [place] heart with stable angina pectoris (HCC) documented in this encounter Additional Health Concerns Assessment Noted Time PHQ-9 Depression Total Score: 0 06/07/20 21 1:00 PM CDT documented as of this encounter Care Teams Superintendent Custodian Janitor Relationship Specialty Start Date End Date Candie Johns APRN, SED HIGH SCHOOL TEACHER [address] [facility] [place] [address] PCP - General Advanced Practice Nurse 05/16/2008/27 Akhil Taylor MD [address] [place] [address] PCP - General Family Medicine 08/28/22 documented as of this encounter
--- OUTSIDE RECORDS SUMMARY | 2024-12-20 10:35 | XMS_ITS | Encounter Summary ---
Author Organization [facility] Address [address] [place] [address] Phone Care Team Providers Care Scoop Machine Operator Name Role Phone Akhil Taylor MD Primary Care Provider [phone] Reason for Visit * Reason Comments Medication Refill Encounter Details Date Type Department Care Team (Late st Contact Info) Description 10/28/2024 Refill [facility] [address] [place] [phone] Mundo Agosto, CONTRACT SPECIALIST, HEAD BOOKKEEPER [address] [place] [address] Medication Refill Social History Tobacco Use Types [...] documented as of this encounter Care Teams Scoop Machine Operator Relationship Specialty Start Date End Date Akhil Taylor MD [address] [place] [address] PCP - General Family Medicine 08/28/22 documented as of this encounter
== END 2024-12-20 09:35 | disposition home or self-care (01) ==
LOC: ANHIMG 09:39
PROVIDERS: PCP Nurse Practitioner Adult Health; Visit Provider Nurse Practitioner Adult Health
DX: K86.89 Other specified diseases of pancreas (principal); K80.20 Calculus of gallbladder without cholecystitis without obstruction; N20.0 Calculus of kidney; K59.00 Constipation, unspecified; S30.0XXA Contusion of lower back and pelvis, initial encounter; X58.XXXA Exposure to other specified factors, initial encounter; K40.90 Unilateral inguinal hernia, without obstruction or gangrene, not specified as recurrent; R74.8 Abnormal levels of other serum enzymes
CPT/HCPCS: 74176

== ENCOUNTER 2025-06-05 10:10 | Outpatient (CLI) | payer OTHER, SELFPAY ==
--- OUTSIDE RECORDS SUMMARY | 2015-03-20 08:23 | XMS_ITS | Continuity of Care Document ---
Author Organization [facility] Address [address] [place] [id number] Phone Care Team Providers Care Technical Services Librarian Name Role Phone Teodoro Kirk MD Unavailable Unavailable Medications Medication Instructions Dosage Effective Dates (start - stop) Status Comments Ultram 50 mg tablet take 1 tablet (50MG) 1 po tid prn pain - Active Ultram 50 mg tablet take 1 tablet (50MG) 1 po tid prn pain - No Longer Active Procedures Procedure Date MU Reporting OFFICE/OUTPATIENT VISIT EST Advance Directives Directive Yes / No Effective Date File Name No Information Encounters Encounter Description Practice Location Reason(s) For Visit Diagnoses Date Provider Providers Copied on Encounter [facility], [address], [facility], tel:[phone] [facility] No Information 5 Reagan Valerio. [address], [id number] . tel: [phone] [facility], [address] [facility] [address] [place] [address], [facility], tel:[phone] [facility] No Information 5 Reagan Valerio. [address] [place], [place], [id number] . tel: [phone] OFFICE/OUTPA TIENT VISIT EST [facility], [address] [facility] [address] [place] [address], [facility], tel:[phone] [facility]D (degenerative joint disease), lumbarLow back painAcquired spondylolisthesis 3 eRagan Teodoro. [address], [place], [place], [id number] . tel: [phone] Referring Provider: Clinton Parsons, [address] [facility] [address], [place], [address] . tel:[phone] [facility], [address] [facility] [address], [place], [address], tel:[phone] [facility] Thoracic or lumbosacral neuritis or radiculitis 3 Reagan Teodoro. [address], [place], [place], [id number] . tel: [phone] Family History Family Member Type Diagnosis Age At Onset No Information Payers Payer name Insurance type Covered green party ID Authoriza tion(s) No Information Social History Type Description Quantity Date Captured Comments Sex Male Smoking Status No Information Chief Complaint And Reason For Visit No Information Reason For Referral Reason For Referral No Information Plan Of Treatment Date Type Action Status Referral Ordered: INJ FORAMEN EPIDURAL L/S spine, lumbar Appointment date/timeframe: 08/10/2013 ordered History Of Present Illness Encounter Date Complaint History Of Prese nt Illness No Information Functional Status Date Functional Assessmen t No Information Instructions Date Instruction Additional Infor angie Continue medication as prescribe d Assessments Type Assessment Date No Information Patient Care Teams Name Effective Dates (start - stop) Status Members No Information
--- OUTSIDE RECORDS SUMMARY | 2025-06-05 11:02 | XMS_ITS | Encounter Summary ---
Author Organization [facility] Address [address] [place] [address] Phone Care Team Providers Care Head Of Ethics And Compliance Name Role Phone Candie Johns APRN, CNP Primary Care P rovider Akhil Taylor MD Primary Care Provider Reason for Visit * Reason Comments Medication Refill Encounter Details Date Type Department Care Team (Late st Contact Info) Description 03/22/2022 Refill [facility] - Primary Care - [address] [place] [address] Candie Johns APRN, CNP [address] [place] [address] Medication Refill Social History Tobacco [...] documented as of this encounter Care Teams Head Of Ethics And Compliance Relationship Specialty Start Date End Date Candie Johns APRN, REPORT WRITER [address] [place] [address] PCP - General Advanced Practice Nurse 05/16/2008/27 Akhil Taylor MD [address] [place] [address] PCP - General Family Medicine 08/28/22 documented as of this encounter
--- OUTSIDE RECORDS SUMMARY | 2025-06-05 11:02 | XMS_ITS | Encounter Summary ---
Author Organization [facility] Address [address] [place] [address] Phone Care Team Providers Care Wort Extractor Name Role Phone Candie Johns APRN, CNP Primary Care P rovider Akhil Taylor MD Primary Care Provider Reason for Visit * Reason Comments Medication Refill Encounter Details Date Type Department Care Team (Late st Contact Info) Description 01/19/2021 Refill [facility] - Primary Care - [address] [place] [address] Candie oJhns APRN, CNP [address] [place] [address] Medication Refill Social History Tobacco [...] Outpatient Visits 1 month ago Acquired hypothyroidism [facility] Candie Johns APN, CNP 8 months ago Essential hypertension [facility] Candie Johns APN, CNP 2 years ago Anxiety [facility] Rl Alicea MD 2 years ago Essential hypertension [facility] R[facility] Alicea MD 2 years ago Bronchitis [facility] Rl Shetty MD Upcoming Appointments Future Appointments In 4 months Candie Johns APN HORIZONTAL DRILL OPERATOR [facility] - Recent and Past Visits Recent Visits Date Type Provider Dept 11/30/20 Office Visit Candie Johns APN, CNP [facility] 05/16/20 Office Visit Candie Johns APN, CNP [facility] Showing recent visits within past [...] documented as of this encounter Care Teams Wort Extractor Relationship Specialty Start Date End Date Candie Johns APRN, ZACHARY [address] [place] [address] PCP - General Advanced Practice Nurse 05/16/2008/27 Akhil Taylor MD [address] [place] [address] PCP - General Family Medicine 08/28/22 documented as of this encounter
--- OUTSIDE RECORDS SUMMARY | 2025-06-05 11:02 | XMS_ITS | Encounter Summary ---
Author Organization [facility] Address [address] [place] [address] Phone Care Team Providers Care Trichologist Name Role Phone Akhil Taylor MD Primary Care Provider [phone] Reason for Visit * Reason Comments Medication Refill Encounter Details Date Type Department Care Team (Late st Contact Info) Description 01/01/2023 Refill [facility] - Primary Care - [address] [place] [address] Candie Johns APRN, ZACHARY [address] [place] [address] Medication Refill Social History Tobacco [...] documented as of this encounter Care Teams Trichologist Relationship Specialty Start Date End Date Akhil Taylor MD PCP - General Family Medicine 08/28/22 documented as of this encounter
--- OUTSIDE RECORDS SUMMARY | 2025-06-05 11:02 | XMS_ITS | Encounter Summary ---
Author Organization [facility] Address [address] [place] [address] Phone Care Team Providers Care Bereavement Coordinator Name Role Phone Candie Johns APRN, CNP Primary Care P rovider Akhil Taylor MD Primary Care Provider Reason for Visit * Reason Comments Medication Refill Encounter Details Date Type Department Care Team (Late st Contact Info) Description 11/30/2020 Refill [facility] - Primary Care - [address] [place] [address] Candie Johns APRN, CNP [address] [place] [address] Medication Refill Social History Tobacco [...] COVID-19? No / Unsure 11/30/2020 12:44 PM DEPUTY DIRECTOR OF NURSING documented as of this encounter Plan of Treatment Not on file documented as of this encounter Visit Diagnoses Not on filedocumented in this encounter Additional Health Concerns Assessment Noted Time PHQ-9 Depression Total Score: 0 05/16/20 20 1:00 PM CDT documented as of this encounter Care Teams Bereavement Coordinator Relationship Specialty Start Date End Date Candie Johns APRN, WEB CONTENT WRITER [address] [place] [address] PCP - General Advanced Practice Nurse 05/16/2008/27 Akhil Taylor MD [address] [place] [address] PCP - General Family Medicine 08/28/22 documented as of this encounter
--- OUTSIDE RECORDS SUMMARY | 2025-06-05 11:02 | XMS_ITS | Encounter Summary ---
Author Organization [facility] Address [address] [place] [address] Phone Care Team Providers Care Spool Cleaner Hand Name Role Phone Akhil Taylor MD Primary Care Provider [phone] Reason for Visit * Reason Comments Medication Refill Encounter Details Date Type Department Care Team (Late st Contact Info) Description 10/28/2024 Refill [facility] [address] [place] [id number] Mundo Agosto, BIOLOGY TUTOR, [place] [address] [place] [address] Medication Refill Social History Tobacco Use Types [...] documented as of this encounter Care Teams Spool Cleaner Hand Relationship Specialty Start Date End Date Akhil Taylor MD PCP - General Family Medicine 08/28/22 documented as of this encounter
--- OUTSIDE RECORDS SUMMARY | 2025-06-05 11:02 | XMS_ITS | Encounter Summary ---
Author Organization [facility] Address [address] 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
--- OUTSIDE RECORDS SUMMARY | 2025-06-05 11:02 | XMS_ITS | Clinical Summary ---
Author Organization [facility] [address] Address [address] [employer] [place] [address] Phone Care Team Providers Care Underwriting Operations Manager Name Role Phone Gil Dow MD Unavailable [phone] Kerri Zuniga NP Primary Care Provider [phone] Allergies Active Allergy Reactions Criticality Noted Date Comments Losartan Swelling High 02/23/2019 Medications rosuvastatin (CRESTOR) 40 mg tablet Take 1 tablet (40 mg total) by mouth daily Active metFORMIN (GLUCOPHAGE) 1,000 mg tabletIndication s:type 2 diabetes mellitus Take 1 tablet (1,000 mg total) by mouth 2 (two) times a day 60 tablet 5 01/30/20 20 Active mupirocin (BACTROBAN) 2 % ointmentIndicati ons:Acute recurrent maxillary sinusitis APPLY OINTMENT TOPICALLY TO AFFECTED AREA TWICE DAILY FOR 14 DAYS 22 g 10/21/19 22 Active tamsulosin (FLOMAX) 0.4 mg extended release capsule TAKE 1 CAPSULE BY MOUTH EVERY DAY AT BEDTIME 02/25/[address] (PROTONIX) 20 mg EC [...] by mouth nightly as needed for sleep 11/16/19 24 Active levothyroxine (SYNTHROID) 100 mcg tablet Take 1 tablet (100 mcg total) by mouth daily 10/14/19 24 Active clopidogreL (PLAVIX) 75 mg tabletIndication s:Coronary artery disease with angina pectoris, unspecified vessel or lesion type, unspecified whether cherokee or transplanted heart Take 1 tablet by mouth once daily 90 tablet 3 04/01/20 24 Active Mounjaro 12.5 mg/0.5 mL pen injector Inject 12.5 mg as directed every 2 (two) weeks As needed 02/18/20 24 Active metOLazone (ZAROXOLYN) 2.5 mg tablet Take 1 tablet (2.5 mg total) by mouth every other day 60 tablet 10/06/20 24 Active LORazepam (ATIVAN) 0.5 mg tabletIndication s:Anxiety disorder, unspecified type Take 0.5 tablets (0.25 mg total) by mouth every 8 (eight) hours as needed for anxiety Collaborating physician Damian Valdez MD 8 tablet 11/16/19 25 Active Additional Information Patient not taking.Reported on 05/22/2025 ALPRAZolam (XANAX) 0.5 mg tablet 11/21/19 25 Active finasteride (PROSCAR) 5 mg tablet Take 1 tablet (5 mg total) by mouth daily 09/13/20 24 Active HYDROcodone-acet aminophen (NORCO) 7.5-325 mg per tablet TAKE 1 TABLET BY MOUTH EVERY DAY AT BEDTIME NEEDED FOR PAIN 11/14/19 25 Active potassium chloride ER 10 mEq CR tablet Take 1 tablet/capsule (10 mEq total) by mouth daily 10/10/20 24 Active semaglutide (Ozempic) 0.25 mg or 0.5 mg(2 mg/1.5 mL) pen injector injection 11/03/19 25 Active sertraline (ZOLOFT) 50 mg tablet 11/21/19 25 Active spironolactone (ALDACTONE) 25 mg tablet Take 1 tablet (25 mg total) by mouth daily 90 tablet 3 11/21/19 25 Active carvediloL (COREG) 6.25 mg tablet TAKE 1 TABLET BY MOUTH TWICE DAILY WITH MEALS 60 tablet 11 03/16/20 25 Active magnesium oxide 400 mg magnesium capsuleIndicatio ns: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) Take by mouth Active Active Problems Problem Noted Date Diagnosed [...] 10/19/2020 Assessment & Plan (10/19/2020 1:38 PM ACTIVITY MANAGER): Talk to Primary Doctor regarding the Hyperthyroidism [...] 10/19/2020 Assessment & Plan (10/19/2020 1:38 PM ACTIVITY MANAGER): Talk to Primary Doctor regarding the Hyperthyroidism Allergic rhinitis 09/18/2020 Assessment & Plan (04/07/2022 2:57 PM CDT): Continue nasal saline and Flonase and Astelin twice daily may use [place] gel or Aquaphor apply pea-size amount into each nostril with a cotton tipped applicator, being carefully just to tuck it into each nostril, then massage soft portion of the outer nose to massage the ointment around inside the nose. Cetirizine 10 mg (Zyrtec) daily Assessment & Plan (12/20/2021 1:51 PM ACTIVITY MANAGER): Nasal saline spray (Simply saline, Little Remedies, [place], [place]) 2 second sprays or 2 squeezes into [...] Astelin Assessment & Plan (11/27/2020 8:49 PM ACTIVITY MANAGER): Continue nasal saline followed by Astelin (azelastine) 2 sprays into each nostril while looking down over the sink, do not sniff in or blow nose after use for at least 30 minutes twice daily Assessment & Plan (09/18/2020 10:44 AM ACTIVITY MANAGER): Continue nasal saline and Astelin Continue Cetirizine [...] meal Assessment & Plan (12/20/2021 1:51 PM ACTIVITY MANAGER): Nasal saline spray (Simply saline, Little Remedies, [place], [place]) 2 second sprays or 2 squeezes into [...] days Assessment & Plan (10/19/2020 1:38 PM ACTIVITY MANAGER): Bactroban apply pea-size amount into each nostril [...] Nasal saline spray (Simply saline, Little Remedies, [place], [place]) 2 second sprays or 2 squeezes into [...] Nasal saline spray (Simply saline, Little Remedies, [place], [place]) 2 second sprays or 2 squeezes into [...] 10/12/2019 Assessment & Plan (11/20/2019 2:12 PM ACTIVITY MANAGER): He came down with a respiratory infection [...] Pepcid. Assessment & Plan (09/18/2020 12:53 PM ACTIVITY MANAGER): Continue nasal saline and Astelin Continue Cetirizine [...] 02/08/2019 Assessment & Plan (11/20/2019 2:13 PM ACTIVITY MANAGER): He is no longer seeing Dr. Mckenzie [...] 04/04/2016 Assessment & Plan (11/11/2019 11:12 AM ACTIVITY MANAGER): Blood pressure is in a good range. [...] 11/09/2015 Assessment & Plan (11/11/2019 11:12 AM ACTIVITY MANAGER): Total and LDL cholesterol are low, but HDL is also low. I recommended increased activity level to bring up his HDL. 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 Benjamin. Assessment & Plan (11/11/2019 11:14 AM ACTIVITY MANAGER): He had stents in 2013. He denies [...] disease. Assessment & Plan (11/20/2019 2:16 PM ACTIVITY MANAGER): He does not have a glucometer so [...] CPAP. Assessment & Plan (11/11/2019 11:14 AM ACTIVITY MANAGER): He is noncompliant with CPAP. Assessment & [...] 2004. Assessment & Plan (11/11/2019 11:15 AM ACTIVITY MANAGER): He continues to have problems with anxiety [...] Encounters Date Type Department Care Team Description 05/31/2025 10:00 AM CDT Ancillary Procedure [place] [facility] [id number] 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 PARTIAL KNEE ARTHROPLASTY 10/12/2006 - 10/11/[address] Moore. REVISION TOTAL KNEE ARTHROPLASTY - 10/11/[address] Esquivel, [place]. CORONARY STENT PLACEMENT 10/12/2013 - 10/11/2014 Three [...] reflux disease) Depression Anxiety DM (diabetes mellitus) HTN (hypertension) HLD (hyperlipidemia) Adenomatous colon polyp HFrEF (heart failure with re duced ejection fraction) Family History Medical History Relation Name Comments [...] making you feel afraid or unsafe? Denies 12/20/2024 Sex and Gender Information Value Date Recorded Sex Assigned at Not on file Legal Sex Male 12:35 AM ACTIVITY MANAGER Gender Identity Male 04/10/2020 12:52 PM CDT Sexual Orientation Straight 04/10/2020 12 :52 PM CDT Obstetrics History Last Filed Vital Signs Vital Sign Reading Time Taken Comments Blood Pressure 107/67 05/22/2025 1:42 PM CDT Pulse 80 05/22/2025 1:42 PM CDT Temperature 36.2 C (97.2 F) 12/20/2024 12:01 PM CDT Respiratory Rate 18 05/22/2025 1:42 PM CDT Oxygen Saturation 100% 12/20/2024 4:15 PM CDT Inhaled Oxygen Concentration - - Weight 83 kg (183 lb) 05/22/2025 1:42 PM CDT Height 175.3 cm (5' 9) 05/22/2025 1:42 PM CDT Body Mass Index 27.02 05/22/2025 1:42 PM CDT Plan of Treatment Health Maintenance [...] season) 2024 2021, 01/25/2021 Influenza Vaccine (#1) 2025 10/12/2006, 2006 Fall Risk Assessment 08/31/2025 08/31/2024, 10/23/19 24 eGFR 12/20/2025 12/20/2024, 01/11, 11/02/2019 Colon Cancer Screening-Colonoscopy 08/31/2034 08/31/2024, 03/03/2019 Colon Cancer Screening-CT Colonography Discontinued 08/31/2024, 03/03/2019 Colon Cancer Screening-DNA Stool Discontinued 08/31/20 24, 03/03/2019 Colon Cancer Screening-FIT Discontinued 08/31/2024, Colon Cancer Screening-Sigmoidoscopy Discontinued 08/31/2024, 03/03/2019 Medical Devices Implanted Type Area Academic Physician Device Identifier Shelf Expiration Date Model / Serial / Lot [employer] Inc Defibrillator Cardiac Acticor 7 Vr-T Dx [id number] - [id number] - [id number] Implanted:Qty: 1 on 03/02/2024 by Vitaliy Donis MD at [facility] ICD [employer] 10/11/2024 [id number] / [id number] / Biot[employer]ik Inc Lead Defibrillator Plexa Promri L65cm L15cm Cardiac Df4 Sterile Latex Free Disposable S Dx [id number] - [id number] - [id number] Implanted:Qty: 1 on 03/02/2024 by Vitaliy Donis MD at [facility] Lead [employer] 10/11/2025 [id number] / [id number] / Medtronic Inc Tyrx Absorbable Antibacterial Envelope-Large 3.3x2.9in [id number] - [id number] Implanted:Qty: 1 on 03/02/2024 by Vitaliy Donis MD at [facility] Mesh Medtronic Inc 12/10/2024 [id number] / / [id number] Linux Net[employer]x Angio-Seal Vip 6fr Closere Device [id number] - [id number] Implanted:Qty: 1 on 02/04/2024 by Doron Benjamin MD at [facility] Other - see comments [employer] 07/12/2024 [id number] / / [id number] Procedures Procedure Name Priority Date/Time Associated Diagnosis Comments DEVICE CHECK - REMOTE Routine 05/30/2025 8:17 AM CDT ICD (implantable cardioverter-defibr illator) in place Cardiomyopathy, ischemic Coronary artery disease involving cherokee coronary artery of cherokee heart with angina pectoris EGFR STAT 12/20/2024 12:22 PM CDT COLONOSCOPY 08/31/2024 7:30 AM ACTIVITY MANAGER HEMOGLOBIN A1C Routine 11/02/2019 9:00 AM ACTIVITY MANAGER Hypertension associated with diabetes (HCC) Type 2 diabetes mellitus with complication, without long-term current use of insulin (HCC) LIPID PANEL Routine 11/02/2019 9:00 AM ACTIVITY MANAGER Hypertension associated with diabetes (HCC) Mixed hyperlipidemia Type 2 diabetes mellitus with complication, without long-term current use of insulin (HCC) ALBUMIN CREATININE RATIO, URINE Routine 11/02/2019 9:00 AM ACTIVITY MANAGER Hypertension associated with diabetes (HCC) Mixed hyperlipidemia Type 2 diabetes mellitus with complication, without long-term current use of insulin (HCC) PSA SCREEN Routine 03/09/2019 11:25 AM CDT Screening for prostate cancer from Last 3 Months or Most Recently Relevant to Health Maintenance Results * DEVICE CHECK - REMOTE (05/30/2025 8:17 AM CDT) Anatomical Region Laterality Modality Other Narrative 06/03/2025 7:26 AM CDT Images from the original result were not included. 05/31/2025 [employer] quarterly remote device check NOTE The following shows snippets from the complete quarterly report. The complete report in its entirety is attached to this Result Text in Agricultural Mechanic Presenting EGM Last in-office check 05/22/2025 Next in-office check 05/28/2026 SC ICD, implanted 03/02/2024 Battery longevity = 100% AT/AF burden 0% PVC burden 1%; Last value 108 PVC/h measured on May 25, 2025. (see graph above) RVp 0% Device Nurse Review and Recommendations below Reviewed By Kaur Bernal CNC MILLING MACHINIST at 12:58 PM ATTESTATION I have reviewed the device interrogation report associated with this encounter in detail. I agree with the documentation recorded/scanned into the electronic medical record. Recommendations: Continue current device follow-up. Doron Benjamin MD MD Review and Recommendations below (please forward an in-basket message to your MA if check requires attention) us Doron Benjamin MD [facility] PROCEDURES Final Result * eGFR (12/20/2024 12:22 PM CDT) eGFR 75 >=60 mL/min/1. 73 m2 Comment: Interpretive Data [...] interpretive data was last reviewed 2021. Blood 12/20/2024 12:2 2 PM CDT 12/20/2024 12:34 PM CDT us Stephani Bhat MD LAB BLOOD ORDERABLES Elizabeth vila Result [facility]) [facility] Department [place] [address] * Colonoscopy (08/31/2024 7:30 AM ACTIVITY MANAGER) Anatomical Region Laterality Modality Other Narrative Procedure Note Mich Krishnan, DO - 08/31/2024 7:30 AM CST [facility] Patient Name: Mervin Marie Procedure Date: [...] under direct vision. The Pediatric Colonoscope [id number] was introducedthrough the anus and advanced to [...] 7:30 AM Procedure Code(s): --- Professional --- 66720, Colonoscopy, flexible; with removal of tumor(s), polyp(s), or other lesion(s) by snare technique --- Technical --- 74455, Colonoscopy, flexible; with removal of tumor(s), polyp(s), or other lesion(s) by snare technique Diagnosis Code(s): --- Professional --- D12.2, Benign neoplasm of ascending colon R19.5, Other fecal abnormalities --- Technical --- D12.2, Benign neoplasm of ascending colon R19.5, Other fecal abnormalities CPT copyright 2020 [employer]. All rights reserved. The codes documented in this report are preliminary and upon overlock collar setter reviewmay be revised to meet current compliance requirements. Recognized by the [place] [employer] for promoting quality in endoscopy Mich Krishnan DO ENDOSCOPY PROCEDURES Final Res ult * Albumin Creatinine Ratio, Urine (11/02/2019 9:00 AM ACTIVITY MANAGER) Creatinine, ur 173 20 - 320 mg/dL [facility] [place] Microalbumin, ur 4.5 See Note: mg/dL [facility] [place] Comment: Reference Range: Reference Range Not established [...] a diagnostic category. Urine 11/02/2019 9:00 AM ACTIVITY MANAGER 11/02/2019 9:01 AM ACTIVITY MANAGER Narrative [facility] - 11/03/2019 11:51 AM ACTIVITY MANAGER FASTING:YES FASTING: YES Resulting Agency Comment Performing Organization Information: Site ID: [place] Name: [facility] Address: [address] [address] Director: Walker Marquez D.O., MPH Narayan Wheeler MD LAB URINE ORDERABLES Final Re sult Performing Organization Address [facility] de Phone Number KIRSTIN [facility] - [facility] [place] * (ABNORMAL) Hemoglobin A1c (11/02/2019 9:00 AM ACTIVITY MANAGER) [facility] Hgb A1C 7.4(H) <5.7 % of total Hgb [facility] Comment: For someone without known diabetes, [...] children. Blood specimen (specimen) 11/02/2019 9:00 AM ACTIVITY MANAGER 11/02/2019 9:01 AM ACTIVITY MANAGER Narrative [facility] - 11/03/2019 11:51 AM ACTIVITY MANAGER FASTING:YES FASTING: YES Resulting Agency Comment Performing Organization Information: Site ID: [place] Name: [facility] Address: [id number] [place] [address] [facility] [place] [address] Director: Walker Marquez D.O., MPH Narayan Wheeler MD LAB BLOOD ORDERABLES Final Re sult Performing Organization Address [facility] de Phone Number KIRSTIN [facility] [place] * (ABNORMAL) Lipid panel (11/02/2019 9:00 AM ACTIVITY MANAGER) [facility] Cholesterol 91 <200 mg/dL [facility] [place] HDL 29(L) >40 mg/dL [facility] [place] Triglycerides 208(H) <150 mg/dL [facility] [place] Comment: If a non-fasting specimen was collected, consider repeat triglyceride testing on a fasting specimen if clinically indicated. Luh et al. J. of Clin. Lipidol. 2015;9:129-169. LDL 35 mg/dL (calc) [facility] [place] Comment: Reference range: <100 Desirable range <100 mg/dL for primary prevention; <70 mg/dL for patients with CHD or diabetic patients with > or = 2 CHD risk factors. LDL-C is now calculated using the Kristin calculation, which is a validated novel method providing better accuracy than the Friedewald equation in the estimation of LDL-C. Davide GRULLON et al. JANICE. 2013;310(19): 8778-2095 (http://education.Quote Roller/faq/DYG452) Chol/HDL ratio 3.1 <5.0 (calc) [facility] Non-HDL, (LDL+VLDL) 62 <130 mg/dL (calc) [facility] Comment: For patients with diabetes plus 1 major ASCVD risk factor, treating to a non-HDL-C goal of <100 mg/dL (LDL-C of <70 mg/dL) is considered a therapeutic option. Blood specimen (specimen) 11/02/2019 9:00 AM ACTIVITY MANAGER 11/02/2019 9:01 AM ACTIVITY MANAGER Narrative [facility] - 11/03/2019 11:51 AM ACTIVITY MANAGER FASTING:YES FASTING: YES Resulting Agency Comment Performing Organization Information: Site ID: [place] Name: [facility] Address: [address] [facility] [place] [address] Director: Walker Marquez D.O., MPH us Narayan Wheeler MD LAB BLOOD ORDERABLES Final Re sult KIRSTIN [facility] [place], [place] * PSA screen (03/09/2019 11:25 AM CDT) PSA 2.9 < OR = 4.0 ng/mL [facility] Comment: The total PSA value from this assay system is standardized against the WHO standard. The test result will be approximately 20% lower when compared to the equimolar-standardized total PSA (Letitia [place]). Comparison of serial PSA results should be [...] Organization Information: Site ID: [id number] Name: [facility] Address: [address] [address] Director: Walker Marquez D.O., MPH us Narayan Wheeler MD LAB BLOOD ORDERABLES Final Re sult KIRSTIN [facility] - [facility] [place] from Last 3 Months or Most Recently Relevant to Health Maintenance Insurance [facility] Advance Directives For more information, please contact: [phone] * Full Code (Latest Code Status on File) Date Activated Date Inactivated Comments 08/31/2024 7:37 AM 08/31/2024 3:42 PM * Full Code Date Activated Date Inactivated Comments 08/31/2024 7:37 AM 08/31/2024 7:37 AM * Full Code Date Activated Date Inactivated Comments 02/04/2024 10:01 AM 02/05/2024 11:32 AM Care Teams Underwriting Operations Manager Relationship Specialty Start Date End Date Kerri Zuniga NP [address] [place] [address] PCP - General Nurse Practitioner 08/11/24 [place] [address] [place] [address] [place] [address] Consulting Physician Urology 11/30/23
--- OUTSIDE RECORDS SUMMARY | 2025-06-05 11:02 | XMS_ITS | Encounter Summary ---
Author Organization [facility] Address [address] [place] [address] Phone Care Team Providers Care Chemical Equipment Repairer Name Role Phone Akhil Taylor MD Primary Care Provider Reason for Visit * Reason Comments Medication Refill Encounter Details Date Type Department Care Team (Late st Contact Info) Description 09/03/2022 Refill [facility] - Primary Care - [address] [place] [address] Candie Johns APRN, [...] PM CST Pt should contact pcp first. UER SIZER documented in this encounter Plan of Treatment Not on file documented as of this encounter Visit Diagnoses Not on filedocumented in this encounter Additional Health Concerns Assessment Noted Time PHQ-9 Depression Total Score: 0 06/07/20 21 1:00 PM CDT documented as of this encounter Care Teams Chemical Equipment Repairer Relationship Specialty Start Date End Date Akhil Taylor MD PCP - General Family Medicine 08/28/22 documented as of this encounter
--- OUTSIDE RECORDS SUMMARY | 2025-06-05 11:02 | XMS_ITS | Encounter Summary ---
Author Organization [facility] Address [address] [place] [address] Phone Care Team Providers Care Radial Drill Press Operator Name Role Phone Candie Johns APRN, CNP Primary Care P rovider Akhil Taylor MD Primary Care Provider [phone] Reason for Visit * Reason Comments Medication Refill Encounter Details Date Type Department Care Team (Late st Contact Info) Description 11/24/[address] [facility] - Primary Care - [address] [place] [address] Candie Johns APRN, CNP [address] [place] [address] Medication Refill Social History Tobacco [...] CNP - 11/26/2020 12:11 PM CST duplicate RMEDIATE TEACHER * Telephone Encounter - Nasreen Mello RN - 11/26/2020 11:58 AM INTERMEDIATE TEACHER Medication failed the protocol, provider to [...] Visits 6 months [address] [facility] Candie Johns APN, CNP 2 years ago Anxiety [facility] [place] MD 2 years ago Essential hypertension [facility] [place] MD 2 years ago Bronchitis [facility] [place] MD 2 years ago Essential hypertension [facility] [place] MD Upcoming Appointments Future Appointments In 4 days Candie Johns APN, CNP [facility] - Recent and Past Visits Recent Visits Date Type Provider Dept 05/16/20 Office Visit Candie Johns APN, CNP [facility] Showing recent visits within past 460 days with a meds authorizing provider and meeting all other requirements Future Appointments Date Type Provider Dept 11/30/20 Appointment Candie Johns APN, CNP [facility] Showing future appointments within next 90 days with a meds authorizing provider and meeting all other requirements Failed - This refill cannot be delegated RMEDIATE TEACHER documented in this encounter Plan of Treatment Not on file documented as of this encounter Visit Diagnoses Not on filedocumented in this encounter Additional Health Concerns Assessment Noted Time PHQ-9 Depression Total Score: 0 05/16/20 20 1:00 PM CDT documented as of this encounter Care Teams Radial Drill Press Operator Relationship Specialty Start Date End Date Candie Johns APRN, EMPLOYEE DEVELOPMENT SPECIALIST [address] [place] [address] PCP - General Advanced Practice Nurse 05/16/2008/27 Akhil Taylor MD [address] [place] [address] PCP - General Family Medicine 08/28/22 documented as of this encounter
--- OUTSIDE RECORDS SUMMARY | 2025-06-05 11:02 | XMS_ITS | Encounter Summary ---
Author Organization [facility] Address [address] [place] [address] Phone Care Team Providers Care Employment Evaluator/Case Manager Name Role Phone Candie Johns APRN, CNP Primary Care P rovider Akhil Taylor MD Primary Care Provider [phone] Reason for Visit * Reason Comments Medication Refill Encounter Details Date Type Department Care Team (Late st Contact Info) Description 11/22/2020 Refill [facility] - Primary Care - [address] [place] [address] Candie Johns APRN, CNP [address] [place] [address] Medication Refill Social History Tobacco [...] CNP - 11/22/2020 3:15 PM CST duplicate RVISOR CORRESPONDENCE SECTION * Telephone Encounter - Nasreen Mello RN - 11/22/2020 3:01 PM SUPERVISOR CORRESPONDENCE SECTION Medication failed the protocol, provider to review [...] Visits 6 months ago Essential hypertension [facility] Candie Johns APN, CNP 2 years ago Anxiety [facility] Alicea MD 2 years ago Essential hypertension [facility] R[facility] MD 2 years ago Bronchitis [facility] MD 2 years ago Essential hypertension [facility] MD Upcoming Appointments Future Appointments In 1 week Candie Johns APN, CNP [facility] - Recent and Past Visits Recent Visits Date Type Provider Dept 05/16/20 Office Visit Candie Johns APN, CNP [facility] Showing recent visits within past 460 days with a meds authorizing provider and meeting all other requirements Future Appointments Date Type Provider Dept 11/30/20 Appointment Candie Johns APN, CNP [facility] Showing future appointments within next 90 days with a meds authorizing provider and meeting all other requirements Failed - This refill cannot be delegated RVISOR CORRESPONDENCE SECTION documented in this encounter Plan of Treatment Not on file documented as of this encounter Visit Diagnoses Not on filedocumented in this encounter Additional Health Concerns Assessment Noted Time PHQ-9 Depression Total Score: 0 05/16/20 20 1:00 PM CDT documented as of this encounter Care Teams Employment Evaluator/Case Manager Relationship Specialty Start Date End Date Candie Johns APRN, SKEIN DYER [address] [place] [address] PCP - General Advanced Practice Nurse 05/16/2008/27 Akhil Taylor MD [address] [place] [address] PCP - General Family Medicine 08/28/22 documented as of this encounter
--- OUTSIDE RECORDS SUMMARY | 2025-06-05 11:02 | XMS_ITS | Encounter Summary ---
Author Organization [facility] Address [address] [place] [address] Phone Care Team Providers Care Eligibility Supervisor Name Role Phone Candie Johns APRN, CNP Primary Care P rovider Akhil Taylor MD Primary Care Provider [phone] Reason for Visit * Reason Onset Date Comments Medication Refill Medication Refill 06/04/2021 Encounter Details Date Type Department Care Team (Late st Contact Info) Description 06/03/2021 Refill [facility] - Primary Care - [address] [place] [address] Candie Johns APRN, CNP [address] [place] [address] Medication Refill; Medication Refill Social [...] documented as of this encounter Care Teams Eligibility Supervisor Relationship Specialty Start Date End Date Candie Johns APRN, CHARGING BOARD OPERATOR [address] [place] [address] PCP - General Advanced Practice Nurse 05/16/2008/27 Akhil Taylor MD [address] [place] [address] PCP - General Family Medicine 08/28/22 documented as of this encounter
--- OUTSIDE RECORDS SUMMARY | 2025-06-05 11:02 | XMS_ITS | Encounter Summary ---
Author Organization [facility] Address [address] [place] [address] Phone Care Team Providers Care Ship Construction Teacher Name Role Phone Candie Johns APRN, CNP Primary Care P rovider Akhil Taylor MD Primary Care Provider Reason for Visit * Reason Comments Medication Refill Encounter Details Date Type Department Care Team (Late st Contact Info) Description 03/31/2021 Refill [facility] - Primary Care - [address] [place] [address] Candie Johns APRN, CNP [address] [place] [address] Medication Refill Social History Tobacco [...] documented as of this encounter Care Teams Ship Construction Teacher Relationship Specialty Start Date End Date Candie Johns APRN, HAND UPPER AND BOTTOM LACER [address] [place] [address] PCP - General Advanced Practice Nurse 05/16/2008/27 Akhil Taylor MD [address] [place] [address] PCP - General Family Medicine 08/28/22 documented as of this encounter
--- OUTSIDE RECORDS SUMMARY | 2025-06-05 11:02 | XMS_ITS | Encounter Summary ---
Author Organization [facility] Address [address] [place] [address] Phone Care Team Providers Care Rn Military Name Role Phone Akhil Taylor MD Primary Care Provider [phone] Reason for Visit * Reason Comments Medication Refill Encounter Details Date Type Department Care Team (Late st Contact Info) Description 10/20/2022 Refill [facility] - Primary Care - [address] [place] [address] Candie Johns APRN, ZACHARY [address] [place] [address] Medication Refill Social History Tobacco [...] CST Patient no longer under provider/office care. DEVELOPER PROGRAMMER documented in this encounter Plan of Treatment Not on file documented as of this encounter Visit Diagnoses Diagnosis Pure hypercholesterolemia Hyperlipidemia associated with type 2 diabetes mellitus (HCC) documented in this encounter Additional Health Concerns Assessment Noted Time PHQ-9 Depression Total Score: 0 06/07/20 21 1:00 PM CDT documented as of this encounter Care Teams Rn Military Relationship Specialty Start Date End Date Akhil Taylor MD PCP - General Family Medicine 08/28/22 documented as of this encounter
--- OUTSIDE RECORDS SUMMARY | 2025-06-05 11:02 | XMS_ITS | Encounter Summary ---
Author Organization [facility] Address [address] [place] [address] Phone Care Team Providers Care Industrial Machine Assembler Name Role Phone Akhil Taylor MD Primary Care Provider [phone] Reason for Visit * Reason Comments Medication Refill Encounter Details Date Type Department Care Team (Late st Contact Info) Description 10/25/2022 Refill [facility] - Primary Care - [address] [place] [address] Candie Johns APRN, ZACHARY [address] [place] [address] Medication Refill Social History Tobacco [...] documented as of this encounter Care Teams Industrial Machine Assembler Relationship Specialty Start Date End Date Akhil Taylor MD PCP - General Family Medicine 08/28/22 documented as of this encounter
--- OUTSIDE RECORDS SUMMARY | 2025-06-05 11:02 | XMS_ITS | Clinical Summary ---
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 Bronchitis 09/24/2018 05/16/2020 Left elbow pain 05/19/2017 05/16/2020 Immunizations Immunization Administration Dates Next Due Covid-19, [...] 1:03 PM CDT Height 175.3 cm (5' 9) 12/24/2021 1:03 PM CDT Body Mass Index 35.15 12/24/2021 1:03 PM CDT Plan of Treatment Health Maintenance Due Date Last Done Comments Diabetes: Eye Exam 1957 Diabetes: Foot Exam 1955 Hepatitis C Virus (HCV) Screening 1955 TdaP Immunization 1957 Cologuard 2002 Immunochemical Fecal Occult Blood 2002 Pneumococcal Immunization (50+ years) (2 of 2 - PCV) 10/12/2006 10/12/2005 Zoster Immunization (1 of 2) 2007 Respiratory Syncytial Virus (RSV) Immunization (Adult) (1 - Risk 60-74 years 1-dose series) 2017 Colonoscopy 03/03/2020 03/03/2019, 02/10, 01/13/2011 Colorectal Cancer Screening 03/03/2020 Diabetes: Hemoglobin A1c 06/15/2022 022, 06/20/2021, 12/04/2020, Additional history exists Diabetes: Nephropathy Screening 12/13/2022 12/13/2021, 06/20/2021, 12/04/2020, Additional history exists SARS-COV-2 Immunization ( season) 2024 2021, 01/25/2021 Influenza Immunization (#1) 2025 10/12/2006, 0 10/12/2006 Pneumococcal Immunization Combined Discontinued 10/12/2005 PSA Discussion Completed 05/25/2020, 11/09/2015 Hepatitis B Immunization Aged Out No longer eligible based on patient's age to complete this topic Human Papillomavirus (HPV) Immunization Aged Out No longer eligible based on patient's age to complete this topic Meningococcal Immunization (ACWY) Aged Out No longer eligible based on patient's age to complete this topic Rotavirus Immunization Aged Out No lo nger eligible based on patient's age to complete this topic Procedures Procedure Name Priority Date/Time Associated Diagnosis Comments CMP (COMPREHENSIVE METABOLIC PANEL) Routine 12/13/2021 10:47 AM HOT PUNCH PRESS OPERATOR Essential hypertension Acquired hypothyroidism Coronary artery disease of [place] artery of [place] heart with stable angina pectoris (HCC) Type 2 diabetes mellitus without complication, without long-term current use of insulin (HCC) Pure hypercholesterolemia 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) HEMOGLOBIN A1C W/ ESTIMATED GLUCOSE Routine 12/13/2021 10:47 AM HOT PUNCH PRESS OPERATOR Essential hypertension Acquired hypothyroidism Coronary artery disease of [place] artery of [place] heart with stable angina pectoris (HCC) Type [...] A1C W/ ESTIMATED GLUCOSE (12/13/2021 10:47 AM HOT PUNCH PRESS OPERATOR) HGB-A1C 6.8(H) 4.0 - 6.0 % 12/13/2021 3:05 PM HOT PUNCH PRESS OPERATOR [facility] Est Average Glucose 148.5 mg/dL 12/13/2021 3:05 PM HOT PUNCH PRESS OPERATOR [facility] Blood Venipuncture / Unknown 12/13/2021 10:47 AM HOT PUNCH PRESS OPERATOR 12/13/2021 10:47 AM HOT PUNCH PRESS OPERATOR Narrative [facility] - 12/13/2021 3:05 PM HOT PUNCH PRESS OPERATOR HEMOGLOBIN A1C: DIABETIC PATIENTS: WELL-CONTROLLED: 6.2 - 7.0 INTERMEDIATE WELL-CONTROLLED: 7.0 - 9.0 POORLY-CONTROLLED: >9.0 Candie Johns APRN, CNP CHEMISTRY ORDER CESAR Final Result [facility] [place] [address] * (ABNORMAL) CMP (COMPREHENSIVE METABOLIC PANEL) (12/13/2021 10:47 AM HOT PUNCH PRESS OPERATOR) SODIUM 141 136 - 144 mmol/L 12/13/2021 3:02 PM HOT PUNCH PRESS OPERATOR [facility] POTASSIUM 4.6 3.5 - 5.1 mmol/L 12/13/2021 3:02 PM HOT PUNCH PRESS OPERATOR [facility] CHLORIDE 104 100 - 110 mmol/L 12/13/2021 3:02 PM [facility] CO2, VENOUS 20(L) 22 - 32 mmol/L 12/13/2021 3:02 PM [facility] ANION GAP 21.6(H) 8.0 - 20.0 mmol/L 12/13/2021 3:02 PM [facility] GLUCOSE 170(H) 70 - 99 mg/dL 12/13/2021 3:02 PM [facility] BUN 21 8 - 23 mg/dL 12/13/2021 3:02 PM [facility] CREATININE, BLOOD 0.97 0.80 - 1.30 mg/dL 12/13/2021 3:02 PM [facility] BUN/CREATININE RATIO 22(H) 12 - 20 ratio 12/13/2021 3:02 PM [facility] TOTAL PROTEIN 7.2 6.0 - 8.3 g/dL 12/13/2021 3:02 PM [facility] ALBUMIN 4.6 3.5 - 5.2 g/dL 12/13/2021 3:02 PM [facility] Comment: The colormetric methods used for the determination of Albumin may lead to falsely elevated test results in patients suffering from renal failure or insufficiency due to interference with other proteins. A/G RATIO 1.8 1.0 - 2.0 12/13/2021 3:02 PM [facility] CALCIUM 9.5 8.9 - 10.3 mg/dL 12/13/2021 3:02 PM [facility] T BILI 0.9 <=1.2 mg/dL 12/13/2021 3:02 PM [facility] SGOT (AST) 22 <=40 U/L 12/13/2021 3:02 PM [facility] SGPT (ALT) 15 <=41 U/L 12/13/2021 3:02 PM [facility] ALKALINE PHOSPHATASE 100 40 - 130 U/L 12/13/2021 3:02 PM [facility] GFR, EST. NONAFRICAN >60 >=60 12/13/2021 3:02 PM HOT PUNCH PRESS OPERATOR [facility] GFR, EST. >60 >=60 022 3:02 PM HOT PUNCH PRESS OPERATOR [facility] Comment: Creatinine Clearance is the preferred criteria for selecting drug dose adjustments in renally impaired patients. The GFR is provided as additional pertinent clinical information. GFR is reported in mL/min/1.73 sq m. IS THE PATIENT REQUIRED TO BE FASTING? No 12/13/2021 3:02 PM HOT PUNCH PRESS OPERATOR [facility] Blood Venipuncture / Unknown 12/13/2021 10:47 AM HOT PUNCH PRESS OPERATOR 12/13/2021 10:47 AM HOT PUNCH PRESS OPERATOR Candie Johns APRN, ZACHARY CHEMISTRY ORDER CESAR Final Result Performing Organization Address City/[facility]/ZIP Co de Phone Number [facility] [place] [address] * PSA SCREEN (05/25/2020 11:48 AM CDT) PSA SCREEN, TOTAL 3.13 <=4.00 ng/mL 05/25/2020 4:49 PM CDT [facility] Blood Venipuncture / Unknown 05/25/2020 11:48 AM CDT 05/25/2020 11:48 AM CDT Narrative [facility] - 05/25/2020 4:49 PM CDT PSA NOTE: The PSA value should be used in conjunction with information available from clinical evaluation and other diagnostic procedures. Candie Johns APRN, SEASONAL TAX PREPARER CHEMISTRY ORDER CESAR Final Result [facility] [address] [place] [address] * HM COLONOSCOPY (01/13/2011) Rl Sharma MD PROCEDURE/MINOR SURGICAL ORDE RABLES Final Result from Last 3 Months or Most Recently Relevant to Health Maintenance Insurance MEDICARE C ESSENCE Advance Directives Documents on File Type Date Recorded Patient Hotel Maid Expl anation Power of Chief Digital Media Officer for Health Care 03/04/2019 9:37 AM POA-HC [...] measures to stabilize the patient. Care Teams Erp Implementation Consultant Relationship Specialty Start Date End Date Akhil Taylor MD PCP - General Family Medicine 08/28/22
--- OUTSIDE RECORDS SUMMARY | 2025-06-05 11:02 | XMS_ITS | Encounter Summary ---
Author Organization [facility] Address [address] [place] [address] Phone Care Team Providers Care Manual Machinist Name Role Phone Candie Johns APRN, CNP Primary Care P rovider Akhil Taylor MD Primary Care Provider [phone] Reason for Visit * Reason Comments Medication Refill Encounter Details Date Type Department Care Team (Late st Contact Info) Description 06/22/2021 Refill [facility] - Primary Care - [address] [place] [address] Candie Johns APRN, CNP [address] [place] [address] Medication Refill Social History Tobacco [...] documented as of this encounter Care Teams Manual Machinist Relationship Specialty Start Date End Date Candie Johns APRN, CUSHION COVER INSPECTOR [address] [place] [address] PCP - General Advanced Practice Nurse 05/16/2008/27 Akhil Taylor MD [address] [place] [address] PCP - General Family Medicine 08/28/22 documented as of this encounter
--- OUTSIDE RECORDS SUMMARY | 2025-06-05 11:02 | XMS_ITS | Encounter Summary ---
Author Organization [facility] Address [address] [place] [address] Phone Care Team Providers Care Facilities Custodian Name Role Phone Candie Johns APRN, CNP Primary Care P rovider Akhil Taylor MD Primary Care Provider Reason for Visit * Reason Comments Medication Refill Encounter Details Date Type Department Care Team (Late st Contact Info) Description 03/08/2022 Refill [facility] - Primary Care - [address] [place] [address] Candie Johns APRN, CNP [address] [place] [address] Medication Refill Social History Tobacco [...] Unspecified essential hypertension Coronary artery disease of [place] artery of [place] heart with stable angina pectoris (HCC) documented in this encounter Additional Health Concerns Assessment Noted Time PHQ-9 Depression Total Score: 0 06/07/20 21 1:00 PM CDT documented as of this encounter Care Teams Facilities Custodian Relationship Specialty Start Date End Date Candie Johns APRN, WATERWORKS OPERATOR [address] [place] [address] PCP - General Advanced Practice Nurse 05/16/2008/27 Akhil Taylor MD [address] [place] [address] PCP - General Family Medicine 08/28/22 documented as of this encounter
--- OUTSIDE RECORDS SUMMARY | 2025-06-05 11:02 | XMS_ITS | Encounter Summary ---
Author Organization [facility] Address [address] [place] [address] Phone Care Team Providers Care Turn Down Man Name Role Phone Akhil Taylor MD Primary Care Provider [phone] Reason for Visit * Reason Comments Medication Refill Encounter Details Date Type Department Care Team (Late st Contact Info) Description 09/03/2022 Refill [facility] - Primary Care - [address] [place] [address] Candie Johns APRN, ZACHARY [address] [place] [address] Medication Refill Social History Tobacco [...] 1000 MG Tablet 180 Tablet 0 08/28/2022 STED LIVING ASSISTANT documented in this encounter Plan of Treatment Not on file documented as of this encounter Visit Diagnoses Not on filedocumented in this encounter Additional Health Concerns Assessment Noted Time PHQ-9 Depression Total Score: 0 06/07/20 21 1:00 PM CDT documented as of this encounter Care Teams Turn Down Man Relationship Specialty Start Date End Date Akhil Taylor MD PCP - General Family Medicine 08/28/22 documented as of this encounter
--- OUTSIDE RECORDS SUMMARY | 2025-06-05 11:02 | XMS_ITS | Encounter Summary ---
Author Organization [facility] Address [address] [place] [address] Phone Care Team Providers Care Lead Radiation Therapist Name Role Phone Candie Johns APRN, CNP Primary Care P rovider Akhil Taylor MD Primary Care Provider [phone] Reason for Visit * Reason Comments Medication Refill Encounter Details Date Type Department Care Team (Late st Contact Info) Description 03/20/2022 Refill [facility] - Primary Care - [address] [place] [address] Candie Johns APRN, CNP [address] [place] [address] Medication Refill Social History Tobacco [...] as of this encounter Care Teams Lead Radiation Therapist Relationship Specialty Start Date End Date Candie Johns APRN, WIND TECHNICIAN [address] [place] [address] PCP - General Advanced Practice Nurse 05/16/2008/27 Akhil Taylor MD [address] [place] [address] PCP - General Family Medicine 08/28/22 documented as of this encounter
--- OUTSIDE RECORDS SUMMARY | 2025-06-05 11:02 | XMS_ITS | Encounter Summary ---
Author Organization [facility] Address [address] [place] [address] Phone Care Team Providers Care Sueding Machine Operator Name Role Phone Candie Johns APRN, CNP Primary Care P rovider Akhil Taylor MD Primary Care Provider Reason for Visit * Reason Comments Medication Refill Encounter Details Date Type Department Care Team (Late st Contact Info) Description 01/17/2021 Refill [facility] - Primary Care - [address] [place] [address] Candie Johns APRN, CNP [address] [place] [address] Medication Refill Social History Tobacco [...] Outpatient Visits 1 month ago Acquired hypothyroidism [facility] Candie Johns APN, CNP 8 months ago Essential hypertension [facility] Candie Johns APN, CNP 2 years ago Anxiety [facility] Rl Alicea MD 2 years ago Essential hypertension [facility] Alice[facility] MD 2 years ago Bronchitis [facility] Alice[facility] MD Upcoming Appointments Future Appointments In 4 months Candie Johns APN, CNP [facility] - Recent and Past Visits Recent Visits Date Type Provider Dept 11/30/20 Office Visit Candie Johns APN, CNP [facility] 05/16/20 Office Visit Candie Johns APN, CNP [facility] Showing recent visits within past 460 days [...] documented as of this encounter Care Teams Sueding Machine Operator Relationship Specialty Start Date End Date Candie Johns APRN, SCRAP PREPARATION SUPERVISOR [address] [place] [address] PCP - General Advanced Practice Nurse 05/16/2008/27 Akhil Taylor MD [address] [place] [address] PCP - General Family Medicine 08/28/22 documented as of this encounter
--- OUTSIDE RECORDS SUMMARY | 2025-06-05 11:02 | XMS_ITS | Encounter Summary ---
Author Organization [facility] Address [address] [place] [address] Phone Care Team Providers Care Site Physician Name Role Phone Candie Johns APRN, CNP Primary Care P rovider Akhil Taylor MD Primary Care Provider Reason for Visit * Reason Comments Medication Refill Encounter Details Date Type Department Care Team (Late st Contact Info) Description 05/08/2021 Refill [facility] - Primary Care - [address] [place] [address] Candie Johns APRN, CNP [address] [place] [address] Medication Refill Social History Tobacco [...] complication, without long-term current use of insulin documented in this encounter Additional Health Concerns Assessment Noted Time PHQ-9 Depression Total Score: 0 05/16/20 20 1:00 PM CDT documented as of this encounter Care Teams Site Physician Relationship Specialty Start Date End Date Candie Johns APRN, WELL SITE DRILLING ENGINEER [address] [place] [address] PCP - General Advanced Practice Nurse 05/16/2008/27 Akhil Taylor MD [address] [place] [address] PCP - General Family Medicine 08/28/22 documented as of this encounter
[2025-06-05 19:51] LABS: Alanine Aminotransferase 19 U/L (6-50); Albumin Level 4.7 g/dL (3.5-5.1); Alkaline Phosphatase 62 U/L (38-126); Anion Gap 10 mmol/L (4-12); Aspartate Amino Transferase 83 U/L (17-59); Bilirubin,Total 1.7 mg/dL (0.2-1.3); Blood Urea Nitrogen 22 mg/dL (9-20); Calcium 9.6 mg/dL (8.4-10.2); Carbon Dioxide 25 mmol/L (22-30); Chloride 98 mmol/L (98-107); Cholesterol 109 mg/dL (0-200); Estimated Glomerular Filt Rate > 60; Glucose 114 mg/dL (65-110); HDL Direct 37 mg/dL; Potassium 4.1 mmol/L (3.4-5.0); Sodium 133 mmol/L (137-145); Total Protein 7.7 g/dL (6.3-8.2); Triglycerides 145 mg/dL (<150)
[2025-06-05 20:15] LABS: MALB Creatinine Ratio 16.5 mg/g (0-30)
[2025-06-05 20:27] LABS: Thyroid Stimulating Hormone 1.410 uIU/mL (0.465-4.680)
[2025-06-05 21:49] LABS: Hemoglobin A1C 6.3 % (<5.7)
== END 2025-06-05 10:11 | disposition home or self-care (01) ==
PROVIDERS: PCP Nurse Practitioner Adult Health; Visit Provider Nurse Practitioner Adult Health
DX: E11.9 Type 2 diabetes mellitus without complications (principal)
CPT/HCPCS: 36415; 80053; 80061; 82043; 82565; 83036; 84443